=== PATIENT | male | born 1930 | race Caucasian/White ===

== ENCOUNTER 2017-04-12 10:20 | Outpatient (CLI) | payer MEDICARE, OTHER ==
[2017-04-12 13:29] LABS: BASOPHILS # (AUTO) 0.1 10^3/uL (0.0-0.1); BASOPHILS % (AUTO) 0.7 %; EOSINOPHILS # (AUTO) 0.2 10^3/uL (0.0-0.7); EOSINOPHILS % (AUTO) 1.9 %; HCT - HEMATOCRIT 37.6 % (42.0-52.0); HGB - HEMOGLOBIN 12.4 g/dL (14.0-18.0); LYMPHOCYTES # (AUTO) 1.7 10^3/uL (1.5-3.5); MEAN CORPUSCULAR HEMOGLOBIN 32.3 pg (27.0-31.0); MEAN CORPUSCULAR VOLUME 98.1 fL (80.0-94.0); MEAN PLATELET VOLUME 10.4 fL (7.4-11.4); MONOCYTES # (AUTO) 1.5 10^3/uL (0.0-1.0); MONOCYTES % (AUTO) 13.6 %; NEUTROPHILS # (AUTO) 7.8 10^3/uL (1.5-6.6); NEUTROPHILS % (AUTO) 68.8 %; NUCLEATED RED BLOOD CELLS AUTO 0.1 /100WBC; RED BLOOD COUNT 3.83 10^6/uL (4.70-6.10); RED CELL DISTRIBUTION WIDTH 14.4 % (12.0-15.0); UNCORRECTED WHITE BLOOD COUNT 11.3 x10^3/uL; WHITE BLOOD COUNT 11.3 x10^3/uL (4.8-10.8)
[2017-04-12 13:54] LABS: ALBUMIN/GLOBULIN RATIO 1.7 (1.0-2.2); BILIRUBIN,TOTAL 2.7 mg/dL (0.2-1.0); CALCIUM 9.5 mg/dL (8.5-10.3); CREATININE 1.4 mg/dL (0.6-1.2); POTASSIUM 4.2 mmol/L (3.5-5.0)
== END 2017-04-12 10:21 | disposition home or self-care (01) ==
LOC: LAB.WCP 10:20
PROVIDERS: ATTEND Family Medicine
DX: N18.9 Chronic kidney disease, unspecified (principal); E03.9 Hypothyroidism, unspecified; R53.83 Other fatigue
CPT/HCPCS: 36415; 80053; 84443; 85025

== ENCOUNTER 2017-05-30 10:32 | Outpatient (CLI) | payer MEDICARE, OTHER | END 2017-05-30 10:33 | disposition critical access hospital (66) | LOC: EMS 10:32 | PROVIDERS: ATTEND Surgery | DX: R47.9 Unspecified speech disturbances (principal) | CPT/HCPCS: A0425; A0429 ==

== ENCOUNTER 2017-05-30 10:49 | Observation (INO) | payer MEDICARE, OTHER ==
--- NOTE | 2017-05-30 11:14 | ED Physician Documentation ---
History of Present Illness - Stated complaint Stated Complaint: SLURRED SPEECH - Chief complaint Chief Complaint: Neuro - Additonal information Additional information: pt went to PMD for INR - on coumadin for a fib noted to have expressive aphasia time onset approx 930 PMD did neuro eval, called [facility] for advice, and was directed to send pt to ER INR was 3 upon arrival pt speech has resolved pt denies (and PMD eval agrees) numbness wekanes new hearing or vision loss no recent illness such as fever cough NVD Review of Systems Constitutional: denies: Fever Eyes: denies: Loss of vision Ears: denies: Loss of hearing GI: denies: Abdominal Pain, Nausea, Vomiting : denies: Dysuria Neurologic: reports: Difficulty speaking. denies: Generalized weakness, Focal weakness, Numbness, Headache, Head injury Endocrine: reports: Easy bruising / bleeding Immunocompromised: denies: Immunocompromised PD PAST MEDICAL HISTORY - Past Medical History Past Medical History: Yes Cardiovascular: Hypertension, High cholesterol, Atrial fibrillation Endocrine/Autoimmune: HyPOthyroidism - Past Surgical History Past Surgical History: Yes Cardiovascular: Valve replacement - Present Medications Home Medications: Ambulatory Orders Medication Instructions Recorded Confirmed Carvedilol [Coreg] 25 mg BID 05/30/17 05/30/17 Celecoxib [CeleBREX] 200 mg DAILY 05/30/17 05/30/17 Digoxin 1 tab DAILY 05/30/17 05/30/17 Levothyroxine Sodium [Synthroid] 1 tab DAILY 05/30/17 05/30/17 Losartan Potassium [Cozaar] 100 mg DAILY 05/30/17 05/30/17 Simvastatin 20 mg DAILY 05/30/17 05/30/17 Warfarin [Coumadin] 1 tab DAILY 05/30/17 05/30/17 - Allergies Allergies/Adverse Reactions: Allergies Allergy/AdvReac Type Severity Reaction Status Date / Time amoxicillin trihydrate * Allergy Unknown Verified 05/30/17 10:59 [From Augmentin] potassium clavulanate * Allergy Unknown Verified 05/30/17 10:59 [From Augmentin] - Social History Does the pt smoke?: Yes Smoking Status: Light tobacco smoker Does the pt drink ETOH?: No PD ED PE NORMAL - Vitals Vital signs reviewed: Yes - HEENT HEENT: Atraumatic - Neck Neck: Supple, no meningeal sign - Cardiac Cardiac: RRR - Respiratory Respiratory: No respiratory distress, Clear bilaterally - Abdomen Abdomen: Soft, Non tender - Derm Derm: Normal color - Extremities Extremities: No deformity - Neuro Neuro: Alert and oriented X 3, fuel manager 2-12 intact, No motor deficit, No sensory deficit, Normal speech, Other (at 11 AM NIHSS zero) Results - Vitals Vitals: Vital Signs - 24 hr 05/30/17 05/30/17 10:50 13:02 Temperature 36.8 C Heart Rate 60 48 L Respiratory 18 20 Rate Blood Pressure 134/70 H 122/69 O2 Saturation 96 97 Oxygen O2 Source Room air - EKG (time done) 1058 Rate: Rate (enter#) (60) Rhythm: Atrial flutter Intervals: RBBB (partial) Ischemia: Non specific changes - Labs Labs: Laboratory Tests 05/30/17 05/30/17 05/30/17 11:21 11:21 11:21 WBC 10.6 RBC 3.88 L Hgb 12.7 L Hct 37.4 L MCV 96.5 H MCH 32.7 H MCHC 33.9 RDW 13.2 Plt Count 216 MPV 9.9 Neut # 7.2 H Lymph # 1.8 [place] # 1.4 H Eos # 0.2 Baso # 0.1 Absolute Nucleated RBC 0.00 Nucleated RBCs 0.0 PT 35.9 H INR 3.2 H Sodium 139 Potassium 4.3 Chloride 110 Carbon Dioxide 20 L Anion Gap 9.0 BUN 18 Creatinine 1.5 H Estimated GFR (MDRD) 45 L Glucose 108 H Calcium 9.2 Last Dose Date Last Dose Time Digoxin 05/30/17 11:21 WBC RBC Hgb Hct MCV MCH MCHC RDW Plt Count MPV Neut # Lymph # [place] # Eos # Baso # Absolute Nucleated RBC Nucleated RBCs PT INR Sodium Potassium Chloride Carbon Dioxide Anion Gap BUN Creatinine Estimated GFR (MDRD) Glucose Calcium Last Dose Date UNK Last Dose Time UNK Digoxin 1.3 - Rads (name of study) CTH Radiology: See rad report (no acute infarct bleed mass hydo, consider MRI) PD MEDICAL DECISION MAKING - ED course ED course: TIA in pt with flutter ABCD2 score 4 = moderate risk will req hospitalist place in obs for further work up such as echo and carotid imaging Departure - Departure Disposition: ED Place in Observation Clinical Impression: TIA (transient ischemic attack) Qualifiers: Transient cerebral ischemia type: unspecified Qualified Code(s): G45.9 - Transient cerebral ischemic attack, unspecified
[2017-05-30 11:28] LABS: BASOPHILS # (AUTO) 0.1 10^3/uL (0.0-0.1); EOSINOPHILS # (AUTO) 0.2 10^3/uL (0.0-0.7); EOSINOPHILS % (AUTO) 1.8 %; HCT - HEMATOCRIT 37.4 % (42.0-52.0); HGB - HEMOGLOBIN 12.7 g/dL (14.0-18.0); LYMPHOCYTES # (AUTO) 1.8 10^3/uL (1.5-3.5); LYMPHOCYTES % (AUTO) 16.5 %; MEAN CORPUSCULAR HEMOGLOBIN 32.7 pg (27.0-31.0); MEAN CORPUSCULAR HGB CONC 33.9 g/dL (32.0-36.0); MEAN CORPUSCULAR VOLUME 96.5 fL (80.0-94.0); MEAN PLATELET VOLUME 9.9 fL (7.4-11.4); MONOCYTES # (AUTO) 1.4 10^3/uL (0.0-1.0); NEUTROPHILS # (AUTO) 7.2 10^3/uL (1.5-6.6); NEUTROPHILS % (AUTO) 67.7 %; RED BLOOD COUNT 3.88 10^6/uL (4.70-6.10); RED CELL DISTRIBUTION WIDTH 13.2 % (12.0-15.0); UNCORRECTED WHITE BLOOD COUNT 10.6 x10^3/uL; WHITE BLOOD COUNT 10.6 x10^3/uL (4.8-10.8)
[2017-05-30 11:36] LABS: CALCIUM 9.2 mg/dL (8.5-10.3); CREATININE 1.5 mg/dL (0.6-1.2); INR 3.2 (0.8-1.2); POTASSIUM 4.3 mmol/L (3.5-5.0); PT - PROTHROMBIN TIME 35.9 secs (9.9-12.6)
--- NOTE | 2017-05-30 12:27 | CT Preliminary Report ---
Exam: CT Head W/O IMPRESSION: 1. No definite acute infarct, intracranial hemorrhage, mass, or hydrocephalus. 2. Mild white matter changes that are age indeterminate, but appear chronic suggesting sequela of chr onic small vessel ischemic disease. If there is clinical concern for acute stroke or if clinical symp toms persist an MR brain without contrast can be considered to evaluate for small or subtle infarct. [facility] SITE ID: [id number]
--- NOTE | 2017-05-30 12:30 | CT Report ---
EXAM: CT HEAD EXAM DATE: 05/30/2017 11:57 AM. CLINICAL HISTORY: 86-year-old with supratherapeutic INR with a seizure COMPARISON: None. TECHNIQUE: Multiaxial CT images were obtained from the foramen magnum to the vertex. IV contrast: Non e. Reformats: Coronal. In accordance with CT protocol optimization, one or more of the following dose reduction techniques w ere utilized for this exam: automated exposure control, adjustment of mA and/or KV based on patient s ize, or use of iterative reconstructive technique. FINDINGS: Parenchyma: No acute parenchymal hemorrhage, mass, or midline shift. There is mild bilateral areas of white matter hypoattenuation seen in the absence of prior studies is age indeterminate, but appears chronic. No convincing CT evidence of acute infarct. Extraaxial Spaces: No abnormal extra-axial fluid collection/mass seen. Ventricles: Ventricles and sulci appear prominent but appropriate fixative volume loss. Cisterns are patent. Sinuses: Atretic left maxillary sinus with mild mucosal thickening. Remaining visualized paranasal si nuses, mastoid air cells, and middle ear cavities appear clear. Orbits: Changes of bilateral lens replacement. Bones: No evidence of fracture or calvarial defect. Other: Vascular calcifications of the cavernous ICA segments. IMPRESSION: 1. No definite acute infarct, intracranial hemorrhage, mass, or hydrocephalus. 2. Mild white matter changes that are age indeterminate, but appear chronic suggesting sequela of chr onic small vessel ischemic disease. If there is clinical concern for acute stroke or if clinical symp toms persist an MR brain without contrast can be considered to evaluate for small or subtle infarct. [facility] Referring Provider Line: [phone] SITE ID: [id number]
[2017-05-30] MEDS ORDERED: ONDANSETRON ODT 4 MG TABLET TL PRN (13:07)
[2017-05-30] MEDS ORDERED: SODIUM CHLORIDE FLUSH 0.9% 10 ML SYRINGE IVP PRN (13:07)
[2017-05-30] MEDS ORDERED: ACETAMINOPHEN 325 MG TABLET PO PRN (13:07)
[2017-05-30] MEDS ORDERED: ONDANSETRON 4 MG/2 ML VIAL IVP PRN (13:07)
[2017-05-30] MEDS ORDERED: SODIUM CHLORIDE 0.9% 1,000 ML IV ONE (14:38)
--- NOTE | 2017-05-30 15:13 | HISTORY & PHYSICAL EXAMINATION ---
Chief Complaint - Chief Complaint Chief Complaint: TIA; difficulty speaking History of Present Illness - Admitted From Admitted From:: Emergency Department - History Obtained From Records Reviewed: ED, Electrical Project Engineer, Primary care provider History obtained from: Patient, Spouse, and records reviewed. - History of Present Illness HPI Comment/Other: 86-year-old pleasant, white male with past medical history of hypertension, cardiomegaly, heart failure, rate-controlled atrial fibrillation, stent placement RCA (2007) and aortic stenosis with a [employer] aortic valve replacement (1986) on chronic anticoagulation on coumadin. He saw his lance crewmember, Dr. Askew on 03/2017 and had his annual echocardiogram completed on 05/05/2017 at [facility]. Today, the patient headed to his PCP, Dr. Napoles for his routine PT/INR lab draw when he noticed difficulty speaking and finding words. He was immediately evaluated by a nurse at the clinic and Dr. Napoles completed a neurological assessment. MD consulted with [place] neurology who advised transfer to the hospital via EMS with concern of a stroke with INR 3.0 (clinic value). This was a witnessed event. His and ED staff deny any other symptoms: facial droop, extremity weakness , gait instability, headache, numbness or tingling. In the emergency department his symptoms completely resolved approximately one hour after initiation. A head CT completed in the ED showed (1) no definite acute infarct, intracranial hemorrhage, mass or hydrocephalus (2) mild white matter changes that appears chronic with no concern for acute stroke. Patient's chart was reviewed on [facility] and he reliably attends his doctor's appointments and has had an annual echocardiogram for the past 3 years. His most recent echocardiagrm from 05/05/2017 was faxed to [facility] for review as it was not available on [facility] yet. His echo from 05/05/2017 showed a left ejection fraction 40% and regional wall motion abnormalities, primarily inferior and a normal prosthetic valve placement. His last stress test was 2014 showed fixed, irreversible distal inferior wall and distal apex. Patient is admitted overnight on observation status. He will receive an carotid ultrasound, we will not obtain an echocardiogram as he had one on 05/05/2017 that we were able to review. We are unable to obtain an MRI due to the patient' s mechanical heart valve and this was reviewed with the family. We will continue him on his home medications for his heart failure and CAD during hospitalization: statin therapy, anticoagulation, digoxin, coreg, and cozaar. At this point he is on appropriate therapy for TIA/stroke prevention and adjustments to his medications should be consulted with his PCP and/or lance crewmember. Lipid levels will be drawn in the morning and it may be appropriate to change his statin therapy from the moderate to the high regimen. He will be observed overnight with neurological assessments every 2-4 hours and he was informed to call staff if he feels symptoms are returning. Review of Systems - Constitutional Constitutional: reports: Fatigue (Increasing over the past 1.5 years, sleeping until late in the morning. PCP is adjusting his thyroid medication which seems to be helping a little.), Poor appetite (decreased over the past year.). denies : Fever, Chills, Weakness, Weight gain, Weight loss - Eyes Eyes: reports: Vision loss (Receiving treatment for cataracts and macular degeneration.), Corrective lenses (Awaiting new lenses) - Ears, Nose & Throat Ears, Nose & Throat: denies: Hearing loss, Hearing aids, Nosebleeds, Dentures - Cardiovascular Cariovascular: reports: Irregular heart rate, Chest pain. denies: Palpitations , Edema, Lightheadedness, Syncope, Orthopnea - Respiratory Respiratory: denies: Cough, Sputum production, Wheezing, Orthopnea - Gastrointestinal Gastrointestinal: denies: Abdominal pain, Abdominal distention, Constipation, Diarrhea, Black stools, Bloody stools, Nausea, Vomiting - Musculoskeletal Musculoskeletal: reports: Joint pain (pain to right hip for the past 2-3 years, worsening over the last year that is now limiting his activity.). denies: Back pain - Integumentary Integumentary: denies: Rash, Lesions - Neurological Neurological: reports: Memory problems (Patient and have noticed problems with his short-term memory over the past year.), Slurred speech (60 minute episode of speech difficulty this morning.). denies: General weakness, Focal weakness, Headache, Dizziness, Numbness, Pre-existing deficit, Abnormal gait - Psychiatric Psychiatric: denies: Depression, Anxiety - Hematologic/Lymphatic Hematologic/Lymphatic: reports: Bruising (on coumadin since 1986). denies: Anemia, Blood clots History - Past Medical History Cardiovascular: reports: Congestive heart failure, Hypertension, High cholesterol, Coronary artery disease, Atrial fibrillation (rate controlled), Valve disorder (aortic stenosis post valve replacement) Respiratory: reports: None Neuro: reports: None Endocrine/Autoimmune: reports: HyPOthyroidism GI: reports: None : reports: Kidney stones (microscopic hematuria worked up in 2006, still stones in right and left kidneys.) HEENT: reports: Macular degeneration, Other (Cataracts) Psych: reports: None Musculoskeletal: reports: Osteoarthritis (right hip) Derm: reports: None MRSA Hx?: No - Past Surgical History Cardiovascular: reports: Coronary stent (RCA 2007), Valve replacement ([employer] aortic valve replacement 1986. ) HEENT: reports: Cataracts (within the past few months) Derm: reports: Skin cancer surgery (removed from left chest in clinic 04/2017) - Family & Social History Family History Comment/Other: Father (76) Gastric cancer and from complication of surgery, pneumonia. Mom (92) natural causes 2 daughter and 1 son all healthy. No family history of diabetes, CVA, or MS. Living arrangement: At home Living Situation: With spouse/s.o. Social History Notes: Patient grew up in [place] and moved to [place] in the [place]. He raised his 2 daughters and son on [facility]. He retired in 1973 from the [employer] service. His son lives nearby and his daughters live in [facility] [facility]. He ambulates without assistive devices but the pain to his right hip has restricted his mobility over the past 1.5 years. He is unable to complete yardwork anymore. He spends the majority of his time working on his computer, writing memoirs of his life including the [place] war. He always desired to be a underwriter mortgage loan. His prepares all meals. - Substance History Use: Uses substance without health or social issues: Tobacco (smokes a pipe 3-4 times per week "I mostly like the smell, sometimes I just smell it.") - POLST Patient has POLST: No Meds/Allgy - Home Medications Home Medications: Ambulatory Orders Medication Instructions Recorded Confirmed Carvedilol [Coreg] 25 mg BID 05/30/17 05/30/17 Celecoxib [CeleBREX] 200 mg DAILY 05/30/17 05/30/17 Digoxin 125 mcg DAILY 05/30/17 05/30/17 Levothyroxine Sodium [Synthroid] 1 tab DAILY 05/30/17 05/30/17 Losartan Potassium [Cozaar] 100 mg DAILY 05/30/17 05/30/17 Simvastatin 20 mg DAILY 05/30/17 05/30/17 Warfarin [Coumadin] 2.5 mg PO SUMOWEFR 05/30/17 05/30/17 Warfarin [Coumadin] 5 mg TUTHSA 05/30/17 05/30/17 - Allergies Allergies/Adverse Reactions: Allergies Allergy/AdvReac Type Severity Reaction Status Date / Time amoxicillin trihydrate * Allergy Unknown Verified 05/30/17 10:59 [From Augmentin] potassium clavulanate * Allergy Unknown Verified 05/30/17 10:59 [From Augmentin] Exam - Vital Signs Reviewed Vital Signs: Yes Vital Signs: Vital Signs x48h Temp Pulse Resp BP Pulse Ox 05/30/17 14:35 36.2 C L 58 L 17 146/76 H 97 Vital Signs - 24 hr 05/30/17 05/30/17 05/30/17 10:50 13:02 14:35 Temperature 36.8 C 36.2 C L Heart Rate 60 48 L Heart Rate [ 58 L Brachial] Respiratory 18 20 17 Rate Blood Pressure 134/70 H 122/69 Blood Pressure 146/76 H [Right Brachial artery] O2 Saturation 96 97 97 05/30/17 16:05 Temperature 36.5 C Heart Rate Heart Rate [ 60 Brachial] Respiratory 18 Rate Blood Pressure Blood Pressure 149/67 H [Right Brachial artery] O2 Saturation 98 Oxygen O2 Source Room air - Physical Exam General Appearance: positive: No acute distress, Alert, Other (well-dressed, pleasant gentleman. Struggling with his short-term memory and recall specifics of the day; he refers to his frequently to clarify details.) Eyes Bilateral: positive: Normal inspection, PERRL, EOMI, No lid inflammation, Conjunctivae nml, No scleral icterus ENT: positive: ENT inspection nml, Pharynx nml, No signs of dehydration Neck: positive: Nml inspection, Thyroid nml, Trachea midline. negative: Lymphadenopathy (R), Lymphadenopathy (L), Carotid bruit Respiratory: positive: Chest non-tender, No respiratory distress, Breath sounds nml, Other (Speaking in full sentences. No accessory muscle use. AP<Lat diameter. No clubbing of fingernails.). negative: Wheezes, Rales, Rhonchi Cardiovascular: positive: Irregularly irregular, Other (Mechanical click). negative: JVD present, Decreased pulse(s) Peripheral Pulses: positive: 2+ (Radial and pedal.) Abdomen: positive: Non-tender, No organomegaly, Nml bowel sounds, No distention Back: positive: Nml inspection Skin: positive: Color nml, No rash, Warm, Dry Extremities: positive: Non-tender, Full ROM, Nml appearance, No pedal edema Neurologic/Psychiatric: positive: Oriented x3 (difficulty with recalling recent events, short-term memory impairment.), CN's nml (2-12), Motor nml, Sensation nml, Mood/affect nml. negative: Weakness (Symmetrical muscle mass in upper and lower extremities 5/5. Equal cycling instructor bilaterally. Negative Romberg and pronator drift tests. Gait balanced. Light touch intact in upper and lower extremities.) , Facial droop, Slurred/abnml speech Conclusion/Plan - Problem List (1) TIA (transient ischemic attack) Conclusion/Plan: Acute episode of witnessed dysphasia with no other associated symptoms, evaluated by his PCP who consulted with [place] Neuro before sending him via EMS to the Emergency Department. He has been anticoagulated on coumadin for a mechanical valve since 1986. He has also has rate controlled atrial fibrillation /atrial flutter. Head CT obtained immediately showing no acute hemorrhage. His symptoms lasted > 60 minutes which contributes to a CHADS2 score for A-fib stroke risk of 3; which is an annual stroke risk of 5.9% if the patient was not on coumadin, although he is therapeutic on his coumadin at 3.2. His recommended INR per his documentation is 2.5-3.5 due to his mechanical valve. He was misidentified as supratherapeutic in the emergency department. Patient will be monitored overnight for recurrence of symptoms. * Head CT: (1) no definite acute infarct, intracranial hemorrhage, mass or hydrocephalus (2) mild white matter changes that appears chronic with no concern for acute stroke. * Echocardiogram completed outpatient by [facility] 05/05/17 thus not indicated during this admission. * Left ventricular ejection fraction 40% and regional wall motion abnormalities , primarily inferior and a normal prosthetic valve placement. * Stress test 12/2014: Fixed irreversible distal inferior wall and distal apex. * Carotid Ultrasound to be completed 05/30/17. * Lipid panel 05/31/2017 - adjust statin if indicated: consider changing patient from moderate to high statin therapy. * Unable to obtain MRI d/t mechanical aortic valve: discussed this with the family and they understand. * Continue on routine home coumadin dosing. * Continue home medications which happen to be recommendations for stroke prevention: statin, bp management, anticoagulation. * Assess neurological status every 2-4 hours. * Patient educated to notify staff is symptoms recur. Qualifiers: Transient cerebral ischemia type: unspecified Qualified Code(s): G45.9 - Transient cerebral ischemic attack, unspecified (2) Chronic atrial fibrillation Conclusion/Plan: Chronic atrial fibrillation/flutter - rate controlled on digoxin. His heart rate is controlled between 48-60 bpm. He is currently on anticoagulation for his mechanical valve with a goal 2.5-3.5. He was mistakenly identified as supra- therapeutic in the emergency department for his INR of 3.2. * Daily PT/INR * continue digoxin; therapeutic digoxin level on admit 1.3. * Continue coumadin at home dose. (3) H/O aortic valve replacement Conclusion/Plan: Chronic: Anticoagulation adequate with current coumadin dosing. Patient with a [facility] [facility] aortic valve (mechanical) placed at [place] in [place] in 1986. Recommendations per his paperwork states to maintain INR between 2.5 and 3.5. Today he was 3.2, no changes necessary to his scheduled doses. (4) Chronic systolic congestive heart failure, NYHA class 2 Conclusion/Plan: Chronic heart failure managed by Dr. Askew at [facility]. Patient's recent Echo was reviewed (see above). Patient denies any shortness of breath, extremity edema, recent changes in weight and denies orthopnea. * Continue home medications: coreg, cozaar, digoxin, and simvastatin. * Vital signs every 8 hours. (5) Chronic kidney disease (CKD) Conclusion/Plan: Chronic kidney disease patient's eGFR today was 45 with a creatinine level 1.5; on 04/12/2017 his eGFR was 48 with a creatinine level 1.4. Mild decline in function since March. * Encourage PO fluids. * Continue losartan and angiotensin II receptor antagonist for renal protection. Qualifiers: Chronic kidney disease stage: stage 3 (moderate) Qualified Code(s): N18.3 - Chronic kidney disease, stage 3 (moderate) (6) Hypertension Conclusion/Plan: Chronic hypertension managed by lance crewmember. * Continue on home medications. Qualifiers: Hypertension type: unspecified secondary hypertension Qualified Code(s): I15.9 - Secondary hypertension, unspecified; I15 - Secondary hypertension (7) Memory impairment of gradual onset Conclusion/Plan: Impaired short-term memory over the past year consistent with age-related memory loss versus early dementia. Further assessment recommended by PCP who is familiar with the patient and his status. * Redirect patient as indicated. * Keep day/night schedule to prevent delirium. * Up to chair for meals. (8) DVT prophylaxis Conclusion/Plan: Patient on coumadin, INR 3.2 upon admission. - Lab Results Fish Bones: 05/30/17 11:21 05/30/17 11:21 Other Lab Results: Laboratory Results - last 24 hr 05/30/17 05/30/17 05/30/17 11:21 11:21 11:21 WBC 10.6 RBC 3.88 L Hgb 12.7 L Hct 37.4 L MCV 96.5 H MCH 32.7 H MCHC 33.9 RDW 13.2 Plt Count 216 MPV 9.9 Neut # 7.2 H Lymph # 1.8 Dent # 1.4 H Eos # 0.2 Baso # 0.1 Absolute Nucleated RBC 0.00 Nucleated RBCs 0.0 PT 35.9 H INR 3.2 H Sodium 139 Potassium 4.3 Chloride 110 Carbon Dioxide 20 L Anion Gap 9.0 BUN 18 Creatinine 1.5 H Estimated GFR (MDRD) 45 L Glucose 108 H Calcium 9.2 Last Dose Date Last Dose Time Digoxin 05/30/17 11:21 WBC RBC Hgb Hct MCV MCH MCHC RDW Plt Count MPV Neut # Lymph # Dent # Eos # Baso # Absolute Nucleated RBC Nucleated RBCs PT INR Sodium Potassium Chloride Carbon Dioxide Anion Gap BUN Creatinine Estimated GFR (MDRD) Glucose Calcium Last Dose Date UNK Last Dose Time UNK Digoxin 1.3 - Diagnostic Imaging Results Diagnostic Imaging Results: positive: Final report reviewed Diagnostic Imaging Results Comments: Head CT read by radiologist: 1. No definite acute infarct, intracranial hemorrhage, mass or hydrocephalus. 2. Mild white matter changes that are age indeterminate, but appear chronic suggesting sequela of chronic small vessel ischemic disease. No concern for acute stroke. - EKG Results EKG Interpreted Independently: Yes EKG Comparison: No prior EKG EKG Findings: 3:1 atrial flutter. Rate 60. Right bundle branch block with no ST segment changes. Issues/Core Measures - Anticipated LOS Anticipated Stay Length: Less than 2 midnights - DVT/VTE - Prophylaxis VTE/DVT Device ordered at admit?: No VTE/DVT Prophylaxis med ordered at admit?: Yes
[2017-05-30] MEDS: SODIUM CHLORIDE FLUSH 0.9% 10 ML SYRINGE IVP SCH ×2 (15:15→21:30)
[2017-05-30] MEDS ORDERED: WARFARIN 2.5 MG TABLET PO SCH (19:00)
[2017-05-30] MEDS ORDERED: ATORVASTATIN 10 MG TABLET PO SCH (21:00)
--- NOTE | 2017-05-30 21:16 | Ultrasound Preliminary Report ---
Exam: US Carotid Doppler Complete IMPRESSION: No hemodynamically significant stenoses. Validated velocity measurements with angiographic measurements and velocity criteria are extrapolated from diameter data as defined by the Society of Radiologists in Ultrasound Consensus Conference Radi ology 2003; 229;340-346. [facility] SITE ID: [id number]
[2017-05-30] MEDS: CARVEDILOL 12.5 MG TABLET PO SCH (21:29)
--- NOTE | 2017-05-30 21:30 | Ultrasound Report ---
EXAM: CAROTID DOPPLER ULTRASOUND EXAM DATE: 05/30/2017 05:29 PM. CLINICAL HISTORY: TIA symptoms, slurred speech. COMPARISON: None. TECHNIQUE: Real-time sonographic vascular imaging was performed by the synthetic chemist through the caroti d arterial system with a linear transducer utilizing color-flow, Doppler flow and spectral analysis. Multiple retail wireless sales representative static images were saved for review. FINDINGS: Mild bilateral irregular plaque formation. Right: RCCA Prox: PSV 94.6 cm/sec. RCCA Dist: PSV 71 cm/sec, EDV 24 cm/sec. RECA: PSV 106 cm/sec. R Bulb: PSV 76 cm/sec, EDV 23 cm/sec, ICA/CCA ratio 1.04 . DENIZ Prox: PSV 48 cm/sec, EDV 15 cm/sec, ICA/CCA ratio 0.67 . DENIZ Mid: PSV 70 cm/sec, EDV 18 cm/sec, ICA/CCA ratio 0.98 . DENIZ Dist: PSV 83 cm/sec, EDV 17 cm/sec, ICA/CCA ratio 1.16 . RVA: PSV 36 cm/sec. RVA flow direction: Antegrade. Left: LCCA Prox: PSV 65 cm/sec. LCCA Dist: PSV 72 cm/sec, EDV 21 cm/sec. LECA: PSV 80 cm/sec. L Bulb: PSV 94 cm/sec, EDV 10 cm/sec, ICA/CCA ratio 1.3 . LICA Prox: PSV 49 cm/sec, EDV 8 cm/sec, ICA/CCA ratio 0.68 . LICA Mid: PSV 40 cm/sec, EDV 7 cm/sec, ICA/CCA ratio 0.55 . LICA Dist: PSV 40 cm/sec, EDV 20 cm/sec, ICA/CCA ratio 0.55 . LVA: PSV 53 cm/sec. LVA flow direction: Antegrade. Other: None. IMPRESSION: No hemodynamically significant stenoses. Validated velocity measurements with angiographic measurements and velocity criteria are extrapolated from diameter data as defined by the Society of Radiologists in Ultrasound Consensus Conference Radi ology 2003; 229;340-346. [facility] Referring Provider Line: [phone] SITE ID: [id number]
[2017-05-31 06:08] LABS: INR 2.9 (0.8-1.2); PT - PROTHROMBIN TIME 32.3 secs (9.9-12.6)
[2017-05-31 06:22] LABS: CHOL/HDL RATIO 3.1 (<5.0); CHOLESTEROL 106 mg/dL; HDL CHOLESTEROL 34 mg/dL; TRIGLYCERIDES 193 mg/dL; VLDL CHOLESTEROL 39 mg/dL
[2017-05-31] MEDS: SODIUM CHLORIDE FLUSH 0.9% 10 ML SYRINGE IVP SCH (06:40)
[2017-05-31 08:05] VITALS: BP 131/59
[2017-05-31] MEDS: CARVEDILOL 12.5 MG TABLET PO SCH (08:21)
[2017-05-31] MEDS: CELECOXIB 100 MG CAPSULE PO SCH ×2 (08:22→08:33)
[2017-05-31] MEDS ORDERED: LEVOTHYROXINE 112 MCG TABLET PO SCH (09:00)
[2017-05-31] MEDS ORDERED: DIGOXIN 125 MCG TABLET PO SCH (09:00)
[2017-05-31] MEDS ORDERED: LOSARTAN 50 MG TABLET PO SCH (09:00)
[2017-05-31] MEDS ORDERED: DIGOXIN PO SCH (09:00)
[2017-05-31] MEDS ORDERED: POLYETHYLENE GLYCOL 3350 17 GM PACKET PO SCH (09:00)
--- NOTE | 2017-05-31 11:14 | Discharge Plan ---
Discharge Plan Disposition: 01 Home, Self Care Condition: Fair Diet: Cardiac Activity Restrictions: Activity as Tolerated Shower Restrictions: No Driving Restrictions: No (As previously allowed) Weight Bearing: Full Weight Additional Instructions or Follow Up instructions: F/U with your PCP and Engineer First Assistant No Smoking: If you smoke, Please STOP! Call for help.
--- NOTE | 2017-05-31 13:39 | DISCHARGE SUMMARY ---
DATE OF ADMISSION: 05/30/2017 DATE OF DISCHARGE: 05/31/2017 CHIEF COMPLAINT: TIA with difficulty speaking. HISTORY: This is an 86-year-old white male with a history of chronic atrial fibrillation, coronary ar javier disease with stenting, ischemic cardiomyopathy with chronic systolic heart failure, status post [facility] mechanical aortic valve replacement in 1986 and on chronic Coumadin therapy. He had seen his service planner approximately 2 months prior and had an annual echocardiogram done approximately 1 rc h prior to this admission, which showed a LVEF of 40%, with inferoapical wall motion abnormality and acceptable aortic valve prosthetic function with acceptable gradient but a very small periprosthetic leak. The patient presented to his primary care doctor for his routine blood draw and complained of difficu lty speaking and finding words, and was evaluated and sent to higher level of care. The and ED s taff denied facial droop, extremity weakness, gait instability, and the INR on presentation was 3.0. The symptoms subsided after 1 month and he was not felt to be a candidate for acute intervention with anticoagulant or other therapy. PHYSICAL EXAMINATION ON PRESENTATION: Showed resolving complaints of trouble with speech and respirat ory status stable, valve had normal click sounds with a very faint systolic murmur rated 1/6 at the b ase of the heart. His EKG showed atrial fibrillation with a controlled rate and nonspecific changes. MEDICATIONS PRIOR TO ADMISSION 1. Coreg 25 p.o. b.i.d. 2. Celebrex 200 mg daily. 3. Digoxin 0.125 mg daily. 4. Synthroid. 5. Cozaar. 6. Simvastatin. 7. Coumadin. ALLERGIES 1. AMOXICILLIN. 2. POTASSIUM. HOSPITAL COURSE: CT of the head obtained immediately showed no acute hemorrhage. His symptoms lasted approximately 1 hour, then resolved completely. His INR was therapeutic at 3.2 on his Coumadin treatm ent. A carotid ultrasound was done that showed mild bilateral plaque. A lipid panel was done that della wed a LDL of 33 on his current treatment. An MRI could not be done due to his mechanical valve. An ec hocardiogram was not repeated, not indicated during this admission according to the admission HandP b ecause of the recent one done less than one month prior. He had neurological assessment and there was no recurrence of his urologic symptoms. Atrial fibrillation was well controlled during this admission on his current medical therapy. Aortic valve replacement. He had proper INR results with a target INR between 2.5 and 3.5, and no lana nges were made in his Coumadin schedule. On the second day, his INR was 2.9. Chronic systolic heart failure with [place] Heart Association class 2. There were no complaints. Dur ing this admission. His home medications were continued with no changes in dose. Chronic kidney disease with a creatinine level of 1.5. No change in his losartan was done and continu ed observation of creatinine is advised. Hypertension. He was stable during this admission on his home medications. Mild impairment of memory was noted, which apparently is his baseline. Patient was able to communicat e appropriately and undertake ADLs independently. PLAN: Follow up with PCP and his service planner for further management of his medical therapy. JOB #: [id number] EXT JOB #:[id number]
[2017-05-31] MEDS ORDERED: WARFARIN 5 MG TABLET PO SCH (19:00)
== END 2017-05-31 11:35 | disposition home or self-care (01) ==
LOC: EDUNIT# → ED 10:49 → OBS 13:07
PROVIDERS: ADMIT Specialist; ATTEND Internal Medicine
DX: G45.9 Transient cerebral ischemic attack, unspecified (principal); I48.2 Chronic atrial fibrillation; I48.92 Unspecified atrial flutter; I50.22 Chronic systolic (congestive) heart failure; N18.3 Chronic kidney disease, stage 3 (moderate); I15.9 Secondary hypertension, unspecified; R41.3 Other amnesia; I25.10 Atherosclerotic heart disease of native coronary artery without angina pectoris; I25.5 Ischemic cardiomyopathy; E78.00 Pure hypercholesterolemia, unspecified; E03.9 Hypothyroidism, unspecified; F17.290 Nicotine dependence, other tobacco product, uncomplicated; Z95.5 Presence of coronary angioplasty implant and graft; Z79.01 Long term (current) use of anticoagulants; Z95.2 Presence of prosthetic heart valve
CPT/HCPCS: 36415; 70450; 80048; 80061; 80162; 83721; 85025; 85610; 93005; 93880; 99284; A9270; G0378

== ENCOUNTER 2018-04-17 | Outpatient (CLI) | END 2018-04-17 01:20 | disposition critical access hospital (66) | CPT/HCPCS: A0425; A0427 ==

== ENCOUNTER 2018-04-17 01:38 | Inpatient (IN) | payer MEDICARE, OTHER ==
[2018-04-17 02:13] LABS: INR 3.1 (0.8-1.2); PT - PROTHROMBIN TIME 33.6 secs (9.9-12.6)
[2018-04-17 02:29] LABS: ALBUMIN 3.8 g/dL (3.2-5.5); ALBUMIN/GLOBULIN RATIO 1.4 (1.0-2.2); BILIRUBIN,TOTAL 3.5 mg/dL (0.2-1.0); CALCIUM 8.9 mg/dL (8.5-10.3); CREATININE 1.3 mg/dL (0.6-1.2); MAGNESIUM 1.6 mg/dL (1.7-2.8); PHOSPHORUS 2.5 mg/dL (2.5-4.6); TOTAL PROTEIN 6.6 g/dL (6.7-8.2)
[2018-04-17 02:31] LABS: BASOPHILS % (AUTO) 0.2 %; EOSINOPHILS % (AUTO) 0.2 %; HGB - HEMOGLOBIN 11.7 g/dL (14.0-18.0); LYMPHOCYTES # (AUTO) 0.3 10^3/uL (1.5-3.5); LYMPHOCYTES % (AUTO) 2.3 %; MEAN CORPUSCULAR HEMOGLOBIN 31.6 pg (27.0-31.0); MEAN CORPUSCULAR HGB CONC 32.6 g/dL (32.0-36.0); MEAN CORPUSCULAR VOLUME 96.9 fL (80.0-94.0); MEAN PLATELET VOLUME 9.6 fL (7.4-11.4); MONOCYTES # (AUTO) 0.1 10^3/uL (0.0-1.0); MONOCYTES % (AUTO) 0.7 %; NEUTROPHILS # (AUTO) 14.6 10^3/uL (1.5-6.6); NEUTROPHILS % (AUTO) 96.6 %; PLT - PLATELET COUNT 230 10^3/uL (130-450); RED BLOOD COUNT 3.72 10^6/uL (4.70-6.10); RED CELL DISTRIBUTION WIDTH 15.7 % (12.0-15.0); WHITE BLOOD COUNT 15.1 x10^3/uL (4.8-10.8)
--- NOTE | 2018-04-17 02:37 | XRAY Report ---
Procedure Date: 04/17/2018 Accession Number: [id number] / [id number] Procedure: XR - Chest 1 View X-Ray CPT Code: 70061 FULL RESULT: EXAM: CHEST RADIOGRAPHY EXAM DATE: 04/17/2018 02:21 AM. CLINICAL HISTORY: Fever, history of lung failure. COMPARISON: None. TECHNIQUE: 1 view. FINDINGS: Lungs/Pleura: Diffuse mild interstitial opacities. No large effusion. No gross pneumothorax. Mediastinum: Mild cardiomegaly. No mediastinal shift. Other: Post-median sternotomy. IMPRESSION: 1. No definite pneumonia. 2. Mild CHF. [facility]
[2018-04-17] MEDS ORDERED: cefTRIAXone 1 GM in SODIUM CHLORIDE 0.9% MINIBAG 100 ML IV STA (02:41)
--- NOTE | 2018-04-17 02:42 | ED Physician Documentation ---
PD HPI DYSPNEA - Stated complaint Stated Complaint: FALL OFF OF BED, SOA,WEAKNESS - Chief complaint Chief Complaint: General - History obtained from History obtained from: Patient, EMS - History of Present Illness Timing - onset: Yesterday Timing - onset during: Rest Timing - details: Gradual onset, Still present Improved by: O2 Associated symptoms: Fever, Cough, Wheezing, Bilateral edema Similar symptoms before: No diagnosis Recently seen: Not recently seen - Additional information Additional information: patient is an 87 year old male with distant cardiac surgery and other unknown past medical history who was brought in by ems for shortness of breath. According to ems patient had fallen out of bed this morning. Patient sustained no injuries but when they were helping him up he was short of breath and hypoxic in the 90s. patient was treated with a duoneb that gave partial relief. Review of Systems Unable to obtain: Confused PD PAST MEDICAL HISTORY - Past Medical History Past Medical History: Yes Cardiovascular: Congestive heart failure, Hypertension, High cholesterol, Coronary artery disease, Atrial fibrillation, Valve disorder Respiratory: None Endocrine/Autoimmune: HyPOthyroidism GI: None : Kidney stones HEENT: Macular degeneration, Other Psych: None Musculoskeletal: Osteoarthritis Derm: None - Past Surgical History Past Surgical History: Yes General: Colonoscopy Cardiovascular: Coronary stent, Valve replacement HEENT: Cataracts Derm: Skin cancer surgery - Present Medications Home Medications: Ambulatory Orders Medication Instructions Recorded Confirmed Carvedilol [Coreg] 25 mg BID 05/30/17 05/30/17 Celecoxib [CeleBREX] 200 mg DAILY 05/30/17 05/30/17 Digoxin 125 mcg DAILY 05/30/17 05/30/17 Levothyroxine Sodium [Synthroid] 1 tab DAILY 05/30/17 05/30/17 Losartan Potassium [Cozaar] 100 mg DAILY 05/30/17 05/30/17 Simvastatin 20 mg DAILY 05/30/17 05/30/17 Warfarin [Coumadin] 2.5 mg PO SUMOWEFR 05/30/17 05/30/17 Warfarin [Coumadin] 5 mg TUTHSA 05/30/17 05/30/17 Carvedilol [Coreg] 25 mg PO BID tablet 05/31/17 Celecoxib [CeleBREX] 200 mg PO DAILY capsule 05/31/17 Digoxin [Lanoxin] 125 mcg PO DAILY tablet 05/31/17 Levothyroxine [Synthroid] 112 mcg PO DAILY tablet 05/31/17 Losartan [Cozaar] 100 mg PO DAILY tablet 05/31/17 Warfarin [Coumadin] 2.5 mg PO SUMOWEFR tablet 05/31/17 Warfarin [Coumadin] 5 mg PO TuThSa tablet 05/31/17 - Allergies Allergies/Adverse Reactions: Allergies Allergy/AdvReac Type Severity Reaction Status Date / Time amoxicillin trihydrate * Allergy Unknown Verified 04/17/18 01:48 [From Augmentin] potassium clavulanate * Allergy Unknown Verified 04/17/18 01:48 [From Augmentin] - Social History Does the pt smoke?: Yes Smoking Status: Current some day smoker Does the pt drink ETOH?: No Does the pt have substance abuse?: No - Immunizations Immunizations are current?: Yes - POLST Patient has POLST: No PD ED PE NORMAL - Vitals Vital signs reviewed: Yes - HEENT HEENT: Atraumatic - Abdomen Abdomen: Soft, Non distended - Derm Derm: No rash - Neuro Eye Opening: Spontaneous PD ED PE EXPANDED - HEENT HEENT: Dry mucous membranes - Cardiac Cardiac: Tachy - Respiratory Respiratory: Distress, Rhonchi, Rales, Right upper lobe, Right middle lobe, Right lower lobe, Left upper lobe, Left lower lobe - Extremities Extremities: Pedal edema bilateral Results - Vitals Vitals: Vital Signs - 24 hr 04/17/18 04/17/18 04/17/18 01:40 02:00 02:32 Temperature 37.3 C 39.0 C H Heart Rate 90 114 H Respiratory 30 H 30 H Rate Blood Pressure 148/91 H 125/66 O2 Saturation 90 L 91 L 95 Oxygen O2 Source Nasal cannula - EKG (time done) 0144 Rate: Rate (enter#) (127) Rhythm: Atrial fibrillation [place]: LAD Intervals: RBBB Compare to prior EKG: Changed from prior EKG - Labs Labs: Laboratory Tests 04/17/18 04/17/18 04/17/18 02:03 02:03 02:03 WBC RBC Hgb Hct MCV MCH MCHC RDW Plt Count MPV Neut # (Auto) Lymph # (Auto) [place] # (Auto) Eos # (Auto) Baso # (Auto) Absolute Nucleated RBC Nucleated RBC % PT 33.6 H INR 3.1 H APTT 27.2 Sodium 138 Potassium 4.0 Chloride 110 Carbon Dioxide 18 L Anion Gap 10.0 BUN 19 Creatinine 1.3 H Estimated GFR (MDRD) 52 L Glucose 146 H Lactic Acid Calcium 8.9 Phosphorus 2.5 Magnesium 1.6 L Total Bilirubin 3.5 H AST 24 ALT 12 Alkaline Phosphatase 64 Troponin I < 0.04 B-Natriuretic Peptide Total Protein 6.6 L Albumin 3.8 Globulin 2.8 Albumin/Globulin Ratio 1.4 Lipase 103 H 04/17/18 04/17/18 04/17/18 02:23 02:23 02:23 WBC 15.1 H RBC 3.72 L Hgb 11.7 L Hct 36.0 L MCV 96.9 H MCH 31.6 H MCHC 32.6 RDW 15.7 H Plt Count 230 MPV 9.6 Neut # (Auto) 14.6 H Lymph # (Auto) 0.3 L [place] # (Auto) 0.1 Eos # (Auto) 0.0 Baso # (Auto) 0.0 Absolute Nucleated RBC 0.02 Nucleated RBC % 0.2 PT INR APTT Sodium Potassium Chloride Carbon Dioxide Anion Gap BUN Creatinine Estimated GFR (MDRD) Glucose Lactic Acid 2.1 Calcium Phosphorus Magnesium Total Bilirubin AST ALT Alkaline Phosphatase Troponin I B-Natriuretic Peptide 273 H Total Protein Albumin Globulin Albumin/Globulin Ratio Lipase - Rads (name of study) chest x-ray Radiology: Final report received (mild chf, no definitive pneumonia) PD MEDICAL DECISION MAKING - ED course Complexity details: reviewed old records, reviewed results, re-evaluated patient , considered differential, d/w patient, d/w excellence consultant ED course: Patient was seen and examined at bedside. patient was placed on a monitor and was hypoxic. patient was placed on supplemental oxygen. ekg was performed and was A fib with a right bundle branch block. it was similar to previous ekgs. IV access was gained and labs were drawn. Chest x-ray was performed. Patient was found to have a leukocytosis. chest x-ray showed edema and possilbe infiltrates. patient did develop a fever. Cultures were drawn and patient was started on ceftriaxone. Hospitalist was contacted and the case was discussed with her. Patient was admitted for further evaluation and care. - Sepsis Event Vital Signs: Vital Signs - 24 hr 04/17/18 04/17/18 04/17/18 01:40 02:00 02:32 Temperature 37.3 C 39.0 C H Heart Rate 90 114 H Respiratory 30 H 30 H Rate Blood Pressure 148/91 H 125/66 O2 Saturation 90 L 91 L 95 Oxygen O2 Source Nasal cannula Departure - Departure Disposition: [facility] DC/Xfer Clinical Impression: Chronic systolic congestive heart failure, NYHA class 2, Pneumonia Condition: Stable Discharge Date/Time: 04/17/18 04:19
[2018-04-17] MEDS ORDERED: SODIUM CHLORIDE FLUSH 0.9% 10 ML SYRINGE IVP PRN (03:10)
--- NOTE | 2018-04-17 03:28 | HISTORY & PHYSICAL EXAMINATION ---
Chief Complaint - Chief Complaint Chief Complaint: Weakness, urinary frequency, urgency, and incontinence History of Present Illness - Admitted From Admitted From:: Home - History Obtained From History obtained from: The patient's , son, and emergency department physician Exam Limitations: The patient is minimally responsive at this time - History of Present Illness HPI Comment/Other: Mr. Malvin Nava is a very pleasant 87-year-old gentleman who has a recent history of frequency, urgency and incontinence which began yesterday. At about 1 AM this morning the patient's got up to go to the bathroom and found him on the floor; she called EMS who brought him into the emergency department where he was found to be feverish with a white blood cell count of 15,000, a BNP of 273, and elevated bilirubin and lipase levels. He will be admitted to medical surgical bed, placed on IV antibiotics, and his electrolytes will be corrected. History - Past Medical History Cardiovascular: reports: Congestive heart failure, Hypertension, High cholesterol, Coronary artery disease, Atrial fibrillation, Valve disorder Respiratory: reports: None Neuro: reports: Dementia Endocrine/Autoimmune: reports: HyPOthyroidism GI: reports: None : reports: Kidney stones HEENT: reports: Macular degeneration, Other Psych: reports: None Musculoskeletal: reports: Osteoarthritis Derm: reports: None MRSA Hx?: No - Past Surgical History General: reports: Colonoscopy Cardiovascular: reports: Coronary stent, Valve replacement HEENT: reports: Cataracts Derm: reports: Skin cancer surgery - Family & Social History Family History: Mother: , Father: Living arrangement: At home Living Situation: With spouse/s.o. Social History Notes: Patient grew up in [place] and moved to [place] in the [place]. He raised his 2 daughters and son on [facility]. He retired in 1973 from the [employer] service. His son lives nearby and his daughters live in [place]. He ambulates without assistive devices but the pain to his right hip has restricted his mobility over the past 1.5 years. He is unable to complete yardwork anymore. He spends the majority of his time working on his computer, writing memoirs of his life including the [place] war. He always desired to be a account underwriter. His prepares all meals. - Substance History Use: Uses substance without health or social issues: Tobacco (smokes a pipe 3-4 times per week "I mostly like the smell, sometimes I just smell it.") Abuse: Recurrent use of substance despite neg consequences: NONE Dependence: Experiences withdrawal or developed tolerances: NONE - POLST Patient has POLST: No POLST Status: DNR Meds/Allgy - Home Medications Home Medications: Ambulatory Orders Medication Instructions Recorded Confirmed Carvedilol [Coreg] 25 mg BID 05/30/17 05/30/17 Celecoxib [CeleBREX] 200 mg DAILY 05/30/17 05/30/17 Digoxin 125 mcg DAILY 05/30/17 05/30/17 Levothyroxine Sodium [Synthroid] 1 tab DAILY 05/30/17 05/30/17 Losartan Potassium [Cozaar] 100 mg DAILY 05/30/17 05/30/17 Simvastatin 20 mg DAILY 05/30/17 05/30/17 Warfarin [Coumadin] 2.5 mg PO SUMOWEFR 05/30/17 05/30/17 Warfarin [Coumadin] 5 mg TUTHSA 05/30/17 05/30/17 Carvedilol [Coreg] 25 mg PO BID tablet 05/31/17 Celecoxib [CeleBREX] 200 mg PO DAILY capsule 05/31/17 Digoxin [Lanoxin] 125 mcg PO DAILY tablet 05/31/17 Levothyroxine [Synthroid] 112 mcg PO DAILY tablet 05/31/17 Losartan [Cozaar] 100 mg PO DAILY tablet 05/31/17 Warfarin [Coumadin] 2.5 mg PO SUMOWEFR tablet 05/31/17 Warfarin [Coumadin] 5 mg PO TuThSa tablet 05/31/17 - Allergies Allergies/Adverse Reactions: Allergies Allergy/AdvReac Type Severity Reaction Status Date / Time amoxicillin trihydrate * Allergy Unknown Verified 04/17/18 01:48 [From Augmentin] potassium clavulanate * Allergy Unknown Verified 04/17/18 01:48 [From Augmentin] Review of Systems - Constitutional Constitutional: reports: Fatigue, Malaise, Weakness. denies: Fever, Chills, Night sweats - Eyes Eyes: denies: Pain, Irritation, Blurred vision, Dipolpia - Ears, Nose & Throat Ears, Nose & Throat: reports: Hearing loss. denies: Ear pain, Tinnitus, Vertigo , Nasal pain, Nosebleeds - Cardiovascular Cariovascular: denies: Irregular heart rate, Palpitations, Chest pain, Edema - Respiratory Respiratory: denies: Cough, Sputum production, Wheezing, Snoring, Hemoptysis, SOB at rest, SOB with exertion - Gastrointestinal Gastrointestinal: denies: Abdominal pain, Abdominal distention, Constipation, Diarrhea, Change in bowel habits, Rectal bleeding - Genitourinary Genitourinary: reports: Dysuria, Frequency, Urgency, Hematuria, Incontinence - Musculoskeletal Musculoskeletal: denies: Muscle pain, Back pain, Muscle aches, Stiffness - Integumentary Integumentary: denies: Rash, Pruritis, Lesions, Dryness - Neurological Neurological: reports: General weakness. denies: Focal weakness, Headache, Dizziness - Psychiatric Psychiatric: denies: Depression, Anxiety, Suicidal - Endocrine Endocrine: reports: Polyuria. denies: Polydypsia, Polyphagia - Hematologic/Lymphatic Hematologic/Lymphatic: denies: Anemia, Bruising, Petechiae, Lymphadenopathy - All Other Systems All Other Systems: reports: Reviewed and negative Exam - Vital Signs Reviewed Vital Signs: Yes Vital Signs: Vital Signs x48h Temp Pulse Resp BP Pulse Ox 04/17/18 02:32 39.0 C H 114 H 30 H 125/66 95 04/17/18 02:00 91 L 04/17/18 01:40 37.3 C 90 30 H 148/91 H 90 L - Physical Exam General Appearance: positive: No acute distress, Alert, Mild distress Eyes Bilateral: positive: Normal inspection, PERRL, EOMI, No lid inflammation, Conjunctivae nml, No scleral icterus ENT: positive: ENT inspection nml, Pharynx nml, No signs of dehydration Neck: positive: Nml inspection, Thyroid nml, No JVD, Trachea midline. negative : Thyromegaly Respiratory: positive: Chest non-tender, No respiratory distress, Breath sounds nml. negative: Wheezes, Rales, Rhonchi Cardiovascular: positive: Regular rate & rhythm, No murmur, No gallop Peripheral Pulses: positive: 1+ Abdomen: positive: Non-tender, No organomegaly, Nml bowel sounds, No distention. negative: Guarding, Rebound Back: positive: Nml inspection. negative: CVA tenderness (R), CVA tenderness (L ) Skin: positive: Color nml, No rash, Warm, Dry. negative: Cyanosis Extremities: positive: Non-tender, Full ROM, Nml appearance, No pedal edema Neurologic/Psychiatric: positive: CN's nml (2-12), Motor nml, Sensation nml, Disoriented to place, Disoriented to time Conclusion/Plan - Problem List (1) UTI (urinary tract infection) Conclusion/Plan: We are still waiting for the results of the Urinalysis, however given the patient's complaints of urinary frequency, urgency, incontinence, and hematuria it seems certain that the patient has a urinary tract infection. The chest x- ray did not show any pneumonia and we are awaiting the results of the patient's blood cultures as well. We will start the patient on Levaquin for the presumed urinary tract infection and will adjust antibiotics as culture results become available. (2) Hypertension Conclusion/Plan: We will continue the patient on his home dosing of losartan and carvedilol. Qualifiers: Hypertension type: unspecified secondary hypertension Qualified Code(s): I15.9 - Secondary hypertension, unspecified; I15 - Secondary hypertension (3) Chronic kidney disease (CKD) Conclusion/Plan: The patient's creatinine is 1.3 which is actually better than his last 2 visits. We will gently hydrate and monitor his kidney status. Qualifiers: Chronic kidney disease stage: stage 3 (moderate) Qualified Code(s): N18.3 - Chronic kidney disease, stage 3 (moderate) (4) H/O aortic valve replacement Conclusion/Plan: We will continue the patient on his Coumadin. His INR on admission was 3.1 so we will hold the Coumadin for 2 days. (5) Chronic systolic congestive heart failure, NYHA class 2 Conclusion/Plan: We will continue the patient on his home dosing of Coreg, losartan, and digoxin. We will check digoxin level. - Lab Results Lab results reviewed: Yes Fish Bones: 04/17/18 02:23 04/17/18 02:03 - Diagnostic Imaging Results Diagnostic Imaging Results: positive: Final report reviewed Diagnostic Imaging Results Comments: EXAM: CHEST RADIOGRAPHY EXAM DATE: 04/17/2018 02:21 AM. CLINICAL HISTORY: Fever, history of lung failure. COMPARISON: None. TECHNIQUE: 1 view. FINDINGS: Lungs/Pleura: Diffuse mild interstitial opacities. No large effusion. No gross pneumothorax. Mediastinum: Mild cardiomegaly. No mediastinal shift. Other: Post-median sternotomy. IMPRESSION: 1. No definite pneumonia. 2. Mild CHF. Core Measures - Anticipated LOS I expect patient to be DC'd or transferred within 96 hours.: Yes - DVT/VTE - Prophylaxis VTE/DVT Device ordered at admit?: Yes
[2018-04-17] MEDS ORDERED: D5.45NS W/20 MEQ KCL 1,000 ML IV SCH (04:00)
[2018-04-17] MEDS: ACETAMINOPHEN 325 MG TABLET PO PRN (04:42)
[2018-04-17] MEDS: MAGNESIUM OXIDE 400 MG TABLET PO SCH ×2 (04:42→05:03)
[2018-04-17] MEDS: levoFLOXacin 500 MG/100 ML 500 MG/100 ML BAG IV SCH (04:45)
[2018-04-17 05:34] LABS: HGB - HEMOGLOBIN 11.2 g/dL (14.0-18.0); MEAN CORPUSCULAR HEMOGLOBIN 31.7 pg (27.0-31.0); MEAN CORPUSCULAR HGB CONC 32.1 g/dL (32.0-36.0); MEAN CORPUSCULAR VOLUME 98.8 fL (80.0-94.0); MEAN PLATELET VOLUME 9.8 fL (7.4-11.4); RED BLOOD COUNT 3.53 10^6/uL (4.70-6.10); RED CELL DISTRIBUTION WIDTH 15.6 % (12.0-15.0); WHITE BLOOD COUNT 22.4 x10^3/uL (4.8-10.8)
[2018-04-17] MEDS: MAGNESIUM SULFATE 1 GM in SODIUM CHLORIDE 0.9% 50 ML IV SCH ×3 (06:00→08:12)
[2018-04-17 06:03] LABS: BUN - BLOOD UREA NITROGEN 20 mg/dL (6-20); CALCIUM 8.4 mg/dL (8.5-10.3); CARBON DIOXIDE - CO2 18 mmol/L (21-32); CHLORIDE 109 mmol/L (101-111); CREATININE 1.4 mg/dL (0.6-1.2); DIGOXIN 0.7 ng/mL; GFR - MDRD 48 (>89); GLUCOSE 134 mg/dL (70-100); SODIUM 137 mmol/L (135-145)
[2018-04-17] MEDS ORDERED: SODIUM CHLORIDE 0.9% 500 ML IV ONE (08:48)
[2018-04-17] MEDS ORDERED: NON FORMULARY MED (Simvastatin [Simvastatin] 20 MG) PO SCH (09:00)
[2018-04-17] MEDS ORDERED: CARVEDILOL 12.5 MG TABLET PO SCH (09:00)
[2018-04-17] MEDS ORDERED: LOSARTAN 50 MG TABLET PO SCH (09:00)
[2018-04-17] MEDS: LEVOTHYROXINE 112 MCG TABLET PO SCH (09:06)
[2018-04-17] MEDS: DIGOXIN 125 MCG TABLET PO SCH (09:06)
[2018-04-17] MEDS: POLYETHYLENE GLYCOL 3350 17 GM PACKET PO SCH (09:06)
[2018-04-17] MEDS: CELECOXIB 100 MG CAPSULE PO SCH (09:06)
[2018-04-17] MEDS: SODIUM CHLORIDE FLUSH 0.9% 10 ML SYRINGE IVP SCH ×2 (09:07→17:23)
[2018-04-17 10:01] LABS: BILIRUBIN,URINE NEGATIVE (NEGATIVE); GLUCOSE, URINE (UA) NEGATIVE (NEGATIVE); KETONES,URINE (UA) NEGATIVE (NEGATIVE); LEUKOCYTE ESTERASE, URINE TRACE (NEGATIVE); NITRITE,URINE POSITIVE (NEGATIVE); OCCULT BLOOD,URINE LARGE (NEGATIVE); PROTEIN,URINE 30 mg/dL (NEGATIVE); UROBILINOGEN,URINE 0.2 (NORMAL) E.U./dL (NORMAL)
[2018-04-17 10:02] LABS: CLARITY,URINE CLEAR (CLEAR)
[2018-04-17 10:17] LABS: BACTERIA,URINE Moderate /HPF (None Seen); SQUAMOUS EPITHELIAL CELL,UR RARE Squamous (<= Few)
[2018-04-17] MEDS: SODIUM CHLORIDE 0.9% 1,000 ML IV SCH (12:14)
--- NOTE | 2018-04-17 12:21 | PROVIDER PROGRESS NOTE ---
Hospitalist Cross-cover Note - Cross-Cover Note Cross-Cover Note: The patient was only responding to painful stimuli this am (sternal rub). BP 80-90 systolic even after a 500 cc saline fluid bolus. Skin warm and mildly diaphoretc. Lungs clear anteriorly. Cardiac sounds do not have crisp valve click sounds. Imp/Plan: Shock. Transfer patient to the ICU. Status: critical. Gentle hydration since he could be dehydrated due to fever. Follow I's and Os and daily weight. VS q1h and follow MAP, as he may need pressors. Check EKG and troponins to R/O MD. Check Echo to R/O cardiogenic shock and evaluate abnormal prosthetic valve sounds. Check lactic acid level for possible septic shock. Blood culture, if not yet done. Straight cath for urinalysis and culture and prn str. cath. Hold Carvedilol and Lisinopril.
[2018-04-17] MEDS: POTASSIUM CHLOR 10 MEQ/100 ML 10 MEQ/100 ML BAG IV SCH ×3 (15:53→18:17)
[2018-04-17] MEDS: ATORVASTATIN 10 MG TABLET PO SCH (21:01)
[2018-04-18] MEDS: SODIUM CHLORIDE 0.9% 1,000 ML IV SCH (00:16)
[2018-04-18] MEDS: SODIUM CHLORIDE FLUSH 0.9% 10 ML SYRINGE IVP SCH ×3 (01:19→18:00)
[2018-04-18] MEDS: levoFLOXacin 500 MG/100 ML 500 MG/100 ML BAG IV SCH (05:03)
[2018-04-18 05:15] LABS: HGB - HEMOGLOBIN 10.5 g/dL (14.0-18.0); MEAN CORPUSCULAR HEMOGLOBIN 32.2 pg (27.0-31.0); MEAN CORPUSCULAR HGB CONC 32.9 g/dL (32.0-36.0); MEAN CORPUSCULAR VOLUME 97.8 fL (80.0-94.0); MEAN PLATELET VOLUME 9.6 fL (7.4-11.4); RED BLOOD COUNT 3.26 10^6/uL (4.70-6.10); RED CELL DISTRIBUTION WIDTH 15.6 % (12.0-15.0); WHITE BLOOD COUNT 12.5 x10^3/uL (4.8-10.8)
[2018-04-18] MEDS: ACETAMINOPHEN 325 MG TABLET PO PRN ×2 (05:16→21:10)
[2018-04-18 05:24] LABS: CALCIUM 7.9 mg/dL (8.5-10.3); CREATININE 1.4 mg/dL (0.6-1.2); MAGNESIUM 2.1 mg/dL (1.7-2.8)
[2018-04-18] MEDS ORDERED: SODIUM CHLORIDE 0.9% 1,000 ML IV SCH (08:15)
[2018-04-18] MEDS: DIGOXIN 125 MCG TABLET PO SCH (08:33)
[2018-04-18] MEDS: CELECOXIB 100 MG CAPSULE PO SCH (08:34)
[2018-04-18] MEDS: POLYETHYLENE GLYCOL 3350 17 GM PACKET PO SCH (08:35)
[2018-04-18] MEDS: LEVOTHYROXINE 112 MCG TABLET PO SCH (08:35)
[2018-04-18 09:17] LABS: INR 2.6 (0.8-1.2); PT - PROTHROMBIN TIME 27.9 secs (9.9-12.6)
[2018-04-18] MEDS: CARVEDILOL 3.125 MG TABLET PO SCH ×2 (10:20→21:10)
[2018-04-18] MEDS ORDERED: OXYMETAZOLINE NASAL SPRAY NAS PRN (10:42)
--- NOTE | 2018-04-18 13:14 | PROVIDER PROGRESS NOTE ---
Assessment/Plan - Problem List (1) Sepsis Assessment/Plan: Improved BP. Will stop fluids to prevent CHF. No bacteremia, but source is probably urine. Continue empiric iv antibiotics. Await culture results. (2) UTI (urinary tract infection) Assessment/Plan: Await cultures. Continue empiric antibiotics. No imaging was done of abdomen and pelvis yesterday, since he was too critical with shock, to leave the ICU. Will plan imaging by CT, not MRI since he has a mechanical valve. (3) S/P AVR Assessment/Plan: Echo showed stable AVR function. Target INR is 2.5-3.5 with a mechanical valve. Will monitor daily INRs especially while on antibiotics which may affect the INR (4) Chronic atrial fibrillation Assessment/Plan: HR no longer akanksha (was on maximum Coreg dose). Will restart Coreg at 6.25 mg po bid. Continue Coumadin and target INR with a mechanical valve is 2.5-3.5. Monitor daily INRs. (5) Acute non-ST elevation myocardial infarction (NSTEMI) Assessment/Plan: Pt ruled in for an CT, by EKG changes and rise an fall of troponin criteria. His Echo shows a slightly depressed LVEF of 40-45%, which is similar to his last LVEF. It is likely that he had hypoperfusion of coronaries from shock. Continue with medical management (Carvedilol, resume STACY when BP better). Will watch another day in ICU. (6) Hypovolemic shock Assessment/Plan: Resolved with gentle rehydration. - Current Meds Current Meds: Current Medications Generic Name Dose Route Start Last Admin Trade Name Freq PRN Reason Stop Dose Admin Acetaminophen 650 mg 04/17/18 03:20 04/18/18 05:16 Tylenol PO 650 mg Q4HR PRN Administration Pain 1 to 4 Atorvastatin Calcium 10 mg 04/17/18 21:00 04/17/18 21:01 Lipitor PO 10 mg QPM ANA Administration Carvedilol 6.25 mg 04/18/18 09:00 04/18/18 10:20 Coreg PO 6.25 mg BID ANA Administration Celecoxib 200 mg 04/17/18 09:00 04/18/18 08:34 Celebrex PO 200 mg DAILY ANA Administration Digoxin 125 mcg 04/17/18 09:00 04/18/18 08:33 Lanoxin PO 125 mcg DAILY ANA Administration Levofloxacin 500 mg in 100 mls @ 100 mls/hr 04/17/18 05:00 04/18/18 06:03 Levaquin 500 Mg/100 Ml IV Infused Q24H ANA Infusion Polyethylene Glycol 17 gm 04/17/18 09:00 04/18/18 08:35 Miralax PO 17 gm DAILY NAA Administration Sodium Chloride 10 ml 04/17/18 03:10 04/17/18 04:44 Normal Saline Flush 0.9% IVP 10 ml PRN PRN Administration NEEDED PER PROVIDER ORDERS Sodium Chloride 10 ml 04/17/18 09:00 04/18/18 08:35 Normal Saline Flush 0.9% IVP 10 ml 0100,0900,1700 ANA Administration - Lab Result Fish Bone Diagrams: 04/19/18 04:30 04/19/18 04:30 - EKG Results EKG Interpreted Independently: Yes EKG Comparison: Changed from prior EKG EKG Findings: afib, rate 78, RBBB, Lateral T wave inversions have resolved since yesterday. - Additional Planning My Orders: My Active Orders 04/17/18 12:40 Echo Transthoracic Complete [ECHO] Routine 04/17/18 12:50 Daily Weight [RC] 59904/18/18 Evaluate and Treat OT [OT] Routine 04/18/18 08:15 Chest 1 View X-Ray [XR] Routine 04/18/18 09:00 Carvedilol [Coreg] 6.25 mg PO BID 04/18/18 10:42 Oxymetazoline [Afrin] 2 sprays DOUG BID PRN 04/18/18 11:00 guaiFENesin [Mucinex] 600 mg PO BID 04/18/18 21:00 Warfarin [Coumadin] 5 mg PO TUTHSA@209904/18/18 Lunch DIET [Cardiac Diet] [DIET] 04/19/18 05:00 MAGNESIUM [CHEM] DAILYLAB PT WITH INR [COAG] DAILYLAB 04/19/18 21:00 Warfarin [Coumadin] 2.5 mg PO SUMOWEFR@209904/20/18 05:00 MAGNESIUM [CHEM] DAILYLAB PT WITH INR [COAG] DAILYLAB 04/21/18 05:00 PT WITH INR [COAG] DAILYLAB 04/22/18 05:00 PT WITH INR [COAG] DAILYLAB 04/23/18 05:00 PT WITH INR [COAG] DAILYLAB Subjective - Subjective Patient Reports: Feeling Better, Other (Sitting up to eat lunch) Nursing Reports: No Complaints Objective Vital Signs: Vital Signs - 24 hr 04/17/18 04/17/18 04/17/18 14:00 15:00 16:00 Temperature 37.1 C Heart Rate [ Activity] Heart Rate [ 58 L 65 66 Brachial] Heart Rate [ Standing] Respiratory 16 16 14 Rate Blood Pressure [Activity] Blood Pressure 99/61 89/53 L 102/62 [Left Brachial artery] Blood Pressure [Sitting] Blood Pressure [Standing] Blood Pressure [Supine] O2 Saturation 98 98 98 04/17/18 04/17/18 04/17/18 17:00 18:00 19:00 Temperature Heart Rate [ Activity] Heart Rate [ 66 76 72 Brachial] Heart Rate [ Standing] Respiratory 20 22 18 Rate Blood Pressure [Activity] Blood Pressure 99/59 L 100/57 L 112/70 [Left Brachial artery] Blood Pressure [Sitting] Blood Pressure [Standing] Blood Pressure [Supine] O2 Saturation 99 97 98 04/17/18 04/17/18 04/17/18 20:00 21:00 22:00 Temperature 37.3 C 38.4 C H Heart Rate [ Activity] Heart Rate [ 75 74 74 Brachial] Heart Rate [ Standing] Respiratory 23 24 23 Rate Blood Pressure [Activity] Blood Pressure 102/79 112/65 126/71 [Left Brachial artery] Blood Pressure [Sitting] Blood Pressure [Standing] Blood Pressure [Supine] O2 Saturation 99 98 96 04/17/18 04/18/18 04/18/18 23:00 00:00 01:00 Temperature 38 C H 38.1 C H 37.4 C Heart Rate [ Activity] Heart Rate [ 81 87 90 Brachial] Heart Rate [ Standing] Respiratory 26 H 26 H 23 Rate Blood Pressure [Activity] Blood Pressure 112/65 133/90 H 121/60 [Left Brachial artery] Blood Pressure [Sitting] Blood Pressure [Standing] Blood Pressure [Supine] O2 Saturation 97 95 95 04/18/18 04/18/18 04/18/18 02:00 03:00 04:00 Temperature 38 C H Heart Rate [ Activity] Heart Rate [ 86 97 97 Brachial] Heart Rate [ Standing] Respiratory 23 28 H 26 H Rate Blood Pressure [Activity] Blood Pressure 135/80 H 118/77 132/88 H [Left Brachial artery] Blood Pressure [Sitting] Blood Pressure [Standing] Blood Pressure [Supine] O2 Saturation 95 94 95 04/18/18 04/18/18 04/18/18 05:00 06:00 07:00 Temperature 38.9 C H 37.9 C H 37.5 C Heart Rate [ Activity] Heart Rate [ 91 95 85 Brachial] Heart Rate [ Standing] Respiratory 26 H 24 20 Rate Blood Pressure [Activity] Blood Pressure 139/77 H 115/81 H 111/65 [Left Brachial artery] Blood Pressure [Sitting] Blood Pressure [Standing] Blood Pressure [Supine] O2 Saturation 95 94 96 04/18/18 04/18/18 04/18/18 08:00 09:00 10:00 Temperature 37.6 C H Heart Rate [ Activity] Heart Rate [ 89 87 88 Brachial] Heart Rate [ Standing] Respiratory 24 23 24 Rate Blood Pressure [Activity] Blood Pressure 110/76 119/71 118/86 H [Left Brachial artery] Blood Pressure [Sitting] Blood Pressure [Standing] Blood Pressure [Supine] O2 Saturation 97 96 97 04/18/18 04/18/18 04/18/18 10:40 10:50 10:55 Temperature Heart Rate [ 80 Activity] Heart Rate [ 82 80 Brachial] Heart Rate [ 85 Standing] Respiratory 22 22 Rate Blood Pressure 103/76 [Activity] Blood Pressure 109/92 H 116/94 H [Left Brachial artery] Blood Pressure 109/92 H [Sitting] Blood Pressure 116/94 H [Standing] Blood Pressure 118/68 [Supine] O2 Saturation 95 95 04/18/18 04/18/18 11:00 12:00 Temperature 37.1 C Heart Rate [ Activity] Heart Rate [ 77 73 Brachial] Heart Rate [ Standing] Respiratory 21 18 Rate Blood Pressure [Activity] Blood Pressure 103/76 114/68 [Left Brachial artery] Blood Pressure [Sitting] Blood Pressure [Standing] Blood Pressure [Supine] O2 Saturation 96 98 Oxygen O2 Source Nasal cannula I&O (Last 24 Hrs): Intake and Output Totals x24h 04/16/18 04/17/18 04/18/18 23:59 23:59 23:59 Intake Total 3232.619 1789.723 Output Total 650 Balance 2582.619 1789.723 General: Alert, Oriented x3 HEENT: Mucous membr. moist/pink Neck: Supple, No JVD Neuro: Non Focal Cardiovascular: No murmurs, Other (Soft valve clicks.) Respiratory: No respiratory distress, Breath sounds nml Abdomen: Soft Extremities: No edema - Results Results: Laboratory Results WBC 12.5 x10^3/uL (4.8-10.8) H 04/18/18 05:06 RBC 3.26 10^6/uL (4.70-6.10) L 04/18/18 05:06 Hgb 10.5 g/dL (14.0-18.0) L 04/18/18 05:06 Hct 31.9 % (42.0-52.0) L 04/18/18 05:06 MCV 97.8 fL (80.0-94.0) H 04/18/18 05:06 MCH 32.2 pg (27.0-31.0) H 04/18/18 05:06 MCHC 32.9 g/dL (32.0-36.0) 04/18/18 05:06 RDW 15.6 % (12.0-15.0) H 04/18/18 05:06 Plt Count 184 10^3/uL (130-450) 04/18/18 05:06 MPV 9.6 fL (7.4-11.4) 04/18/18 05:06 Neut # (Auto) 14.6 10^3/uL (1.5-6.6) H 04/17/18 02:23 Lymph # (Auto) 0.3 10^3/uL (1.5-3.5) L 04/17/18 02:23 [place] # (Auto) 0.1 10^3/uL (0.0-1.0) 04/17/18 02:23 Eos # (Auto) 0.0 10^3/uL (0.0-0.7) 04/17/18 02:23 Baso # (Auto) 0.0 10^3/uL (0.0-0.1) 04/17/18 02:23 Absolute Nucleated RBC 0.02 x10^3/uL 04/17/18 02:23 Nucleated RBC % 0.2 /100WBC 04/17/18 02:23 PT 27.9 secs (9.9-12.6) H 04/18/18 08:55 INR 2.6 (0.8-1.2) H 04/18/18 08:55 APTT 27.2 secs (24.9-33.3) 04/17/18 02:03 Sodium 134 mmol/L (135-145) L 04/18/18 05:06 Potassium 4.0 mmol/L (3.5-5.0) 04/18/18 05:06 Chloride 110 mmol/L (101-111) 04/18/18 05:06 Carbon Dioxide 19 mmol/L (21-32) L 04/18/18 05:06 Anion Gap 5.0 (6-13) L 04/18/18 05:06 BUN 22 mg/dL (6-20) H 04/18/18 05:06 Creatinine 1.4 mg/dL (0.6-1.2) H 04/18/18 05:06 Estimated GFR (MDRD) 48 (>89) L 04/18/18 05:06 Glucose 105 mg/dL (70-100) H 04/18/18 05:06 Lactic Acid 1.3 mmol/L (0.5-2.2) 04/17/18 09:00 Calcium 7.9 mg/dL (8.5-10.3) L 04/18/18 05:06 Phosphorus 2.5 mg/dL (2.5-4.6) 04/17/18 02:03 Magnesium 2.1 mg/dL (1.7-2.8) 04/18/18 05:06 Total Bilirubin 3.5 mg/dL (0.2-1.0) H 04/17/18 02:03 AST 24 IU/L (10-42) 04/17/18 02:03 ALT 12 IU/L (10-60) 04/17/18 02:03 Alkaline Phosphatase 64 IU/L (42-121) 04/17/18 02:03 Troponin I 0.12 ng/mL (<0.49) 04/17/18 18:04 B-Natriuretic Peptide 273 pg/mL (5-100) H 04/17/18 02:23 Total Protein 6.6 g/dL (6.7-8.2) L 04/17/18 02:03 Albumin 3.8 g/dL (3.2-5.5) 04/17/18 02:03 Globulin 2.8 g/dL (2.1-4.2) 04/17/18 02:03 Albumin/Globulin Ratio 1.4 (1.0-2.2) 04/17/18 02:03 Lipase 103 U/L (22-51) H 04/17/18 02:03 TSH 0.50 uIU/mL (0.34-5.60) 04/17/18 05:08 Free T4 0.76 ng/dL (0.58-1.64) 04/17/18 05:08 Urine Color YELLOW 04/17/18 09:57 Urine Clarity CLEAR (CLEAR) 04/17/18 09:57 Urine pH 5.0 PH (5.0-7.5) 04/17/18 09:57 Ur Specific [place] 1.020 (1.002-1.030) 04/17/18 09:57 Urine Protein 30 mg/dL (NEGATIVE) H 04/17/18 09:57 Urine Glucose (UA) NEGATIVE mg/dL (NEGATIVE) 04/17/18 09:57 Urine Ketones NEGATIVE mg/dL (NEGATIVE) 04/17/18 09:57 Urine Occult Blood LARGE (NEGATIVE) H 04/17/18 09:57 Urine Nitrite POSITIVE (NEGATIVE) H 04/17/18 09:57 Urine Bilirubin NEGATIVE (NEGATIVE) 04/17/18 09:57 Urine Urobilinogen 0.2 (NORMAL) E.U./dL (NORMAL) 04/17/18 09:57 Ur Leukocyte Esterase TRACE (NEGATIVE) H 04/17/18 09:57 Urine RBC 11-25 /HPF (0-5) H 04/17/18 09:57 Urine WBC 4-5 /HPF (0-3) 04/17/18 09:57 Ur Squamous Epith Cells RARE Squamous (<= Few) 04/17/18 09:57 Urine Bacteria Moderate /HPF (None Seen) H 04/17/18 09:57 Ur Microscopic Review INDICATED 04/17/18 09:57 Urine Culture Comments INDICATED 04/17/18 09:57 Last Dose Date UNK 04/17/18 05:08 Last Dose Time UNK 04/17/18 05:08 Digoxin 0.7 ng/mL 04/17/18 05:08 ABX Reporting Has patient been on IV antibiotics over the past 48 hours?: Yes
[2018-04-18] MEDS: guaiFENesin 600 MG TABLET PO SCH ×2 (13:17→21:10)
[2018-04-18] MEDS: CARBOXYMETHYLCELLULOSE OPHTH DROPS EACHEYE PRN ×2 (14:18→21:11)
--- NOTE | 2018-04-18 14:24 | XRAY Report ---
Procedure Date: 04/18/2018 Accession Number: [id number] / [id number] Procedure: XR - Chest 1 View X-Ray CPT Code: 44294 FULL RESULT: EXAM: Chest 1 View X-Ray DATE: 04/18/2018 8:46 AM CLINICAL HISTORY: F/U CHF vs pneumonia COMPARISON: 04/17/2018 TECHNIQUE: Single view of the chest. FINDINGS: Lungs/Pleura: No focal opacities evident. No pneumothorax or pleural effusion. Mediastinum: Status post sternotomy with changes of CABG.. Other: No acute findings or significant change compared to the preceding day IMPRESSION: Clear lungs. Mild cardiac enlargement. RADIA
[2018-04-18] MEDS ORDERED: WARFARIN 5 MG TABLET PO SCH (21:00)
[2018-04-18] MEDS: ATORVASTATIN 10 MG TABLET PO SCH (21:11)
[2018-04-19] MEDS: SODIUM CHLORIDE FLUSH 0.9% 10 ML SYRINGE IVP SCH ×3 (01:15→17:21)
[2018-04-19] MEDS: levoFLOXacin 500 MG/100 ML 500 MG/100 ML BAG IV SCH (05:18)
[2018-04-19 05:39] LABS: HGB - HEMOGLOBIN 10.7 g/dL (14.0-18.0); MEAN CORPUSCULAR HEMOGLOBIN 31.7 pg (27.0-31.0); MEAN CORPUSCULAR HGB CONC 32.9 g/dL (32.0-36.0); MEAN CORPUSCULAR VOLUME 96.5 fL (80.0-94.0); MEAN PLATELET VOLUME 10.2 fL (7.4-11.4); RED BLOOD COUNT 3.37 10^6/uL (4.70-6.10); RED CELL DISTRIBUTION WIDTH 15.1 % (12.0-15.0); WHITE BLOOD COUNT 11.8 x10^3/uL (4.8-10.8)
[2018-04-19 05:40] LABS: INR 2.4 (0.8-1.2); PT - PROTHROMBIN TIME 26.1 secs (9.9-12.6)
[2018-04-19 05:44] LABS: CALCIUM 8.5 mg/dL (8.5-10.3); CREATININE 1.1 mg/dL (0.6-1.2); MAGNESIUM 2.1 mg/dL (1.7-2.8)
[2018-04-19] MEDS: LEVOTHYROXINE 112 MCG TABLET PO SCH (06:23)
[2018-04-19] MEDS: CARVEDILOL 3.125 MG TABLET PO SCH ×2 (08:35→20:38)
[2018-04-19] MEDS: CELECOXIB 100 MG CAPSULE PO SCH (08:35)
[2018-04-19] MEDS: guaiFENesin 600 MG TABLET PO SCH ×2 (08:36→20:38)
[2018-04-19] MEDS: levoFLOXacin 250 MG TABLET PO SCH (08:36)
[2018-04-19] MEDS: DIGOXIN 125 MCG TABLET PO SCH (08:36)
[2018-04-19] MEDS: POLYETHYLENE GLYCOL 3350 17 GM PACKET PO SCH (08:36)
--- NOTE | 2018-04-19 15:26 | PROVIDER PROGRESS NOTE ---
Assessment/Plan - Problem List (1) Sepsis Assessment/Plan: Resolved IVFs stopped No bacteremia, but source is likely urine given symptoms. Cultures negative Switch from IV to PO levaquin (2) UTI (urinary tract infection) Assessment/Plan: Cultures negative Change abx to PO levaquin Improving Weak but appears to be doing well with PT and will be able to return home with support (3) S/P AVR Assessment/Plan: Echo showed stable AVR function. Target INR is 2.5-3.5 with a mechanical valve. Will monitor daily INRs especially while on antibiotics which may affect the INR INR is 2.4 (4) Chronic atrial fibrillation Assessment/Plan: HR no longer akanksha (was on maximum Coreg dose). Started on Coreg at 6.25 mg po bid. Continue Coumadin and target INR with a mechanical valve is 2.5-3.5. Monitor daily INRs. (5) Acute non-ST elevation myocardial infarction (NSTEMI) Assessment/Plan: Pt ruled in for an OK, by EKG changes and rise an fall of troponin criteria. His Echo shows a slightly depressed LVEF of 40-45%, which is similar to his last LVEF. It is likely that he had hypoperfusion of coronaries from shock. Continue with medical management (Carvedilol, resume STACY when BP better). Switch to med/surg status today and likely home tomorrow with medical management no need for angio (6) Hypovolemic shock Assessment/Plan: Resolved with gentle rehydration. - Current Meds Current Meds: Current Medications Generic Name Dose Route Start Last Admin Trade Name Freq PRN Reason Stop Dose Admin Acetaminophen 650 mg 04/17/18 03:20 04/18/18 21:10 Tylenol PO 650 mg Q4HR PRN Administration Pain 1 to 4 Atorvastatin Calcium 10 mg 04/17/18 21:00 04/18/18 21:11 Lipitor PO 10 mg QPM ANA Administration Carboxymethylcellulose 1 drops 04/18/18 13:55 04/18/18 21:11 Refresh 1% Ophth Drops EACHEYE 1 each Q4HR PRN Administration Dry Eye Carvedilol 6.25 mg 04/18/18 09:00 04/19/18 08:35 Coreg PO 6.25 mg BID ANA Administration Celecoxib 200 mg 04/17/18 09:00 04/19/18 08:35 Celebrex PO 200 mg DAILY ANA Administration Digoxin 125 mcg 04/17/18 09:00 04/19/18 08:36 Lanoxin PO 125 mcg DAILY ANA Administration Guaifenesin 600 mg 04/18/18 11:00 04/19/18 08:36 Mucinex PO 600 mg BID ANA Administration Levofloxacin 750 mg 04/19/18 09:00 04/19/18 08:36 Levaquin PO 750 mg DAILY ANA Administration Levothyroxine Sodium 112 mcg 04/18/18 12:36 04/19/18 06:23 Synthroid PO 112 mcg 0700 ANA Administration Polyethylene Glycol 17 gm 04/17/18 09:00 04/19/18 08:36 Miralax PO Not Given DAILY ANA Sodium Chloride 10 ml 04/17/18 03:10 04/17/18 04:44 Normal Saline Flush 0.9% IVP 10 ml PRN PRN Administration NEEDED PER PROVIDER ORDERS Sodium Chloride 10 ml 04/17/18 09:00 04/19/18 08:37 Normal Saline Flush 0.9% IVP 10 ml 0100,0900,1700 ANA Administration Warfarin Sodium 5 mg 04/18/18 21:00 04/18/18 21:19 Coumadin PO 5 mg TUTHSA@2100 ANA Administration - Lab Result Lab results reviewed: Yes Fish Bone Diagrams: 04/19/18 04:30 04/19/18 04:30 - EKG Results EKG Interpreted Independently: Yes - Diagnostic Imaging Results Diagnostic Imaging Results: Final report reviewed - Additional Planning Condition/Complexity: Guarded My Orders: My Active Orders 04/19/18 09:00 levoFLOXacin [Levaquin] 750 mg PO DAILY Consult/Specialty: PT Plan Discussed with:: Patient Time Spent: 31-60 minutes Subjective - Subjective Patient Reports: Feeling Better, Resting Comfortably, Other (Poor memory, very pleasant) Nursing Reports: No Complaints Objective Vital Signs: Vital Signs - 24 hr 04/18/18 04/18/18 04/18/18 16:00 17:00 18:00 Temperature 37.6 C H Heart Rate [ Activity] Heart Rate [ 79 74 72 Brachial] Heart Rate [ Standing] Respiratory 22 20 23 Rate Blood Pressure [Activity] Blood Pressure 115/68 133/96 H 122/93 H [Left Brachial artery] Blood Pressure [Sitting] Blood Pressure [Standing] Blood Pressure [Supine] O2 Saturation 98 97 98 04/18/18 04/18/18 04/18/18 19:00 20:00 21:00 Temperature 36.8 C Heart Rate [ Activity] Heart Rate [ 82 74 81 Brachial] Heart Rate [ Standing] Respiratory 26 H 20 23 Rate Blood Pressure [Activity] Blood Pressure 124/83 H 128/94 H 111/64 [Left Brachial artery] Blood Pressure [Sitting] Blood Pressure [Standing] Blood Pressure [Supine] O2 Saturation 97 97 96 04/18/18 04/18/18 04/19/18 22:00 23:00 00:00 Temperature 36.6 C Heart Rate [ Activity] Heart Rate [ 79 72 78 Brachial] Heart Rate [ Standing] Respiratory 22 24 20 Rate Blood Pressure [Activity] Blood Pressure 154/88 H 155/89 H 138/83 H [Left Brachial artery] Blood Pressure [Sitting] Blood Pressure [Standing] Blood Pressure [Supine] O2 Saturation 95 95 95 04/19/18 04/19/18 04/19/18 01:00 02:00 03:00 Temperature 37.1 C Heart Rate [ Activity] Heart Rate [ 83 96 90 Brachial] Heart Rate [ Standing] Respiratory 22 24 26 H Rate Blood Pressure [Activity] Blood Pressure 153/98 H 142/90 H 121/66 [Left Brachial artery] Blood Pressure [Sitting] Blood Pressure [Standing] Blood Pressure [Supine] O2 Saturation 95 95 94 04/19/18 04/19/18 04/19/18 04:00 05:00 06:00 Temperature 37.2 C Heart Rate [ Activity] Heart Rate [ 95 93 103 H Brachial] Heart Rate [ Standing] Respiratory 26 H 25 H 21 Rate Blood Pressure [Activity] Blood Pressure 118/63 122/69 121/89 H [Left Brachial artery] Blood Pressure [Sitting] Blood Pressure [Standing] Blood Pressure [Supine] O2 Saturation 93 95 93 04/19/18 04/19/18 04/19/18 07:00 08:00 12:38 Temperature 36.9 C Heart Rate [ 80 Activity] Heart Rate [ 105 H 103 H Brachial] Heart Rate [ 85 Standing] Respiratory 27 H 22 Rate Blood Pressure 103/76 [Activity] Blood Pressure 90/78 120/80 [Left Brachial artery] Blood Pressure 109/92 H [Sitting] Blood Pressure 116/94 H [Standing] Blood Pressure 118/68 [Supine] O2 Saturation 93 96 04/19/18 13:00 Temperature 36.5 C Heart Rate [ Activity] Heart Rate [ 88 Brachial] Heart Rate [ Standing] Respiratory 16 Rate Blood Pressure [Activity] Blood Pressure 124/80 [Left Brachial artery] Blood Pressure [Sitting] Blood Pressure [Standing] Blood Pressure [Supine] O2 Saturation 95 Oxygen O2 Source Room air I&O (Last 24 Hrs): Intake and Output Totals x24h 04/17/18 04/18/18 04/19/18 23:59 23:59 23:59 Intake Total 3232.619 2704.781 400 Output Total 650 250 Balance 2582.619 2454.781 400 General: Alert, Cooperative, No acute distress, Other (Dementia, A&Ox2) HEENT: Atraumatic, PERRLA, EOMI, Mucous membr. moist/pink Neck: Supple, No JVD, No thyromegaly, +2 carotid pulse wo bruit Lymphatic: no adenopathy Neuro: Alert, Non Focal, CN 2-12 Grossly Intact, Other (A&Ox2) Cardiovascular: Regular rate, Normal S1, Normal S2, No murmurs Respiratory: Chest non-tender, No respiratory distress, Breath sounds nml Abdomen: Normal bowel sounds, Soft, No tenderness, No hepatospenomegaly Extremities: No clubbing, No cyanosis, No edema, Normal pulses Skin: No rashes, No breakdown - Results Results: Laboratory Results WBC 11.8 x10^3/uL (4.8-10.8) H 04/19/18 04:30 RBC 3.37 10^6/uL (4.70-6.10) L 04/19/18 04:30 Hgb 10.7 g/dL (14.0-18.0) L 04/19/18 04:30 Hct 32.5 % (42.0-52.0) L 04/19/18 04:30 MCV 96.5 fL (80.0-94.0) H 04/19/18 04:30 MCH 31.7 pg (27.0-31.0) H 04/19/18 04:30 MCHC 32.9 g/dL (32.0-36.0) 04/19/18 04:30 RDW 15.1 % (12.0-15.0) H 04/19/18 04:30 Plt Count 204 10^3/uL (130-450) 04/19/18 04:30 MPV 10.2 fL (7.4-11.4) 04/19/18 04:30 Neut # (Auto) 14.6 10^3/uL (1.5-6.6) H 04/17/18 02:23 Lymph # (Auto) 0.3 10^3/uL (1.5-3.5) L 04/17/18 02:23 [place] # (Auto) 0.1 10^3/uL (0.0-1.0) 04/17/18 02:23 Eos # (Auto) 0.0 10^3/uL (0.0-0.7) 04/17/18 02:23 Baso # (Auto) 0.0 10^3/uL (0.0-0.1) 04/17/18 02:23 Absolute Nucleated RBC 0.02 x10^3/uL 04/17/18 02:23 Nucleated RBC % 0.2 /100WBC 04/17/18 02:23 PT 26.1 secs (9.9-12.6) H 04/19/18 04:30 INR 2.4 (0.8-1.2) H 04/19/18 04:30 APTT 27.2 secs (24.9-33.3) 04/17/18 02:03 Sodium 138 mmol/L (135-145) 04/19/18 04:30 Potassium 3.9 mmol/L (3.5-5.0) 04/19/18 04:30 Chloride 109 mmol/L (101-111) 04/19/18 04:30 Carbon Dioxide 19 mmol/L (21-32) L 04/19/18 04:30 Anion Gap 10.0 (6-13) 04/19/18 04:30 BUN 21 mg/dL (6-20) H 04/19/18 04:30 Creatinine 1.1 mg/dL (0.6-1.2) 04/19/18 04:30 Estimated GFR (MDRD) 64 (>89) L 04/19/18 04:30 Glucose 98 mg/dL (70-100) 04/19/18 04:30 Lactic Acid 1.3 mmol/L (0.5-2.2) 04/17/18 09:00 Calcium 8.5 mg/dL (8.5-10.3) 04/19/18 04:30 Phosphorus 2.5 mg/dL (2.5-4.6) 04/17/18 02:03 Magnesium 2.1 mg/dL (1.7-2.8) 04/19/18 04:30 Total Bilirubin 3.5 mg/dL (0.2-1.0) H 04/17/18 02:03 AST 24 IU/L (10-42) 04/17/18 02:03 ALT 12 IU/L (10-60) 04/17/18 02:03 Alkaline Phosphatase 64 IU/L (42-121) 04/17/18 02:03 Troponin I 0.12 ng/mL (<0.49) 04/17/18 18:04 B-Natriuretic Peptide 273 pg/mL (5-100) H 04/17/18 02:23 Total Protein 6.6 g/dL (6.7-8.2) L 04/17/18 02:03 Albumin 3.8 g/dL (3.2-5.5) 04/17/18 02:03 Globulin 2.8 g/dL (2.1-4.2) 04/17/18 02:03 Albumin/Globulin Ratio 1.4 (1.0-2.2) 04/17/18 02:03 Lipase 103 U/L (22-51) H 04/17/18 02:03 TSH 0.50 uIU/mL (0.34-5.60) 04/17/18 05:08 Free T4 0.76 ng/dL (0.58-1.64) 04/17/18 05:08 Urine Color YELLOW 04/17/18 09:57 Urine Clarity CLEAR (CLEAR) 04/17/18 09:57 Urine pH 5.0 PH (5.0-7.5) 04/17/18 09:57 Ur Specific [place] 1.020 (1.002-1.030) 04/17/18 09:57 Urine Protein 30 mg/dL (NEGATIVE) H 04/17/18 09:57 Urine Glucose (UA) NEGATIVE mg/dL (NEGATIVE) 04/17/18 09:57 Urine Ketones NEGATIVE mg/dL (NEGATIVE) 04/17/18 09:57 Urine Occult Blood LARGE (NEGATIVE) H 04/17/18 09:57 Urine Nitrite POSITIVE (NEGATIVE) H 04/17/18 09:57 Urine Bilirubin NEGATIVE (NEGATIVE) 04/17/18 09:57 Urine Urobilinogen 0.2 (NORMAL) E.U./dL (NORMAL) 04/17/18 09:57 Ur Leukocyte Esterase TRACE (NEGATIVE) H 04/17/18 09:57 Urine RBC 11-25 /HPF (0-5) H 04/17/18 09:57 Urine WBC 4-5 /HPF (0-3) 04/17/18 09:57 Ur Squamous Epith Cells RARE Squamous (<= Few) 04/17/18 09:57 Urine Bacteria Moderate /HPF (None Seen) H 04/17/18 09:57 Ur Microscopic Review INDICATED 04/17/18 09:57 Urine Culture Comments INDICATED 04/17/18 09:57 Last Dose Date UNK 04/17/18 05:08 Last Dose Time UNK 04/17/18 05:08 Digoxin 0.7 ng/mL 04/17/18 05:08 ABX Reporting Has patient been on IV antibiotics over the past 48 hours?: No Current Medications - Current Medications Current Medications: Laboratory Results WBC 11.8 x10^3/uL (4.8-10.8) H 04/19/18 04:30 RBC 3.37 10^6/uL (4.70-6.10) L 04/19/18 04:30 Hgb 10.7 g/dL (14.0-18.0) L 04/19/18 04:30 Hct 32.5 % (42.0-52.0) L 04/19/18 04:30 MCV 96.5 fL (80.0-94.0) H 04/19/18 04:30 MCH 31.7 pg (27.0-31.0) H 04/19/18 04:30 MCHC 32.9 g/dL (32.0-36.0) 04/19/18 04:30 RDW 15.1 % (12.0-15.0) H 04/19/18 04:30 Plt Count 204 10^3/uL (130-450) 04/19/18 04:30 MPV 10.2 fL (7.4-11.4) 04/19/18 04:30 Neut # (Auto) 14.6 10^3/uL (1.5-6.6) H 04/17/18 02:23 Lymph # (Auto) 0.3 10^3/uL (1.5-3.5) L 04/17/18 02:23 [place] # (Auto) 0.1 10^3/uL (0.0-1.0) 04/17/18 02:23 Eos # (Auto) 0.0 10^3/uL (0.0-0.7) 04/17/18 02:23 Baso # (Auto) 0.0 10^3/uL (0.0-0.1) 04/17/18 02:23 Absolute Nucleated RBC 0.02 x10^3/uL 04/17/18 02:23 Nucleated RBC % 0.2 /100WBC 04/17/18 02:23 PT 26.1 secs (9.9-12.6) H 04/19/18 04:30 INR 2.4 (0.8-1.2) H 04/19/18 04:30 APTT 27.2 secs (24.9-33.3) 04/17/18 02:03 Sodium 138 mmol/L (135-145) 04/19/18 04:30 Potassium 3.9 mmol/L (3.5-5.0) 04/19/18 04:30 Chloride 109 mmol/L (101-111) 04/19/18 04:30 Carbon Dioxide 19 mmol/L (21-32) L 04/19/18 04:30 Anion Gap 10.0 (6-13) 04/19/18 04:30 BUN 21 mg/dL (6-20) H 04/19/18 04:30 Creatinine 1.1 mg/dL (0.6-1.2) 04/19/18 04:30 Estimated GFR (MDRD) 64 (>89) L 04/19/18 04:30 Glucose 98 mg/dL (70-100) 04/19/18 04:30 Lactic Acid 1.3 mmol/L (0.5-2.2) 04/17/18 09:00 Calcium 8.5 mg/dL (8.5-10.3) 04/19/18 04:30 Phosphorus 2.5 mg/dL (2.5-4.6) 04/17/18 02:03 Magnesium 2.1 mg/dL (1.7-2.8) 04/19/18 04:30 Total Bilirubin 3.5 mg/dL (0.2-1.0) H 04/17/18 02:03 AST 24 IU/L (10-42) 04/17/18 02:03 ALT 12 IU/L (10-60) 04/17/18 02:03 Alkaline Phosphatase 64 IU/L (42-121) 04/17/18 02:03 Troponin I 0.12 ng/mL (<0.49) 04/17/18 18:04 B-Natriuretic Peptide 273 pg/mL (5-100) H 04/17/18 02:23 Total Protein 6.6 g/dL (6.7-8.2) L 04/17/18 02:03 Albumin 3.8 g/dL (3.2-5.5) 04/17/18 02:03 Globulin 2.8 g/dL (2.1-4.2) 04/17/18 02:03 Albumin/Globulin Ratio 1.4 (1.0-2.2) 04/17/18 02:03 Lipase 103 U/L (22-51) H 04/17/18 02:03 TSH 0.50 uIU/mL (0.34-5.60) 04/17/18 05:08 Free T4 0.76 ng/dL (0.58-1.64) 04/17/18 05:08 Urine Color YELLOW 04/17/18 09:57 Urine Clarity CLEAR (CLEAR) 04/17/18 09:57 Urine pH 5.0 PH (5.0-7.5) 04/17/18 09:57 Ur Specific [place] 1.020 (1.002-1.030) 04/17/18 09:57 Urine Protein 30 mg/dL (NEGATIVE) H 04/17/18 09:57 Urine Glucose (UA) NEGATIVE mg/dL (NEGATIVE) 04/17/18 09:57 Urine Ketones NEGATIVE mg/dL (NEGATIVE) 04/17/18 09:57 Urine Occult Blood LARGE (NEGATIVE) H 04/17/18 09:57 Urine Nitrite POSITIVE (NEGATIVE) H 04/17/18 09:57 Urine Bilirubin NEGATIVE (NEGATIVE) 04/17/18 09:57 Urine Urobilinogen 0.2 (NORMAL) E.U./dL (NORMAL) 04/17/18 09:57 Ur Leukocyte Esterase TRACE (NEGATIVE) H 04/17/18 09:57 Urine RBC 11-25 /HPF (0-5) H 04/17/18 09:57 Urine WBC 4-5 /HPF (0-3) 04/17/18 09:57 Ur Squamous Epith Cells RARE Squamous (<= Few) 04/17/18 09:57 Urine Bacteria Moderate /HPF (None Seen) H 04/17/18 09:57 Ur Microscopic Review INDICATED 04/17/18 09:57 Urine Culture Comments INDICATED 04/17/18 09:57 Last Dose Date UNK 04/17/18 05:08 Last Dose Time K 04/17/18 05:08 Digoxin 0.7 ng/mL 04/17/18 05:08
[2018-04-19] MEDS ORDERED: BENZOCAINE/MENTHOL LOZENGE MM PRN (18:29)
[2018-04-19] MEDS: ATORVASTATIN 10 MG TABLET PO SCH (20:38)
[2018-04-19] MEDS: ACETAMINOPHEN 325 MG TABLET PO PRN (20:38)
[2018-04-19] MEDS: CARBOXYMETHYLCELLULOSE OPHTH DROPS EACHEYE PRN (20:38)
[2018-04-19] MEDS ORDERED: WARFARIN 2.5 MG TABLET PO SCH (21:00)
[2018-04-19] MEDS ORDERED: QUEtiapine 25 MG TABLET ONE (22:29)
[2018-04-19] MEDS ORDERED: QUEtiapine 25 MG TABLET PO SCH (23:00)
[2018-04-20] MEDS ORDERED: QUEtiapine 25 MG TABLET PO STA (01:01)
[2018-04-20] MEDS: SODIUM CHLORIDE FLUSH 0.9% 10 ML SYRINGE IVP SCH ×2 (01:14→08:31)
[2018-04-20] MEDS: CELECOXIB 100 MG CAPSULE PO SCH (08:29)
[2018-04-20] MEDS: LEVOTHYROXINE 112 MCG TABLET PO SCH (08:30)
[2018-04-20] MEDS: CARVEDILOL 3.125 MG TABLET PO SCH (08:30)
[2018-04-20] MEDS: guaiFENesin 600 MG TABLET PO SCH (08:30)
[2018-04-20] MEDS: levoFLOXacin 250 MG TABLET PO SCH (08:30)
[2018-04-20] MEDS: POLYETHYLENE GLYCOL 3350 17 GM PACKET PO SCH (08:31)
[2018-04-20] MEDS: DIGOXIN 125 MCG TABLET PO SCH (08:35)
[2018-04-20 08:55] LABS: HGB - HEMOGLOBIN 11.3 g/dL (14.0-18.0); MEAN CORPUSCULAR HGB CONC 33.4 g/dL (32.0-36.0); MEAN CORPUSCULAR VOLUME 95.7 fL (80.0-94.0); MEAN PLATELET VOLUME 9.4 fL (7.4-11.4); RED BLOOD COUNT 3.54 10^6/uL (4.70-6.10); RED CELL DISTRIBUTION WIDTH 14.9 % (12.0-15.0); WHITE BLOOD COUNT 7.4 x10^3/uL (4.8-10.8)
[2018-04-20 09:05] LABS: CALCIUM 8.8 mg/dL (8.5-10.3); CREATININE 1.2 mg/dL (0.6-1.2); MAGNESIUM 1.9 mg/dL (1.7-2.8)
[2018-04-20 09:13] LABS: INR 2.7 (0.8-1.2); PT - PROTHROMBIN TIME 29.7 secs (9.9-12.6)
--- NOTE | 2018-04-20 12:23 | Discharge Plan ---
Discharge Plan Disposition: 01 Home, Self Care Condition: Stable Prescriptions: levoFLOXacin [Levaquin] 750 mg PO DAILY #10 tablet Diet: Cardiac Activity Restrictions: Activity as Tolerated Shower Restrictions: No Driving Restrictions: No Assistance Devices: Walker Weight Bearing: Full Weight Additional Instructions or Follow Up instructions: Your brought into the emergency department after he was found down on the floor in her bathroom. On presentation you were found to have sepsis and were admitted to our intensive care unit. Sepsis was due to a urinary tract infection for which she were placed on IV antibiotics. You have now much improved and were switched to oral antibiotics. He will continue your antibiotics for another 10 days we have sent a prescription to your pharmacy. Please follow-up with your primary care physician in the next week. You will return home back with your and daughter. No Smoking: If you smoke, Please STOP! Call for help. Follow-up with: Thee Napoles MD [Primary Care Provider] -
[2018-04-20 13:02] VITALS: BP 123/65
--- NOTE | 2018-04-20 14:44 | DISCHARGE SUMMARY ---
Discharge Summary Admit Date: 04/17/18 Discharge Date: 04/20/18 Discharging Provider: Yayo Coleman MD Primary Care Provider: Kervin Napoles MD Code Status: Do Not Attempt Resuscitation Condition at Discharge: Stable Discharge Disposition: 01 Home, Self Care - DIAGNOSES Admission Diagnoses: 1. Urinary tract infection 2. Hypertension 3. Chronic kidney disease 4. History of aortic valve replacement 5. Chronic systolic congestive heart failure, NYHA class II Discharge Diagnoses with Status of Each Condition: 1. Sepsis: Resolved 2. Hypovolemic shock: Resolved 3. Urinary tract infection: Improved 4. Status post aortic valve replacement: Stable 5. Chronic atrial fibrillation: Stable 6. Acute non-ST elevation myocardial infarction: Stable - HPI History of Present Illness: Mr. Malvin Nava is a very pleasant 87-year-old gentleman who has a recent history of frequency, urgency and incontinence which began yesterday. At about 1 AM this morning the patient's got up to go to the bathroom and found him on the floor; she called EMS who brought him into the emergency department where he was found to be feverish with a white blood cell count of 15,000, a BNP of 273, and elevated bilirubin and lipase levels. He will be admitted to medical surgical bed, placed on IV antibiotics, and his electrolytes will be corrected. 8 hours after admission: The patient was only responding to painful stimuli this am (sternal rub). BP 80-90 systolic even after a 500 cc saline fluid bolus. Skin warm and mildly diaphoretc. Lungs clear anteriorly. Cardiac sounds do not have crisp valve click sounds. Imp/Plan: Shock. Transfer patient to the ICU. Status: critical. Gentle hydration since he could be dehydrated due to fever. Follow I's and Os and daily weight. VS q1h and follow MAP, as he may need pressors. Check EKG and troponins to R/O [place]. Check Echo to R/O cardiogenic shock and evaluate abnormal prosthetic valve sounds. Check lactic acid level for possible septic shock. Blood culture, if not yet done. Straight cath for urinalysis and culture and prn str. cath. Hold Carvedilol and Lisinopril. - HOSPITAL COURSE Hospital Course: (1) Sepsis Assessment/Plan: Resolved IVFs stopped No bacteremia, but source is likely urine given symptoms. Cultures negative Switched from IV to PO levaquin (2) UTI (urinary tract infection) Assessment/Plan: Cultures negative Changed abx to PO levaquin Improving Weak but appears to be doing well with PT and will be able to return home with support Will treat for 14 days with PO levaquin given complicated UTI with negative cultures (3) S/P AVR Assessment/Plan: Echo showed stable AVR function. Target INR is 2.5-3.5 with a mechanical valve. INR 2.7 at discharge Stable (4) Chronic atrial fibrillation Assessment/Plan: Initially bradycardic (was on maximum Coreg dose). Started on Coreg at 6.25 mg po bid. Continued Coumadin and target INR with a mechanical valve is 2.5-3.5. Stable at discharge (5) Acute non-ST elevation myocardial infarction (NSTEMI) Assessment/Plan: Pt ruled in for an [place], by EKG changes and rise an fall of troponin criteria. His Echo shows a slightly depressed LVEF of 40-45%, which is similar to his last LVEF. It is likely that he had hypoperfusion of coronaries from shock. Restarted CoReg and lisinopril at discharge He will follow up with PCP (6) Hypovolemic shock Assessment/Plan: Resolved with gentle rehydration. Patient was admitted with sepsis with likely source being urinary as he was having urinary symptoms. The patient was given IV antibiotics and IV fluids with which sepsis resolved. The patient was back to his normal state of health by the time of discharge. The patient was discharged home on oral antibiotics. Patient's urine and blood cultures were negative. Patient will be treated for 14 days with p.o. Levaquin. Patient was seen by physical therapy and was deemed well enough to go home with his and daughter. The patient was restarted on his medications for atrial fibrillation and CHF at time of discharge. The patient appeared well at the time of discharge. - ALLERGIES Allergies/Adverse Reactions: Allergies Allergy/AdvReac Type Severity Reaction Status Date / Time amoxicillin trihydrate * Allergy Unknown Verified 04/17/18 01:48 [From Augmentin] potassium clavulanate * Allergy Unknown Verified 04/17/18 01:48 [From Augmentin] - MEDICATIONS Home Medications: Ambulatory Orders Medication Instructions Recorded Confirmed Losartan Potassium [Cozaar] 100 mg PO QPM 05/30/17 04/17/18 Simvastatin 20 mg PO QPM 05/30/17 04/17/18 Celecoxib [CeleBREX] 200 mg PO DAILY capsule 05/31/17 04/17/18 Carboxymethylcellulose Sodium 1 drops EACHEYE PRN PRN 04/17/18 04/17/18 [Refresh Tears] Carvedilol 12.5 mg PO BID 04/17/18 04/17/18 Digoxin 125 mcg PO QPM 04/17/18 04/17/18 Levothyroxine Sodium [Synthroid] 112 mcg PO QDAC 04/17/18 04/17/18 Warfarin Sodium 2.5 mg PO SUMOWEFR@209904/17/18 04/17/18 Warfarin Sodium 5 mg PO TUTHSA@209904/17/18 04/17/18 levoFLOXacin [Levaquin] 750 mg PO DAILY #10 tablet 04/20/18 - PHYSICAL EXAM AT DISCHARGE General Appearance: positive: No acute distress, Alert, Other (Dementia) Eyes Bilateral: positive: Normal inspection, PERRL, EOMI, No lid inflammation, Conjunctivae nml, No scleral icterus ENT: positive: ENT inspection nml, Pharynx nml, No signs of dehydration. negative: Purulent nasal drainage, Pharyngeal erythema, Oral lesions Neck: positive: Nml inspection, Thyroid nml, No JVD, Trachea midline. negative : Thyromegaly, Lymphadenopathy (R), Lymphadenopathy (L), Stiff neck, Carotid bruit, Tracheal deviation Respiratory: positive: Chest non-tender, No respiratory distress, Breath sounds nml. negative: Wheezes, Rales, Rhonchi Cardiovascular: positive: No murmur, No gallop, Irregularly irregular Peripheral Pulses: positive: 2+ Abdomen: positive: Non-tender, No organomegaly, Nml bowel sounds, No distention. negative: Guarding, Rebound, Hepatomegaly Back: positive: Nml inspection. negative: CVA tenderness (R), CVA tenderness (L ) Skin: positive: Color nml, No rash, Warm. negative: Cyanosis, Diaphoresis, Pallor Extremities: positive: Non-tender, Full ROM, Nml appearance, Pedal edema Neurologic/Psychiatric: positive: CN's nml (2-12), Motor nml, Sensation nml, Mood/affect nml, Disoriented to time - LABS Result Diagrams: 04/20/18 08:30 04/20/18 08:30 Other Lab Results: Laboratory Results WBC 7.4 x10^3/uL (4.8-10.8) 04/20/18 08:30 RBC 3.54 10^6/uL (4.70-6.10) L 04/20/18 08:30 Hgb 11.3 g/dL (14.0-18.0) L 04/20/18 08:30 Hct 33.9 % (42.0-52.0) L 04/20/18 08:30 MCV 95.7 fL (80.0-94.0) H 04/20/18 08:30 MCH 32.0 pg (27.0-31.0) H 04/20/18 08:30 MCHC 33.4 g/dL (32.0-36.0) 04/20/18 08:30 RDW 14.9 % (12.0-15.0) 04/20/18 08:30 Plt Count 231 10^3/uL (130-450) 04/20/18 08:30 MPV 9.4 fL (7.4-11.4) 04/20/18 08:30 Neut # (Auto) 14.6 10^3/uL (1.5-6.6) H 04/17/18 02:23 Lymph # (Auto) 0.3 10^3/uL (1.5-3.5) L 04/17/18 02:23 [place] # (Auto) 0.1 10^3/uL (0.0-1.0) 04/17/18 02:23 Eos # (Auto) 0.0 10^3/uL (0.0-0.7) 04/17/18 02:23 Baso # (Auto) 0.0 10^3/uL (0.0-0.1) 04/17/18 02:23 Absolute Nucleated RBC 0.02 x10^3/uL 04/17/18 02:23 Nucleated RBC % 0.2 /100WBC 04/17/18 02:23 PT 29.7 secs (9.9-12.6) H 04/20/18 08:30 INR 2.7 (0.8-1.2) H 04/20/18 08:30 APTT 27.2 secs (24.9-33.3) 04/17/18 02:03 Sodium 138 mmol/L (135-145) 04/20/18 08:30 Potassium 3.7 mmol/L (3.5-5.0) 04/20/18 08:30 Chloride 111 mmol/L (101-111) 04/20/18 08:30 Carbon Dioxide 20 mmol/L (21-32) L 04/20/18 08:30 Anion Gap 7.0 (6-13) 04/20/18 08:30 BUN 19 mg/dL (6-20) 04/20/18 08:30 Creatinine 1.2 mg/dL (0.6-1.2) 04/20/18 08:30 Estimated GFR (MDRD) 58 (>89) L 04/20/18 08:30 Glucose 121 mg/dL (70-100) H 04/20/18 08:30 Lactic Acid 1.3 mmol/L (0.5-2.2) 04/17/18 09:00 Calcium 8.8 mg/dL (8.5-10.3) 04/20/18 08:30 Phosphorus 2.5 mg/dL (2.5-4.6) 04/17/18 02:03 Magnesium 1.9 mg/dL (1.7-2.8) 04/20/18 08:30 Total Bilirubin 3.5 mg/dL (0.2-1.0) H 04/17/18 02:03 AST 24 IU/L (10-42) 04/17/18 02:03 ALT 12 IU/L (10-60) 04/17/18 02:03 Alkaline Phosphatase 64 IU/L (42-121) 04/17/18 02:03 Troponin I 0.12 ng/mL (<0.49) 04/17/18 18:04 B-Natriuretic Peptide 273 pg/mL (5-100) H 04/17/18 02:23 Total Protein 6.6 g/dL (6.7-8.2) L 04/17/18 02:03 Albumin 3.8 g/dL (3.2-5.5) 04/17/18 02:03 Globulin 2.8 g/dL (2.1-4.2) 04/17/18 02:03 Albumin/Globulin Ratio 1.4 (1.0-2.2) 04/17/18 02:03 Lipase 103 U/L (22-51) H 04/17/18 02:03 TSH 0.50 uIU/mL (0.34-5.60) 04/17/18 05:08 Free T4 0.76 ng/dL (0.58-1.64) 04/17/18 05:08 Urine Color YELLOW 04/17/18 09:57 Urine Clarity CLEAR (CLEAR) 04/17/18 09:57 Urine pH 5.0 PH (5.0-7.5) 04/17/18 09:57 Ur Specific [place] 1.020 (1.002-1.030) 04/17/18 09:57 Urine Protein 30 mg/dL (NEGATIVE) H 04/17/18 09:57 Urine Glucose (UA) NEGATIVE mg/dL (NEGATIVE) 04/17/18 09:57 Urine Ketones NEGATIVE mg/dL (NEGATIVE) 04/17/18 09:57 Urine Occult Blood LARGE (NEGATIVE) H 04/17/18 09:57 Urine Nitrite POSITIVE (NEGATIVE) H 04/17/18 09:57 Urine Bilirubin NEGATIVE (NEGATIVE) 04/17/18 09:57 Urine Urobilinogen 0.2 (NORMAL) E.U./dL (NORMAL) 04/17/18 09:57 Ur Leukocyte Esterase TRACE (NEGATIVE) H 04/17/18 09:57 Urine RBC 11-25 /HPF (0-5) H 04/17/18 09:57 Urine WBC 4-5 /HPF (0-3) 04/17/18 09:57 Ur Squamous Epith Cells RARE Squamous (<= Few) 04/17/18 09:57 Urine Bacteria Moderate /HPF (None Seen) H 04/17/18 09:57 Ur Microscopic Review INDICATED 04/17/18 09:57 Urine Culture Comments INDICATED 04/17/18 09:57 Last Dose Date UNK 04/17/18 05:08 Last Dose Time UNK 04/17/18 05:08 Digoxin 0.7 ng/mL 04/17/18 05:08 - DIAGNOSTIC IMAGING Diagnostic Imaging Results: Final report reviewed Diagnostic Imaging Results Comments: Chest x-ray 04/17/2018 Impression: 1. No definite pneumonia 2. Mild CHF Chest x-ray 04/18/2018 Impression: Clear lungs. Mild cardiac enlargement. - FOLLOW UP Follow Up: Patient was hospitalized for sepsis and dehydration due to likely urinary tract infection. Patient was treated with IV antibiotics and IV fluids and improved quickly. Patient was seen by physical therapy and had improvement in his overall strength to where he could return home with his family. The patient does have some dementia but appeared to be back at his baseline mental status. The patient was discharged home with oral antibiotics which she will take for total of 14 days to complete treatment for a complicated UTI with sepsis. The patient was restarted on his home medications for CHF and atrial fibrillation. The patient was continued on Coumadin and his INR was therapeutic at discharge. The patient will follow up with his primary care physician to follow-up on his hospitalization and ensure that he is continuing to progress. - TIME SPENT Time Spent in Discharge (Minutes): 45
== END 2018-04-20 14:00 | disposition home or self-care (01) | DRG 871 ==
LOC: EDUNIT# → ED 01:38 → MS2 03:10 → ICU 11:04
PROVIDERS: ADMIT Hospitalist; ATTEND Internal Medicine
DX: J18.9 Pneumonia, unspecified organism (principal); R09.02 Hypoxemia; I48.91 Unspecified atrial fibrillation; I45.10 Unspecified right bundle-branch block; I11.0 Hypertensive heart disease with heart failure; A41.9 Sepsis, unspecified organism; I21.A1 Myocardial infarction type 2; R57.1 Hypovolemic shock; N39.0 Urinary tract infection, site not specified; F17.200 Nicotine dependence, unspecified, uncomplicated; I50.22 Chronic systolic (congestive) heart failure; I15.9 Secondary hypertension, unspecified; N18.3 Chronic kidney disease, stage 3 (moderate); I48.2 Chronic atrial fibrillation; F03.90 Unspecified dementia, unspecified severity, without behavioral disturbance, psychotic disturbance, mood disturbance, and anxiety; E78.00 Pure hypercholesterolemia, unspecified; I25.10 Atherosclerotic heart disease of native coronary artery without angina pectoris; E03.9 Hypothyroidism, unspecified; R31.0 Gross hematuria; Z79.899 Other long term (current) drug therapy; Z79.01 Long term (current) use of anticoagulants; Z95.2 Presence of prosthetic heart valve; Z87.442 Personal history of urinary calculi; Z95.5 Presence of coronary angioplasty implant and graft; Z85.828 Personal history of other malignant neoplasm of skin; Z72.0 Tobacco use
CPT/HCPCS: 36415; 71045; 80048; 80053; 80162; 81001; 81003; 83605; 83690; 83735; 83880; 84100; 84439; 84443; 84484; 85025; 85027; 85610; 85730; 87040; 87086; 87150; 93005; 93306; 96361; 96365; 96366; 96367; 99284; 99285

== ENCOUNTER 2018-04-26 08:00 | Outpatient (CLI) | payer MEDICARE, OTHER ==
[2018-04-26 19:11] LABS: CALCIUM 9.3 mg/dL (8.5-10.3); CREATININE 1.5 mg/dL (0.6-1.2)
[2018-04-26 19:16] LABS: HGB - HEMOGLOBIN 12.1 g/dL (14.0-18.0); MEAN CORPUSCULAR HEMOGLOBIN 31.7 pg (27.0-31.0); MEAN CORPUSCULAR HGB CONC 31.8 g/dL (32.0-36.0); MEAN CORPUSCULAR VOLUME 99.7 fL (80.0-94.0); MEAN PLATELET VOLUME 9.2 fL (7.4-11.4); RED BLOOD COUNT 3.82 10^6/uL (4.70-6.10); RED CELL DISTRIBUTION WIDTH 15.7 % (12.0-15.0); WHITE BLOOD COUNT 13.4 x10^3/uL (4.8-10.8)
[2018-04-26 19:30] LABS: THYROID STIMULATING HORMONE 3.36 uIU/mL (0.34-5.60)
[2018-04-26 19:39] LABS: FOLATE 18.14 ng/mL (5.90 - >24.8)
== END 2018-04-26 08:01 | disposition home or self-care (01) ==
LOC: LAB.WCP 08:00
PROVIDERS: ATTEND Family Medicine
DX: I50.22 Chronic systolic (congestive) heart failure (principal); I10 Essential (primary) hypertension; E03.9 Hypothyroidism, unspecified
CPT/HCPCS: 36415; 80048; 82306; 82607; 82746; 83880; 84443; 85027

== ENCOUNTER 2018-05-04 15:20 | Outpatient (CLI) | payer MEDICARE, OTHER ==
[2018-05-04 18:39] LABS: BASOPHILS # (AUTO) 0.1 10^3/uL (0.0-0.1); BASOPHILS % (AUTO) 0.8 %; EOSINOPHILS # (AUTO) 0.3 10^3/uL (0.0-0.7); EOSINOPHILS % (AUTO) 2.6 %; HGB - HEMOGLOBIN 11.9 g/dL (14.0-18.0); LYMPHOCYTES # (AUTO) 1.9 10^3/uL (1.5-3.5); LYMPHOCYTES % (AUTO) 19.5 %; MEAN CORPUSCULAR HEMOGLOBIN 31.5 pg (27.0-31.0); MEAN CORPUSCULAR HGB CONC 32.6 g/dL (32.0-36.0); MEAN CORPUSCULAR VOLUME 96.7 fL (80.0-94.0); MONOCYTES # (AUTO) 1.5 10^3/uL (0.0-1.0); MONOCYTES % (AUTO) 15.4 %; NEUTROPHILS # (AUTO) 6.1 10^3/uL (1.5-6.6); NEUTROPHILS % (AUTO) 61.7 %; PLT - PLATELET COUNT 309 10^3/uL (130-450); RED BLOOD COUNT 3.78 10^6/uL (4.70-6.10); RED CELL DISTRIBUTION WIDTH 15.4 % (12.0-15.0); WHITE BLOOD COUNT 9.8 x10^3/uL (4.8-10.8)
== END 2018-05-04 15:21 | disposition home or self-care (01) ==
LOC: LAB.WCP 15:20
PROVIDERS: ATTEND Family Medicine
DX: I50.22 Chronic systolic (congestive) heart failure (principal); Z12.5 Encounter for screening for malignant neoplasm of prostate; D72.829 Elevated white blood cell count, unspecified
CPT/HCPCS: 36415; 83880; 85025; G0103; 84153

== ENCOUNTER 2019-01-18 08:00 | Outpatient (CLI) | payer MEDICARE, OTHER | END 2019-01-18 23:59 | disposition home or self-care (01) | LOC: LAB.WCP 08:00 | PROVIDERS: ATTEND Family Medicine | DX: I48.91 Unspecified atrial fibrillation (principal); Z79.01 Long term (current) use of anticoagulants | CPT/HCPCS: 81025 ==

== ENCOUNTER 2019-04-11 08:00 | Outpatient (CLI) | payer MEDICARE, OTHER ==
[2019-04-11 19:02] LABS: BASOPHILS # (AUTO) 0.1 10^3/uL (0.0-0.1); BASOPHILS % (AUTO) 0.8 %; EOSINOPHILS # (AUTO) 0.3 10^3/uL (0.0-0.7); EOSINOPHILS % (AUTO) 2.3 %; HGB - HEMOGLOBIN 12.5 g/dL (14.0-18.0); LYMPHOCYTES # (AUTO) 2.1 10^3/uL (1.5-3.5); MEAN CORPUSCULAR HEMOGLOBIN 31.5 pg (27.0-31.0); MEAN CORPUSCULAR HGB CONC 32.7 g/dL (32.0-36.0); MEAN CORPUSCULAR VOLUME 96.3 fL (80.0-94.0); MEAN PLATELET VOLUME 10.5 fL (7.4-11.4); MONOCYTES # (AUTO) 1.5 10^3/uL (0.0-1.0); MONOCYTES % (AUTO) 12.8 %; NEUTROPHILS # (AUTO) 7.7 10^3/uL (1.5-6.6); NEUTROPHILS % (AUTO) 66.1 %; PLT - PLATELET COUNT 252 10^3/uL (130-450); RED BLOOD COUNT 3.97 10^6/uL (4.70-6.10); RED CELL DISTRIBUTION WIDTH 13.6 % (12.0-15.0); WHITE BLOOD COUNT 11.6 x10^3/uL (4.8-10.8)
[2019-04-11 19:03] LABS: ALBUMIN 4.5 g/dL (3.2-5.5); ALBUMIN/GLOBULIN RATIO 1.5 (1.0-2.2); BILIRUBIN,TOTAL 2.2 mg/dL (0.2-1.0); CALCIUM 9.4 mg/dL (8.5-10.3); CREATININE 1.2 mg/dL (0.6-1.2); TOTAL PROTEIN 7.5 g/dL (6.7-8.2)
== END 2019-04-11 08:01 | disposition home or self-care (01) ==
LOC: LAB.WCP 08:00
PROVIDERS: ATTEND Family Medicine
DX: I25.10 Atherosclerotic heart disease of native coronary artery without angina pectoris (principal); I11.0 Hypertensive heart disease with heart failure; I50.9 Heart failure, unspecified
CPT/HCPCS: 36415; 80053; 84443; 85025

== ENCOUNTER 2019-04-14 13:04 | Outpatient (CLI) | payer MEDICARE, OTHER ==
[2019-04-14 13:25] LABS: BILIRUBIN,URINE NEGATIVE (NEGATIVE); GLUCOSE, URINE (UA) NEGATIVE (NEGATIVE); KETONES,URINE (UA) NEGATIVE (NEGATIVE); LEUKOCYTE ESTERASE, URINE NEGATIVE (NEGATIVE); NITRITE,URINE NEGATIVE (NEGATIVE); OCCULT BLOOD,URINE TRACE-LYSE (NEGATIVE); PH,URINE 5.5 PH (5.0-7.5); PROTEIN,URINE NEGATIVE (NEGATIVE); UROBILINOGEN,URINE 0.2 (NORMAL) E.U./dL (NORMAL)
[2019-04-14 13:31] LABS: CLARITY,URINE CLEAR (CLEAR)
== END 2019-04-14 13:05 | disposition home or self-care (01) ==
LOC: LAB 13:04
PROVIDERS: ATTEND Family Medicine
DX: D72.829 Elevated white blood cell count, unspecified (principal)
CPT/HCPCS: 81001; 81003; 87086

== ENCOUNTER 2019-05-02 08:00 | Outpatient (CLI) | payer MEDICARE, OTHER | END 2019-05-02 23:59 | disposition home or self-care (01) | LOC: LAB.WCP 08:00 | PROVIDERS: ATTEND Family Medicine | DX: I48.91 Unspecified atrial fibrillation (principal); Z79.01 Long term (current) use of anticoagulants; Z95.2 Presence of prosthetic heart valve ==

== ENCOUNTER 2019-05-23 08:00 | Outpatient (CLI) | payer MEDICARE, OTHER | END 2019-05-23 08:01 | disposition home or self-care (01) | LOC: LAB.WCP 08:00 | PROVIDERS: ATTEND Family Medicine | DX: I48.91 Unspecified atrial fibrillation (principal); Z79.01 Long term (current) use of anticoagulants ==

== ENCOUNTER 2019-05-29 08:00 | Outpatient (CLI) | payer MEDICARE, OTHER | END 2019-05-29 08:01 | disposition home or self-care (01) | LOC: LAB.WCP 08:00 | PROVIDERS: ATTEND Family Medicine | DX: I48.91 Unspecified atrial fibrillation (principal); Z79.01 Long term (current) use of anticoagulants; I34.1 Nonrheumatic mitral (valve) prolapse ==

== ENCOUNTER 2019-06-05 08:00 | Outpatient (CLI) | payer MEDICARE, OTHER | END 2019-06-05 23:59 | disposition home or self-care (01) | LOC: LAB.WCP 08:00 | PROVIDERS: ATTEND Family Medicine | DX: I48.91 Unspecified atrial fibrillation (principal); Z79.01 Long term (current) use of anticoagulants; I34.1 Nonrheumatic mitral (valve) prolapse ==

== ENCOUNTER 2019-06-12 08:00 | Outpatient (CLI) | payer MEDICARE, OTHER | END 2019-06-12 23:59 | disposition home or self-care (01) | LOC: LAB.WCP 08:00 | PROVIDERS: ATTEND Family Medicine | DX: I48.91 Unspecified atrial fibrillation (principal); I34.1 Nonrheumatic mitral (valve) prolapse; Z79.01 Long term (current) use of anticoagulants ==

== ENCOUNTER 2019-06-29 08:00 | Outpatient (CLI) | payer MEDICARE, OTHER | END 2019-06-29 23:59 | disposition home or self-care (01) | LOC: LAB.WCP 08:00 | PROVIDERS: ATTEND Family Medicine | DX: I48.91 Unspecified atrial fibrillation (principal); Z95.2 Presence of prosthetic heart valve; Z79.01 Long term (current) use of anticoagulants ==

== ENCOUNTER 2019-07-13 08:00 | Outpatient (CLI) | payer MEDICARE, OTHER | END 2019-07-13 23:59 | disposition home or self-care (01) | LOC: LAB.WCP 08:00 | PROVIDERS: ATTEND Family Medicine | DX: I48.91 Unspecified atrial fibrillation (principal) ==

== ENCOUNTER 2019-07-27 08:00 | Outpatient (CLI) | payer MEDICARE, OTHER | END 2019-07-27 23:59 | disposition home or self-care (01) | LOC: LAB.WCP 08:00 | PROVIDERS: ATTEND Family Medicine | DX: Z79.01 Long term (current) use of anticoagulants (principal); I48.91 Unspecified atrial fibrillation ==

== ENCOUNTER 2019-09-21 08:00 | Outpatient (CLI) | payer MEDICARE, OTHER | END 2019-09-21 23:59 | disposition home or self-care (01) | LOC: LAB.WCP 08:00 | PROVIDERS: ATTEND Family Medicine | DX: Z79.01 Long term (current) use of anticoagulants (principal); Z95.2 Presence of prosthetic heart valve ==

== ENCOUNTER 2019-10-19 08:00 | Outpatient (CLI) | payer MEDICARE, OTHER | END 2019-10-19 23:59 | disposition home or self-care (01) | LOC: LAB.WCP 08:00 | PROVIDERS: ATTEND Family Medicine | DX: Z79.01 Long term (current) use of anticoagulants (principal); I48.91 Unspecified atrial fibrillation; I34.1 Nonrheumatic mitral (valve) prolapse ==

== ENCOUNTER 2019-11-08 08:00 | Outpatient (CLI) | payer MEDICARE, OTHER | END 2019-11-08 23:59 | disposition home or self-care (01) | LOC: LAB.WCP 08:00 | PROVIDERS: ATTEND Family Medicine | DX: Z79.01 Long term (current) use of anticoagulants (principal); I48.91 Unspecified atrial fibrillation; I34.1 Nonrheumatic mitral (valve) prolapse ==

== ENCOUNTER 2019-11-22 08:00 | Outpatient (CLI) | payer MEDICARE, OTHER | END 2019-11-22 23:59 | disposition home or self-care (01) | LOC: LAB.WCP 08:00 | PROVIDERS: ATTEND Family Medicine | DX: Z79.01 Long term (current) use of anticoagulants (principal); I48.91 Unspecified atrial fibrillation; I34.1 Nonrheumatic mitral (valve) prolapse ==

== ENCOUNTER 2019-12-06 08:00 | Outpatient (CLI) | payer MEDICARE, OTHER | END 2019-12-06 23:59 | disposition home or self-care (01) | LOC: LAB.WCP 08:00 | PROVIDERS: ATTEND Family Medicine | DX: Z79.01 Long term (current) use of anticoagulants (principal); I48.91 Unspecified atrial fibrillation; Z95.2 Presence of prosthetic heart valve ==

== ENCOUNTER 2019-12-07 15:41 | Outpatient (CLI) | payer MEDICARE, OTHER ==
[2019-12-07 19:04] LABS: BASOPHILS % (AUTO) 0.7 %; EOSINOPHILS % (AUTO) 2.2 %; HGB - HEMOGLOBIN 12.4 g/dL (14.0-18.0); LYMPHOCYTES % (AUTO) 20.2 %; MEAN CORPUSCULAR HEMOGLOBIN 31.9 pg (27.0-31.0); MEAN CORPUSCULAR HGB CONC 31.9 g/dL (32.0-36.0); MEAN PLATELET VOLUME 11.9 fL (7.4-11.4); MONOCYTES % (AUTO) 15.7 %; NEUTROPHILS % (AUTO) 60.8 %; PLT - PLATELET COUNT 294 10^3/uL (130-450); RED BLOOD COUNT 3.89 10^6/uL (4.70-6.10); RED CELL DISTRIBUTION WIDTH 14.2 % (12.0-15.0); WHITE BLOOD COUNT 11.4 x10^3/uL (4.8-10.8)
[2019-12-07 19:17] LABS: ABNORMAL LYMPHS % (MANUAL) 0 %
[2019-12-07 19:27] LABS: ALBUMIN 4.7 g/dL (3.2-5.5); ALBUMIN/GLOBULIN RATIO 1.8 (1.0-2.2); CALCIUM 9.2 mg/dL (8.5-10.3); CREATININE 1.4 mg/dL (0.6-1.2); TOTAL PROTEIN 7.3 g/dL (6.7-8.2)
[2019-12-07 20:17] LABS: BAND NEUTROPHILS % (MANUAL) 6 %; BASOPHILS # (MANUAL) 0.1 10^3/uL (0-0.1); BASOPHILS % (MANUAL) 1 %; DIFFERENTIAL COMMENT MANUAL DIFFERENTIAL; EOSINOPHILS # (MANUAL) 0.1 10^3/uL (0-0.7); LYMPHOCYTES # (MANUAL) 2.2 10^3/uL (1.5-3.5); LYMPHOCYTES % (MANUAL) 19 %; MONOCYTES # (MANUAL) 1.6 10^3/uL (0.0-1.0); PLATELET ESTIMATE, MANUAL NORMAL (130-450,000) (NORMAL); PLATELET MORPHOLOGY NORMAL APPEARANCE (NORMAL); RBC MORPHOLOGY (MULTIPLE) NORMAL APPEARANCE (NORMAL)
[2019-12-07 20:57] LABS: FREE T4 (FREE THYROXINE) 1.21 ng/dL (0.58-1.64)
== END 2019-12-07 23:59 | disposition home or self-care (01) ==
LOC: LAB.WCP 15:41
PROVIDERS: ATTEND Family Medicine
DX: R42 Dizziness and giddiness (principal); E03.9 Hypothyroidism, unspecified
CPT/HCPCS: 36415; 80053; 84439; 84443; 85025

== ENCOUNTER 2020-01-03 08:00 | Outpatient (CLI) | payer MEDICARE, OTHER | END 2020-01-03 23:59 | disposition home or self-care (01) | LOC: LAB.WCP 08:00 | PROVIDERS: ATTEND Family Medicine | DX: I48.91 Unspecified atrial fibrillation (principal); Z79.01 Long term (current) use of anticoagulants ==

== ENCOUNTER 2020-02-05 08:00 | Outpatient (CLI) | payer MEDICARE, OTHER | END 2020-02-05 23:59 | disposition home or self-care (01) | LOC: LAB.WCP 08:00 | PROVIDERS: ATTEND Family Medicine | DX: I48.91 Unspecified atrial fibrillation (principal); Z79.01 Long term (current) use of anticoagulants ==

== ENCOUNTER 2020-02-13 08:00 | Outpatient (CLI) | payer MEDICARE, OTHER | END 2020-02-13 23:59 | disposition home or self-care (01) | LOC: LAB.WCP 08:00 | PROVIDERS: ATTEND Family Medicine | DX: I48.91 Unspecified atrial fibrillation (principal); Z79.01 Long term (current) use of anticoagulants ==

== ENCOUNTER 2020-03-17 08:00 | Outpatient (CLI) | payer MEDICARE, OTHER | END 2020-03-17 23:59 | disposition home or self-care (01) | LOC: LAB.WCP 08:00 | PROVIDERS: ATTEND Family Medicine | DX: I48.91 Unspecified atrial fibrillation (principal); Z79.01 Long term (current) use of anticoagulants ==

== ENCOUNTER 2020-03-31 08:00 | Outpatient (CLI) | payer MEDICARE, OTHER | END 2020-03-31 23:59 | disposition home or self-care (01) | LOC: LAB.WCP 08:00 | PROVIDERS: ATTEND Family Medicine | DX: I48.91 Unspecified atrial fibrillation (principal); Z79.01 Long term (current) use of anticoagulants ==

== ENCOUNTER 2020-04-14 08:00 | Outpatient (CLI) | payer MEDICARE, OTHER | END 2020-04-14 23:59 | disposition home or self-care (01) | LOC: LAB.WCP 08:00 | PROVIDERS: ATTEND Family Medicine | DX: I48.91 Unspecified atrial fibrillation (principal); Z79.01 Long term (current) use of anticoagulants ==

== ENCOUNTER 2020-05-12 08:00 | Outpatient (CLI) | payer MEDICARE, OTHER | END 2020-05-12 23:59 | disposition home or self-care (01) | LOC: LAB.WCP 08:00 | PROVIDERS: ATTEND Family Medicine | DX: I48.91 Unspecified atrial fibrillation (principal); G45.9 Transient cerebral ischemic attack, unspecified; Z79.01 Long term (current) use of anticoagulants ==

== ENCOUNTER 2020-06-09 08:00 | Outpatient (CLI) | payer MEDICARE, OTHER | END 2020-06-09 23:59 | disposition home or self-care (01) | LOC: LAB.WCP 08:00 | PROVIDERS: ATTEND Family Medicine | DX: I48.91 Unspecified atrial fibrillation (principal); Z79.01 Long term (current) use of anticoagulants ==

== ENCOUNTER 2020-07-08 08:00 | Outpatient (CLI) | payer MEDICARE, OTHER | END 2020-07-08 23:59 | disposition home or self-care (01) | LOC: LAB.WCP 08:00 | PROVIDERS: ATTEND Family Medicine | DX: I48.91 Unspecified atrial fibrillation (principal); Z79.01 Long term (current) use of anticoagulants ==

== ENCOUNTER 2020-08-05 08:00 | Outpatient (CLI) | payer MEDICARE, OTHER | END 2020-08-05 23:59 | disposition home or self-care (01) | LOC: LAB.WCP 08:00 | PROVIDERS: ATTEND Family Medicine | DX: Z79.01 Long term (current) use of anticoagulants (principal) ==

== ENCOUNTER 2020-09-01 08:00 | Outpatient (CLI) | payer MEDICARE, OTHER | END 2020-09-01 23:59 | disposition home or self-care (01) | LOC: LAB.WCP 08:00 | PROVIDERS: ATTEND Nurse Practitioner Family | DX: Z79.01 Long term (current) use of anticoagulants (principal) ==

== ENCOUNTER 2020-09-29 08:00 | Outpatient (CLI) | payer MEDICARE, OTHER | END 2020-09-29 23:59 | disposition home or self-care (01) | LOC: LAB.WCP 08:00 | PROVIDERS: ATTEND Family Medicine | DX: Z79.01 Long term (current) use of anticoagulants (principal) ==

== ENCOUNTER 2020-11-24 08:00 | Outpatient (CLI) | payer MEDICARE, OTHER | END 2020-11-24 23:59 | disposition home or self-care (01) | LOC: LAB.WCP 08:00 | PROVIDERS: ATTEND Family Medicine | DX: Z79.01 Long term (current) use of anticoagulants (principal) ==

== ENCOUNTER 2020-12-29 11:43 | Outpatient (CLI) | payer MEDICARE, OTHER ==
[2020-12-29 17:51] LABS: BASOPHILS # (AUTO) 0.1 10^3/uL (0.0-0.1); BASOPHILS % (AUTO) 0.8 %; EOSINOPHILS # (AUTO) 0.2 10^3/uL (0.0-0.7); EOSINOPHILS % (AUTO) 2.3 %; HCT - HEMATOCRIT 39.7 % (42.0-52.0); HGB - HEMOGLOBIN 12.4 g/dL (14.0-18.0); LYMPHOCYTES # (AUTO) 1.9 10^3/uL (1.5-3.5); LYMPHOCYTES % (AUTO) 21.3 %; MEAN CORPUSCULAR HEMOGLOBIN 31.2 pg (27.0-31.0); MEAN CORPUSCULAR HGB CONC 31.2 g/dL (32.0-36.0); MEAN PLATELET VOLUME 12.3 fL (7.4-11.4); MONOCYTES # (AUTO) 1.4 10^3/uL (0.0-1.0); NEUTROPHILS # (AUTO) 5.3 10^3/uL (1.5-6.6); NEUTROPHILS % (AUTO) 59.1 %; PLT - PLATELET COUNT 290 10^3/uL (130-450); RED BLOOD COUNT 3.97 10^6/uL (4.70-6.10); RED CELL DISTRIBUTION WIDTH 14.4 % (12.0-15.0); WHITE BLOOD COUNT 8.9 x10^3/uL (4.8-10.8)
[2020-12-29 17:59] LABS: ALBUMIN 4.5 g/dL (3.2-5.5); ALBUMIN/GLOBULIN RATIO 1.6 (1.0-2.2); ALKALINE PHOSPHATASE 56 IU/L (42-121); ALT ALANINE AMINOTRANSFERASE 18 IU/L (10-60); AST ASPARTATE AMINOTRANSFERASE 23 IU/L (10-42); BILIRUBIN,TOTAL 2.4 mg/dL (0.2-1.0); BUN - BLOOD UREA NITROGEN 14 mg/dL (6-20); CALCIUM 9.2 mg/dL (8.5-10.3); CARBON DIOXIDE - CO2 25 mmol/L (21-32); CHLORIDE 108 mmol/L (101-111); CREATININE 1.2 mg/dL (0.6-1.2); DIGOXIN 0.3 ng/mL; GFR - MDRD 57 (>89); GLUCOSE 99 mg/dL (70-100); POTASSIUM 3.8 mmol/L (3.5-5.0); SODIUM 140 mmol/L (135-145); TOTAL PROTEIN 7.4 g/dL (6.7-8.2)
[2020-12-29 18:13] LABS: THYROID STIMULATING HORMONE 0.13 uIU/mL (0.34-5.60)
[2020-12-29 19:13] LABS: FREE T4 (FREE THYROXINE) 1.63 ng/dL (0.58-1.64)
[2020-12-29 20:08] LABS: ESTIMATED AVERAGE GLUCOSE 120 mg/dL (70-100); HEMOGLOBIN A1c% 5.8 % (4.27-6.07)
== END 2020-12-29 11:44 | disposition home or self-care (01) ==
LOC: LAB.N 11:43
PROVIDERS: ATTEND Internal Medicine
DX: I48.91 Unspecified atrial fibrillation (principal); I25.5 Ischemic cardiomyopathy; E74.39 Other disorders of intestinal carbohydrate absorption
CPT/HCPCS: 36415; 80053; 80162; 83036; 84439; 84443; 85025

== ENCOUNTER 2021-01-26 08:00 | Outpatient (CLI) | payer MEDICARE, OTHER | END 2021-01-26 23:59 | disposition home or self-care (01) | LOC: LAB.WCP 08:00 | PROVIDERS: ATTEND Family Medicine | DX: Z95.2 Presence of prosthetic heart valve (principal); I48.21 Permanent atrial fibrillation; Z79.01 Long term (current) use of anticoagulants ==

== ENCOUNTER 2021-02-09 08:00 | Outpatient (CLI) | payer MEDICARE, OTHER | END 2021-02-09 23:59 | disposition home or self-care (01) | LOC: LAB.WCP 08:00 | PROVIDERS: ATTEND Family Medicine | DX: I48.21 Permanent atrial fibrillation (principal); I34.0 Nonrheumatic mitral (valve) insufficiency; Z95.2 Presence of prosthetic heart valve; Z79.01 Long term (current) use of anticoagulants ==

== ENCOUNTER 2021-02-23 08:00 | Outpatient (CLI) | payer MEDICARE, OTHER | END 2021-02-23 23:59 | disposition home or self-care (01) | LOC: LAB.WCP 08:00 | PROVIDERS: ATTEND Internal Medicine | DX: I48.21 Permanent atrial fibrillation (principal); Z95.2 Presence of prosthetic heart valve; Z79.01 Long term (current) use of anticoagulants ==

== ENCOUNTER 2021-03-25 08:00 | Outpatient (CLI) | payer MEDICARE, OTHER | END 2021-03-25 23:59 | disposition home or self-care (01) | LOC: LAB.WCP 08:00 | PROVIDERS: ATTEND Internal Medicine | DX: I48.21 Permanent atrial fibrillation (principal); Z95.2 Presence of prosthetic heart valve; Z79.01 Long term (current) use of anticoagulants ==

== ENCOUNTER 2021-04-22 08:00 | Outpatient (CLI) | payer MEDICARE, OTHER | END 2021-04-22 23:59 | disposition home or self-care (01) | LOC: LAB.WCP 08:00 | PROVIDERS: ATTEND Internal Medicine | DX: I48.21 Permanent atrial fibrillation (principal); Z95.2 Presence of prosthetic heart valve; Z79.01 Long term (current) use of anticoagulants ==

== ENCOUNTER 2021-05-18 08:00 | Outpatient (CLI) | payer MEDICARE, OTHER | END 2021-05-18 23:59 | disposition home or self-care (01) | LOC: LAB.WCP 08:00 | PROVIDERS: ATTEND Internal Medicine | DX: I48.21 Permanent atrial fibrillation (principal); Z95.2 Presence of prosthetic heart valve; Z79.01 Long term (current) use of anticoagulants ==

== ENCOUNTER 2021-06-01 08:00 | Outpatient (CLI) | payer MEDICARE, OTHER | END 2021-06-01 23:59 | disposition home or self-care (01) | LOC: LAB.WCP 08:00 | PROVIDERS: ATTEND Internal Medicine | DX: I48.21 Permanent atrial fibrillation (principal); Z95.2 Presence of prosthetic heart valve; Z86.79 Personal history of other diseases of the circulatory system; Z79.01 Long term (current) use of anticoagulants ==

== ENCOUNTER 2021-06-24 14:25 | Outpatient (CLI) | payer MEDICARE, OTHER ==
[2021-06-24 17:57] LABS: BUN - BLOOD UREA NITROGEN 13 mg/dL (6-20); CALCIUM 9.4 mg/dL (8.5-10.3); CARBON DIOXIDE - CO2 26 mmol/L (21-32); CHLORIDE 104 mmol/L (101-111); CREATININE 1.3 mg/dL (0.6-1.2); DIGOXIN 0.2 ng/mL; GFR - MDRD 52 (>89); GLUCOSE 92 mg/dL (70-100); POTASSIUM 4.1 mmol/L (3.5-5.0); SODIUM 140 mmol/L (135-145)
== END 2021-06-24 14:26 | disposition home or self-care (01) ==
LOC: LAB.N 14:25
PROVIDERS: ATTEND Internal Medicine Cardiovascular Disease
DX: I25.10 Atherosclerotic heart disease of native coronary artery without angina pectoris (principal); I35.9 Nonrheumatic aortic valve disorder, unspecified; I48.21 Permanent atrial fibrillation; Z79.01 Long term (current) use of anticoagulants; Z95.2 Presence of prosthetic heart valve
CPT/HCPCS: 36415; 80048; 80162

== ENCOUNTER 2021-08-03 06:46 | Outpatient (CLI) | payer MEDICARE, OTHER | END 2021-08-03 06:47 | disposition EMS.NT | LOC: EMS 06:46 | DX: Z03.89 Encounter for observation for other suspected diseases and conditions ruled out (principal) ==

== ENCOUNTER 2021-08-03 11:15 | Emergency (ER) | payer MEDICARE, OTHER ==
--- NOTE | 2021-08-03 12:01 | CT Report ---
PROCEDURE: CT brain without contrast INDICATIONS: fall/head injury/pain TECHNIQUE: Noncontrast 4.5 mm thick angled axial sections acquired from the foramen magnum to the vertex. For r adiation dose reduction, the following was used: automated exposure control, adjustment of mA and/or kV according to patient size. COMPARISON: 05/30/2017 FINDINGS: Image quality: Excellent. CSF spaces: Basal cisterns are patent. No extra-axial fluid collections. Ventricles are normal in size and shape. Brain: No midline shift. No intracranial masses or hemorrhage. Gomez-white matter interface is norm al. Moderate cerebral and cerebellar volume loss and multifocal white matter hypodensities consisten t with chronic ischemic change noted. Skull and face: Calvarium and visualized facial bones are intact, without suspicious lesions. Scler otic vascular calcification in the cavernous portions of both ICA noted. Bilateral intraocular lens r eplacements noted. Sinuses: Visualized sinuses and mastoids are clear. Mild mucosal thickening as well as thickening o f the osseous avelar noted the left maxillary sinus, stable from a prior. IMPRESSION: Atrophy and chronic ischemic change without acute hemorrhage or mass effect. Reviewed by: Earle Jackson MD on 08/03/2021 11:00 AM INDRA Approved by: Earle Jackson MD on 08/03/2021 11:00 AM AKCHAR Station ID: [id number]
--- NOTE | 2021-08-03 12:34 | ED Physician Documentation ---
History of Present Illness - Stated complaint Stated Complaint: GLF - HEAD PX - Chief complaint Chief Complaint: Trauma Ext - History obtained from History obtained from: Patient, Family - Additonal information Additional information: Patient is brought to the emergency department by his son for chief complaint of ground-level fall this morning. He has dementia and does not remember the exact details or circumstances. Son states the patient was found down in the kitchen after his sister, who was at the house, heard a "crash". It appeared that the patient had either tripped or lost his balance. Patient has a history of being unsteady on his feet and has also had a right hip replacement with chronic pain and spasms in that extremity since. The patient did not appear to have lost consciousness. He is on Coumadin., For a cardiac valve replacement. Patient denies any headache or neck pain, but does note some vague left lower extremity pain which seems to localize to his hip. He was not ambulatory after the fall. No back pain. No rib pain. Review of Systems Ten Systems: 10 systems reviewed and negative Constitutional: reports: Reviewed and negative Eyes: reports: Reviewed and negative Ears: reports: Reviewed and negative Nose: reports: Reviewed and negative Throat: reports: Reviewed and negative Cardiac: reports: Reviewed and negative Respiratory: reports: Reviewed and negative GI: reports: Reviewed and negative : reports: Reviewed and negative Skin: reports: Reviewed and negative Musculoskeletal: reports: Reviewed and negative Neurologic: reports: Reviewed and negative Psychiatric: reports: Reviewed and negative Endocrine: reports: Reviewed and negative Immunocompromised: reports: Reviewed and negative PD PAST MEDICAL HISTORY - Past Medical History Cardiovascular: Congestive heart failure, Hypertension, High cholesterol, Coronary artery disease, Atrial fibrillation, Valve disorder Respiratory: None Neuro: Dementia Endocrine/Autoimmune: HyPOthyroidism GI: None : Kidney stones HEENT: Macular degeneration, Other Psych: None Musculoskeletal: Osteoarthritis Derm: None - Past Surgical History Past Surgical History: Yes General: Colonoscopy Ortho: Hip replacement Cardiovascular: Coronary stent, Valve replacement HEENT: Cataracts Derm: Skin cancer surgery - Present Medications Home Medications: Ambulatory Orders Medication Instructions Recorded Confirmed Losartan Potassium [Cozaar] 25 mg PO QPM 05/30/17 08/03/21 Simvastatin 20 mg PO QPM 05/30/17 08/03/21 Celecoxib [CeleBREX] 200 mg PO DAILY capsule 05/31/17 04/17/18 Carboxymethylcellulose Sodium 1 drops EACHEYE PRN PRN 04/17/18 04/17/18 [Refresh Tears] Digoxin 125 mcg PO QPM 04/17/18 08/03/21 Levothyroxine Sodium [Synthroid] 112 mcg PO QDAC 04/17/18 08/03/21 Warfarin Sodium 2.5 mg PO SUMOWEFR@209904/17/18 04/17/18 Warfarin Sodium 5 mg PO TUTHSA@209904/17/18 08/03/21 carvediloL [Carvedilol] 12.5 mg PO BID 04/17/18 04/17/18 levoFLOXacin [Levaquin] 750 mg PO DAILY #10 tablet 04/20/18 Donepezil [Aricept] 10 mg PO DAILY 08/03/21 08/03/21 Metoprolol Succinate [Toprol Xl] 1 tab PO DAILY 08/03/21 08/03/21 - Allergies Allergies/Adverse Reactions: Allergies Allergy/AdvReac Type Severity Reaction Status Date / Time amoxicillin trihydrate * Allergy Unknown Verified 08/03/21 11:37 [From Augmentin] potassium clavulanate * Allergy Unknown Verified 08/03/21 11:37 [From Augmentin] - Social History Does the pt smoke?: No Smoking Status: Never smoker Does the pt drink ETOH?: No Does the pt have substance abuse?: No - Immunizations Immunizations are current?: Yes - POLST Patient has POLST: No POLST Status: DNR Results - Vitals Vitals: Vital Signs - 24 hr 08/03/21 08/03/21 08/03/21 11:23 13:41 15:00 Temperature 37.2 C 37.0 C Heart Rate 72 80 80 Respiratory 23 19 20 Rate Blood Pressure 102/61 108/66 110/60 O2 Saturation 100 95 96 Oxygen O2 Source Room air - Rads (name of study) head CT Radiology: Final report received, EMP read indepedently, See rad report (nad) L hip/pelvis XR Radiology: Final report received, EMP read indepedently, See rad report (neg) R hand XR Radiology: Final report received, EMP read indepedently, See rad report (neg) L knee XR Radiology: Final report received, EMP read indepedently, See rad report (neg) PD MEDICAL DECISION MAKING - ED course Complexity details: reviewed old records, reviewed results, re-evaluated patient, considered differential, d/w patient, d/w family ED course: Pt was worked up with head CT, as well as x-rays of L hip/pelvis, L knee, and R hand, all of which were unremarkable. We have discussed symptomatic management at home, as well as the usual indications for return. Departure - Departure Disposition: 01 Home, Self Care Clinical Impression: Fall from ground level, Multiple contusions Condition: Stable Instructions: Falls Prevent Stay Active, Falls Preventing, ED Mechanical Fall Comments: The CT scan of the head, as well as x-rays of the left hip, pelvis, right hip, left knee, and right hand look good. There is no evidence of a serious injury today. If you feel that you need more help caring for Mr. Nava at home, you may speak with his primary doctor to try to arrange some care assistance. Discharge Date/Time: 08/03/21 15:30
--- NOTE | 2021-08-03 13:11 | XRAY Report ---
PROCEDURE: Hand 3 View RT INDICATIONS: pain/fall TECHNIQUE: 3 views of the hand(s) acquired. COMPARISON: None FINDINGS: Bones: There is prominent subluxation at the fifth PIP joint. Small ossification is noted adjacent to the joint space. No suspicious bony lesions. Diffuse IP changes are present. Soft tissues: No suspicious soft tissue calcifications. IMPRESSION: Small ossification adjacent to the fifth PIP joint space. Avulsion injury cannot be excluded. It is n oted that there is prominent subluxation of indeterminate age. Reviewed by: Nirali Palma MD on 08/03/2021 1:09 PM PDT Approved by: Nirali Palma MD on 08/03/2021 1:09 PM PDT Station ID: [id number]
[2021-08-03 15:12] VITALS: BP 110/60
--- NOTE | 2021-08-04 09:08 | XRAY Report ---
PROCEDURE: Knee 3 View LT INDICATIONS: Fall/pain TECHNIQUE: 2 views of the left knee(s) were acquired. COMPARISON: None. FINDINGS: BONES: No acute, displaced fracture or dislocation. The joint spaces are essentially maintained. Smal l tricompartment osteophytosis. SOFT TISSUES: Moderate subpatellar joint effusion. Vascular calcifications are seen. IMPRESSION: 1.No acute osseous abnormality. 2.Moderate suprapatellar joint effusion. Reviewed by: Serafin Reagan MD on 08/03/2021 1:10 PM PDT Approved by: Serafin Reagan MD on 08/03/2021 1:10 PM PDT Station ID: [id number]
--- NOTE | 2021-08-04 09:09 | XRAY Report ---
PROCEDURE: Hip w/Pelvis 2-3V LT INDICATIONS: Fall/pain TECHNIQUE: AP pelvis with lateral view(s) of the right hip(s). COMPARISON: None. FINDINGS: BONES: No acute, displaced fracture or dislocation. A right hip arthroplasty seems without evidence o f compromise. Small area of lucency in the right superior acetabulum, which may reflect fibrocystic c hange or synovial herniation. Productive change about the left greater trochanter. SOFT TISSUES: No focal abnormality. IMPRESSION: 1.No acute osseous abnormality. Reviewed by: Serafin Reagan MD on 08/03/2021 1:13 PM PDT Approved by: Serafin Reagan MD on 08/03/2021 1:13 PM PDT Station ID: [id number]
== END 2021-08-03 15:30 | disposition home or self-care (01) ==
LOC: ED 11:15
DX: S00.03XA Contusion of scalp, initial encounter (principal); W18.30XA Fall on same level, unspecified, initial encounter; Z91.81 History of falling; Z79.01 Long term (current) use of anticoagulants; I11.0 Hypertensive heart disease with heart failure; I50.9 Heart failure, unspecified; Z95.5 Presence of coronary angioplasty implant and graft
CPT/HCPCS: 99282; 99284

== ENCOUNTER 2021-08-05 10:10 | Outpatient (CLI) | payer MEDICARE, OTHER | END 2021-08-05 10:11 | disposition EMS.NT | LOC: EMS 10:10 | DX: Z03.89 Encounter for observation for other suspected diseases and conditions ruled out (principal) ==

== ENCOUNTER 2021-08-19 08:00 | Outpatient (CLI) | payer MEDICARE, OTHER | END 2021-08-19 23:59 | disposition home or self-care (01) | LOC: LAB.WCP 08:00 | PROVIDERS: ATTEND Internal Medicine | DX: I48.21 Permanent atrial fibrillation (principal); Z95.2 Presence of prosthetic heart valve; Z79.01 Long term (current) use of anticoagulants ==

== ENCOUNTER 2021-09-02 14:04 | Outpatient (CLI) | payer MEDICARE, OTHER ==
[2021-09-02 17:57] LABS: BASOPHILS # (AUTO) 0.1 10^3/uL (0.0-0.1); BASOPHILS % (AUTO) 0.9 %; EOSINOPHILS # (AUTO) 0.2 10^3/uL (0.0-0.7); EOSINOPHILS % (AUTO) 2.5 %; HCT - HEMATOCRIT 38.4 % (42.0-52.0); HGB - HEMOGLOBIN 12.4 g/dL (14.0-18.0); LYMPHOCYTES # (AUTO) 1.8 10^3/uL (1.5-3.5); LYMPHOCYTES % (AUTO) 22.3 %; MEAN CORPUSCULAR HEMOGLOBIN 31.7 pg (27.0-31.0); MEAN CORPUSCULAR HGB CONC 32.3 g/dL (32.0-36.0); MEAN CORPUSCULAR VOLUME 98.2 fL (80.0-94.0); MEAN PLATELET VOLUME 12.5 fL (7.4-11.4); MONOCYTES # (AUTO) 1.4 10^3/uL (0.0-1.0); MONOCYTES % (AUTO) 16.8 %; NEUTROPHILS # (AUTO) 4.6 10^3/uL (1.5-6.6); NEUTROPHILS % (AUTO) 57.3 %; PLT - PLATELET COUNT 268 10^3/uL (130-450); RED BLOOD COUNT 3.91 10^6/uL (4.70-6.10); RED CELL DISTRIBUTION WIDTH 14.5 % (12.0-15.0); WHITE BLOOD COUNT 8.1 x10^3/uL (4.8-10.8)
[2021-09-02 18:11] LABS: CALCIUM 9.2 mg/dL (8.5-10.3); CREATININE 1.3 mg/dL (0.6-1.2); POTASSIUM 3.9 mmol/L (3.5-5.0)
[2021-09-02 18:23] LABS: THYROID STIMULATING HORMONE 0.24 uIU/mL (0.34-5.60)
[2021-09-02 19:33] LABS: FREE T4 (FREE THYROXINE) 1.08 ng/dL (0.58-1.64)
== END 2021-09-02 14:05 | disposition home or self-care (01) ==
LOC: LAB.N 14:04
PROVIDERS: ATTEND Internal Medicine
DX: I25.5 Ischemic cardiomyopathy (principal); I48.21 Permanent atrial fibrillation
CPT/HCPCS: 36415; 80048; 84439; 84443; 85025

== ENCOUNTER 2021-10-02 08:00 | Outpatient (CLI) | payer MEDICARE, OTHER | END 2021-10-02 23:59 | disposition home or self-care (01) | LOC: LAB.WCP 08:00 | PROVIDERS: ATTEND Internal Medicine | DX: I48.21 Permanent atrial fibrillation (principal); Z95.2 Presence of prosthetic heart valve; Z86.79 Personal history of other diseases of the circulatory system; Z79.01 Long term (current) use of anticoagulants ==

== ENCOUNTER 2021-10-16 08:00 | Outpatient (CLI) | payer MEDICARE, OTHER | END 2021-10-16 23:59 | disposition home or self-care (01) | LOC: LAB.WCP 08:00 | PROVIDERS: ATTEND Internal Medicine | DX: I48.21 Permanent atrial fibrillation (principal); Z95.2 Presence of prosthetic heart valve; Z86.79 Personal history of other diseases of the circulatory system; Z79.01 Long term (current) use of anticoagulants ==

== ENCOUNTER 2021-11-24 16:48 | Outpatient (CLI) | payer MEDICARE, OTHER | END 2021-11-24 16:49 | disposition short-term general hospital (02) | LOC: EMS 16:48 | DX: Z04.3 Encounter for examination and observation following other accident (principal); M54.50 Low back pain, unspecified; M25.552 Pain in left hip | CPT/HCPCS: A0425; A0429 ==

== ENCOUNTER 2021-11-27 14:04 | Outpatient (CLI) | payer MEDICARE, OTHER | END 2021-11-27 14:05 | disposition critical access hospital (66) | LOC: EMS 14:04 | DX: R62.7 Adult failure to thrive (principal) | CPT/HCPCS: A0425; A0429 ==

== ENCOUNTER 2021-11-27 14:28 | Observation (INO) | payer MEDICARE, OTHER ==
--- NOTE | 2021-11-27 14:37 | ED Physician Documentation ---
History of Present Illness - Stated complaint Stated Complaint: HIP PX/POST FALL - History obtained from History obtained from: Patient, EMS - Additonal information Additional information: 89-year-old gentleman with dementia, atrial fibrillation on warfarin and digoxin, hypertension and hypothyroidism who lives at home. Comes in by ambulance, he was seen at [facility] 3 days ago after reported fall. Reports from [facility] reviewed. He was complaining of left hip pain. He was persistently tachycardic into the 120s but reportedly his son declined cardioversion. Reported to be at his baseline at this time. Labs were notable f or a white count of 12-1/2 with mild left shift, INR of 2.4, Covid PCR negative, bilirubin of 3.1,. X-ray of the left hip was done with arthritis and history of a right hip arthroplasty, no visualized fracture. CT of the head showed chronic changes only. CT of the C-spine showed chronic changes and stenosis without fracture. CT of the pelvis was done without fracture. CT of the lumbar spine was done without fracture. He was discharged home. Since going home basically he has been immobile, and his family cannot take care of him. As such he is brought in by ambulance now for potential placement. Minimal history is available from the patient, his only complaint is right lower quadrant right hip pain. Review of Systems Unable to obtain: Dementia PD PAST MEDICAL HISTORY - Past Medical History Cardiovascular: Congestive heart failure, Hypertension, High cholesterol, Coronary artery disease, Atrial fibrillation, Valve disorder Respiratory: None Neuro: Dementia Endocrine/Autoimmune: HyPOthyroidism GI: None : Kidney stones HEENT: Macular degeneration, Other Psych: None Musculoskeletal: Osteoarthritis Derm: None - Past Surgical History Past Surgical History: Yes General: Colonoscopy Ortho: Hip replacement Cardiovascular: Coronary stent, Valve replacement HEENT: Cataracts Derm: Skin cancer surgery - Present Medications Home Medications: Ambulatory Orders Medication Instructions Recorded Confirmed Losartan Potassium [Cozaar] 25 mg PO QPM 05/30/17 11/27/21 Simvastatin 20 mg PO QPM 05/30/17 11/27/21 Carboxymethylcellulose Sodium 1 drops EACHEYE PRN PRN 04/17/18 11/27/21 [Refresh Tears] Digoxin 125 mcg PO QPM 04/17/18 11/27/21 Levothyroxine Sodium [Synthroid] 112 mcg PO QDAC 04/17/18 11/27/21 Warfarin Sodium 2.5 mg PO SUMOWEFR@209904/17/18 11/27/21 Warfarin Sodium 5 mg PO TUTHSA@209904/17/18 11/27/21 Donepezil [Aricept] 10 mg PO DAILY 08/03/21 11/27/21 Metoprolol Succinate [Toprol Xl] 1 tab PO DAILY 08/03/21 11/27/21 - Allergies Allergies/Adverse Reactions: Allergies Allergy/AdvReac Type Severity Reaction Status Date / Time amoxicillin trihydrate * Allergy Unknown Verified 11/27/21 14:38 [From Augmentin] potassium clavulanate * Allergy Unknown Verified 11/27/21 14:38 [From Augmentin] - Social History Does the pt smoke?: No Smoking Status: Never smoker Does the pt drink ETOH?: No Does the pt have substance abuse?: No - Immunizations Immunizations are current?: Yes - POLST Patient has POLST: No POLST Status: DNR PD ED PE NORMAL - Vitals Vital signs reviewed: Yes - General General: Other (He is alert and oriented to person but not place time or events) - HEENT HEENT: PERRL, EOMI - Neck Neck: Supple, no meningeal sign, No bony TTP - Cardiac Cardiac: Other (Rapid and irregular without murmur) - Respiratory Respiratory: No respiratory distress, Clear bilaterally - Abdomen Abdomen: Normal bowel sounds, Soft, Other (Tender in the right lower quadrant without surgical signs) - Back Back: No CVA TTP, No spinal TTP - Derm Derm: Normal color, Warm and dry - Extremities Extremities: Other (Hips are not shortened or rotated but he does have significant pain with any rotation or flexion of the right hip.) - Neuro Neuro: No motor deficit, No sensory deficit, Normal speech Eye Opening: Spontaneous Motor: Obeys Commands Verbal: Confused GCS Score: 14 - Psych Psych: Normal mood, Normal affect Results - Vitals Vitals: Vital Signs - 24 hr 11/27/21 11/27/21 11/27/21 14:31 17:14 17:49 Temperature 36.3 C L 38.3 C H Heart Rate 85 98 90 Respiratory 20 20 20 Rate Blood Pressure 123/90 H 138/70 H 128/54 L O2 Saturation 93 92 11/27/21 11/27/21 11/27/21 18:00 18:30 20:00 Temperature 99.9 C H Heart Rate 81 91 72 Respiratory 20 16 22 Rate Blood Pressure 113/67 123/57 L 113/53 L O2 Saturation 95 92 92 Oxygen O2 Source Room air - Labs Labs: Laboratory Tests 11/27/21 11/27/21 11/27/21 14:42 14:42 14:42 WBC 21.2 H RBC 4.07 L Hgb 12.7 L Hct 37.9 L MCV 93.1 MCH 31.2 H MCHC 33.5 RDW 13.8 Plt Count 307 MPV 11.5 H Neut # (Auto) 16.4 H Lymph # (Auto) 1.2 L [place] # (Auto) 3.4 H Eos # (Auto) 0.0 Baso # (Auto) 0.1 Absolute Nucleated RBC 0.00 Nucleated RBC % 0.0 Manual Slide Review Indicated Platelet Estimate NORMAL (130-450,000) Platelet Morphology NORMAL APPEARANCE RBC Morph Micro Appear NORMAL APPEARANCE PT 46.6 H INR 4.2 H Sodium 135 Potassium 3.9 Chloride 100 L Carbon Dioxide 21 Anion Gap 14.0 H BUN 19 Creatinine 1.6 H Estimated GFR (MDRD) 41 L Glucose 161 H Lactic Acid Calcium 9.3 B-Natriuretic Peptide Urine Color Urine Clarity Urine pH Ur Specific Gilbert Urine Protein Urine Glucose (UA) Urine Ketones Urine Occult Blood Urine Nitrite Urine Bilirubin Urine Urobilinogen Ur Leukocyte Esterase Urine RBC Urine WBC Ur Squamous Epith Cells Urine Bacteria Ur Microscopic Review Urine Culture Comments Nasal Adenovirus (PCR) Nasal B. parapertussis DNA (PCR) Nasal Coronavir 229E PCR Nasal Coronavir HKU1 PCR Nasal Coronavir NL63 PCR Nasal Coronavir OC43 PCR Nasal Enterovir/Rhinovir PCR Nasal Influenza B PCR Nasal Influenza A PCR Nasal Parainfluen 1 PCR Nasal Parainfluen 2 PCR Nasal Parainfluen 3 PCR Nasal Parainfluen 4 PCR Nasal RSV (PCR) Nasal B.pertussis DNA PCR Nasal C.pneumoniae (PCR) Familia Human Metapneumo PCR Nasal M.pneumoniae (PCR) Nasal SARS-CoV-2 (PCR) Last Dose Date Not Reportable Last Dose Time Not Reportable Digoxin 0.2 11/27/21 11/27/21 11/27/21 17:10 17:38 17:45 WBC RBC Hgb Hct MCV MCH MCHC RDW Plt Count MPV Neut # (Auto) Lymph # (Auto) [place] # (Auto) Eos # (Auto) Baso # (Auto) Absolute Nucleated RBC Nucleated RBC % Manual Slide Review Platelet Estimate Platelet Morphology RBC Morph Micro Appear PT INR Sodium Potassium Chloride Carbon Dioxide Anion Gap BUN Creatinine Estimated GFR (MDRD) Glucose Lactic Acid Calcium B-Natriuretic Peptide 606 H Urine Color DARK YELLOW Urine Clarity HAZY Urine pH 5.0 Ur Specific Gilbert 1.025 Urine Protein 30 H Urine Glucose (UA) NEGATIVE Urine Ketones TRACE Urine Occult Blood MODERATE H Urine Nitrite NEGATIVE Urine Bilirubin NEGATIVE Urine Urobilinogen 0.2 (NORMAL) Ur Leukocyte Esterase NEGATIVE Urine RBC 6-10 H Urine WBC 0-3 Ur Squamous Epith Cells FEW Squamous Urine Bacteria None Seen Ur Microscopic Review INDICATED Urine Culture Comments NOT INDICATED Nasal Adenovirus (PCR) NOT DETECTED Nasal B. parapertussis DNA (PCR) NOT DETECTED Nasal Coronavir 229E PCR NOT DETECTED Nasal Coronavir HKU1 PCR NOT DETECTED Nasal Coronavir NL63 PCR NOT DETECTED Nasal Coronavir OC43 PCR NOT DETECTED Nasal Enterovir/Rhinovir PCR NOT DETECTED Nasal Influenza B PCR NOT DETECTED Nasal Influenza A PCR NOT DETECTED Nasal Parainfluen 1 PCR NOT DETECTED Nasal Parainfluen 2 PCR NOT DETECTED Nasal Parainfluen 3 PCR NOT DETECTED Nasal Parainfluen 4 PCR NOT DETECTED Nasal RSV (PCR) NOT DETECTED Nasal B.pertussis DNA PCR NOT DETECTED Nasal C.pneumoniae (PCR) NOT DETECTED Familia Human Metapneumo PCR NOT DETECTED Nasal M.pneumoniae (PCR) NOT DETECTED Nasal SARS-CoV-2 (PCR) NOT DETECTED Last Dose Date Last Dose Time Digoxin 11/27/21 17:45 WBC RBC Hgb Hct MCV MCH MCHC RDW Plt Count MPV Neut # (Auto) Lymph # (Auto) [place] # (Auto) Eos # (Auto) Baso # (Auto) Absolute Nucleated RBC Nucleated RBC % Manual Slide Review Platelet Estimate Platelet Morphology RBC Morph Micro Appear PT INR Sodium Potassium Chloride Carbon Dioxide Anion Gap BUN Creatinine Estimated GFR (MDRD) Glucose Lactic Acid 1.9 Calcium B-Natriuretic Peptide Urine Color Urine Clarity Urine pH Ur Specific [place] Urine Protein Urine Glucose (UA) Urine Ketones Urine Occult Blood Urine Nitrite Urine Bilirubin Urine Urobilinogen Ur Leukocyte Esterase Urine RBC Urine WBC Ur Squamous Epith Cells Urine Bacteria Ur Microscopic Review Urine Culture Comments Nasal Adenovirus (PCR) Nasal B. parapertussis DNA (PCR) Nasal Coronavir 229E PCR Nasal Coronavir HKU1 PCR Nasal Coronavir NL63 PCR Nasal Coronavir OC43 PCR Nasal Enterovir/Rhinovir PCR Nasal Influenza B PCR Nasal Influenza A PCR Nasal Parainfluen 1 PCR Nasal Parainfluen 2 PCR Nasal Parainfluen 3 PCR Nasal Parainfluen 4 PCR Nasal RSV (PCR) Nasal B.pertussis DNA PCR Nasal C.pneumoniae (PCR) Familia Human Metapneumo PCR Nasal M.pneumoniae (PCR) Nasal SARS-CoV-2 (PCR) Last Dose Date Last Dose Time Digoxin - Rads (name of study) 1v cxr Radiology: EMP read contemporaneously (Bibasilar interstitial airspace infiltrates consistent with pulmonary edema due to CHF without obvious pneumonia) CT abdomen and pelvis Radiology: EMP read contemporaneously (Cholelithiasis, left renal cyst, small bilateral pleural effusions and bibasilar atelectasis, atherosclerosis) PD MEDICAL DECISION MAKING - ED course ED course: 89-year-old gentleman initially comes in for placement, he has been dwindling very acutely over the last few days after a fall where he was seen at [facility], see above notes in the H&P. During his stay, he was noted to have an significantly elevated white count at 21,000, it was only 12,000 the other day at [facility], his creatinine has gone up from 1.3-1.6 or so. And at 5:15 PM he was noted to be febrile which is also his sepsis time of onset time. Source of sepsis is unknown, he has a benign belly and his urine is clear. Chest x-ray without obvious pneumonia. He was cultured up and I ordered cefepime, Flagyl, and vancomycin. I discussed this with the and the son, the sons at the bedside and the by phone. It seems the whole family feels like the patient is at the end of his life and he has been talking about dying and saying goodbye for quite some time. We discussed whether they would like treatment with broad-spectrum antibiotics and they would like to think about it but are leaning towards no and as such I asked the nurse to hold antibiotics until we have a more definitive treatment plan regarding goals of care. Family considered and they do not want antibiotics. Plan to transition to comfort care. His pain still seem fairly bad in the hips is even after oral Tylenol and he was unable to move, he was given a small dose of IV morphine. I spoke with Dr. Ballesteros for admission and she would like to talk to the first and confirm the goals of care. - Sepsis Event Sepsis Onset Date: 11/27/21 Sepsis Onset Time: 17:15 Current Stage of Sepsis: Sepsis Initial Hypotension: Not hypotensive Possible source of Sepsis: Unknown Mental/Cognitive Status: Normal for patient, Confused Reason for not giving 30ml/kg crystalloid fluids: Not in septic shock Capillary refill: Less than 2 seconds Peripheral Pulse Strength: 2+ Slightly Diminished Peripheral Pulse Location: Radial Bedside ultrasound performed: No Departure - Departure Clinical Impression: Comfort measures only status, Hip pain, bilateral, Supratherapeutic INR Sepsis Qualifiers: Sepsis type: sepsis due to unspecified organism Sepsis acute organ dysfunction status: with acute organ dysfunction Severe sepsis acute organ dysfunction type: encephalopathy Condition: Serious
[2021-11-27 14:47] LABS: BASOPHILS # (AUTO) 0.1 10^3/uL (0.0-0.1); BASOPHILS % (AUTO) 0.2 %; HCT - HEMATOCRIT 37.9 % (42.0-52.0); HGB - HEMOGLOBIN 12.7 g/dL (14.0-18.0); LYMPHOCYTES # (AUTO) 1.2 10^3/uL (1.5-3.5); LYMPHOCYTES % (AUTO) 5.4 %; MEAN CORPUSCULAR HEMOGLOBIN 31.2 pg (27.0-31.0); MEAN CORPUSCULAR HGB CONC 33.5 g/dL (32.0-36.0); MEAN CORPUSCULAR VOLUME 93.1 fL (80.0-94.0); MEAN PLATELET VOLUME 11.5 fL (7.4-11.4); MONOCYTES # (AUTO) 3.4 10^3/uL (0.0-1.0); MONOCYTES % (AUTO) 16.2 %; NEUTROPHILS # (AUTO) 16.4 10^3/uL (1.5-6.6); NEUTROPHILS % (AUTO) 77.3 %; PLT - PLATELET COUNT 307 10^3/uL (130-450); RED BLOOD COUNT 4.07 10^6/uL (4.70-6.10); RED CELL DISTRIBUTION WIDTH 13.8 % (12.0-15.0); WHITE BLOOD COUNT 21.2 x10^3/uL (4.8-10.8)
[2021-11-27 14:50] LABS: SLIDE REVIEW? Indicated
[2021-11-27 14:52] LABS: INR 4.2 (0.8-1.2); PT - PROTHROMBIN TIME 46.6 secs (9.9-12.6)
[2021-11-27 15:06] LABS: BUN - BLOOD UREA NITROGEN 19 mg/dL (6-20); CALCIUM 9.3 mg/dL (8.5-10.3); CARBON DIOXIDE - CO2 21 mmol/L (21-32); CHLORIDE 100 mmol/L (101-111); CREATININE 1.6 mg/dL (0.6-1.2); DIGOXIN 0.2 ng/mL; GFR - MDRD 41 (>89); GLUCOSE 161 mg/dL (70-100); POTASSIUM 3.9 mmol/L (3.5-5.0); SODIUM 135 mmol/L (135-145)
[2021-11-27 15:28] LABS: PLATELET MORPHOLOGY NORMAL APPEARANCE (NORMAL); RBC MORPHOLOGY (MULTIPLE) NORMAL APPEARANCE (NORMAL)
[2021-11-27 15:29] LABS: PLATELET ESTIMATE, MANUAL NORMAL (130-450,000) (NORMAL)
--- NOTE | 2021-11-27 15:39 | CT Report ---
PROCEDURE: Abdomen/Pelvis WO INDICATIONS: RLQ pain TECHNIQUE: Noncontrast 5 mm thick sections acquired from the diaphragms to the symphysis. 5 mm coronal and sagi ttal reformats were then performed. For radiation dose reduction, the following was used: automated exposure control, adjustment of mA and/or kV according to patient size. COMPARISON: None. FINDINGS: Image quality: Excellent. ABDOMEN: Lung bases: Small bilateral pleural effusion and adjacent dependent atelectasis in posterior aspect o f bilateral lung bases are seen. Heart size is enlarged, no pericardial effusion. Small hiatal hernia is seen. Moderate atherosclerotic disease in coronary vessels is seen. Solid organs: Liver and spleen are normal in size. A calcified stone is seen in dependent portion of gallbladder lumen. No gross gallbladder wall thickening or pericholecystic fluid. Pancreas is normal in contours. No adrenal nodules. Kidneys are normal in size, without hydronephrosis or nephrolithi asis. 2.7 cm cyst in anterolateral cortex of mid pole left kidney is seen. Peritoneum and bowel: Unenhanced bowel loops demonstrate normal wall thickness and caliber. Appendix is visualized in right lower quadrant and is normal in size and appearance. Mild colonic diverticulo sis is seen, no CT evidence of acute diverticulitis. No free fluid or air. Nodes and vessels: No retroperitoneal or mesenteric adenopathy by size criteria. Aorta and inferior vena cava are normal in caliber. Moderate atherosclerotic calcifications throughout abdominal aorta is noted extending to bilateral iliac arteries. Miscellaneous: No ventral hernias. PELVIS: Genitourinary: Bladder wall thickness is normal. Miscellaneous: No inguinal hernias or adenopathy. Bones: No suspicious bony lesions. Minimal anterolisthesis of L4 on L5 is seen. Degenerative endpla te changes are noted throughout lumbar spine. No vertebral body compression fractures. Patient is st atus post right total hip arthroplasty with significant beam hardening artifact. No gross hardware lo osening or failure is seen. IMPRESSION: 1. Normal appendix. No bowel obstruction or abnormal bowel wall thickening. No free fluid of free air . Sigmoid diverticulosis without evidence of acute diverticulitis. Small hiatal hernia. 2. Left renal cyst. No renal stone or hydronephrosis. 3. Cholelithiasis without CT evidence of acute cholecystitis. 4. Small bilateral pleural effusion and adjacent bibasilar dependent atelectasis. 5. Moderate atherosclerotic disease. Reviewed by: Sarbjit Saenz MD on 11/27/2021 3:38 PM PST Approved by: Sarbjit Saenz MD on 11/27/2021 3:38 PM PST Station ID: [id number]
--- NOTE | 2021-11-27 17:17 | XRAY Report ---
PROCEDURE: Chest 1 View X-Ray INDICATIONS: luekocytosis TECHNIQUE: One view of the chest was acquired. COMPARISON: None. FINDINGS: Surgical changes and devices: Sternotomy and CABG. Lungs and pleura: Bilateral interstitial and the airspace infiltrates compatible with pulmonary marley a secondary to congestive heart failure. No focal consolidation or pleural effusions. No pneumothorax . Mediastinum: Mediastinal contours appear normal. Heart size is increased. Bones and chest wall: No suspicious bony lesions. Overlying soft tissues appear unremarkable. Old right clavicular shaft fracture is suspected. IMPRESSION: 1. Bilateral interstitial and airspace infiltrates compatible with pulmonary edema secondary to conge stive heart failure. 2. No definitive radiographic evidence for pneumonia. Reviewed by: Jonn Gaviria MD on 11/27/2021 5:16 PM PST Approved by: Jonn Gaviria MD on 11/27/2021 5:16 PM PST Station ID: [id number]
[2021-11-27 17:21] LABS: BILIRUBIN,URINE NEGATIVE (NEGATIVE); GLUCOSE, URINE (UA) NEGATIVE (NEGATIVE); KETONES,URINE (UA) TRACE mg/dL (NEGATIVE); LEUKOCYTE ESTERASE, URINE NEGATIVE (NEGATIVE); NITRITE,URINE NEGATIVE (NEGATIVE); OCCULT BLOOD,URINE MODERATE (NEGATIVE); PROTEIN,URINE 30 mg/dL (NEGATIVE); UROBILINOGEN,URINE 0.2 (NORMAL) E.U./dL (NORMAL)
[2021-11-27 17:22] LABS: CLARITY,URINE HAZY (CLEAR)
[2021-11-27] MEDS ORDERED: metroNIDAZOLE 500 MG/100 ML 500 MG/100 ML BAG IV STA (17:29)
[2021-11-27] MEDS ORDERED: VANCOMYCIN INJ 1.75 GM in SODIUM CHLORIDE 0.9% 500 ML IV STA (17:29)
[2021-11-27] MEDS ORDERED: CEFEPIME 2 GM in SODIUM CHLORIDE 0.9% MINIBAG 100 ML IV STA (17:29)
[2021-11-27 17:30] LABS: BACTERIA,URINE None Seen /HPF (None Seen); SQUAMOUS EPITHELIAL CELL,UR FEW Squamous (<= Few); WBC,URINE 0-3 /HPF (0-3)
[2021-11-27] MEDS ORDERED: ACETAMINOPHEN 325 MG TABLET PO STA (17:30)
[2021-11-27 19:03] LABS: B. PARAPERTUSSIS- RESP PCR PAN NOT DETECTED; B. PERTUSSIS- RESP PCR PANEL NOT DETECTED; C. PNEUMONIAE- RESP PCR PANEL NOT DETECTED; CORONAVIRUS 229E-RESP PCR NOT DETECTED; CORONAVIRUS HKU1-RESP PCR NOT DETECTED; CORONAVIRUS NL63-RESP PCR NOT DETECTED; CORONAVIRUS OC43-RESP PCR NOT DETECTED; HUMAN METAPNEUMOVIRUS NOT DETECTED; INFLUENZA A- RESP PCR PANEL NOT DETECTED; INFLUENZA B - RESP PCR PANEL NOT DETECTED; M. PNEUMONIAE- RESP PCR PANEL NOT DETECTED; PARAINFLUENZA VIRUS 1 NOT DETECTED; PARAINFLUENZA VIRUS 2 NOT DETECTED; PARAINFLUENZA VIRUS 3 NOT DETECTED; PARAINFLUENZA VIRUS 4 NOT DETECTED; RHINOVIRUS/ENTEROVIRUS NOT DETECTED; RSV- RESP PCR PANEL NOT DETECTED; SARS-CoV-2 -RESP PCR PANEL NOT DETECTED
[2021-11-27] MEDS ORDERED: ONDANSETRON 4 MG/2 ML VIAL IVP PRN (21:26)
[2021-11-27] MEDS ORDERED: HALOPERIDOL 5 MG/ML VIAL IVP PRN (21:26)
[2021-11-27] MEDS ORDERED: ACETAMINOPHEN 160 MG/5 ML SUSP UDC PO PRN (21:26)
[2021-11-27] MEDS ORDERED: METOCLOPRAMIDE 10 MG/2 ML VIAL IVP PRN (21:26)
[2021-11-27] MEDS ORDERED: MINERAL OIL/PETROLAT OPHTH OINT EACHEYE PRN (21:26)
[2021-11-27] MEDS ORDERED: GI COCKTAIL 120 ML BOTTLE PO PRN (21:26)
[2021-11-27] MEDS: MORPHINE 2 MG/ML CARPUJECT IVP STA ×2 (21:33→21:34)
--- NOTE | 2021-11-27 22:15 | HISTORY & PHYSICAL EXAMINATION ---
History of Present Illness - Admitted From Referring Provider: Dr. Bi Gipson Referral Reason: Altered mental status, frequent falls, uncontrolled pain - History Obtained From Records Reviewed: RN notes reviewed, Old records reviewed, Other (ER MD sign out) History obtained from: Family, Other (Patient was pleasantly confused and could not provide meaningful history) - History of Present Illness Severity at the worst: reports: Severe (Severe pain at hip when moves or ambulates) Pain Quality: reports: Other (Patient has dementia and unable to verbalize his c omplaint however he is uncomfortable, unable to ambulate and noted with worsening confusion/delirium) Context-Pain started w/: reports: Movement, Position Timing: reports: Intermittent Duration: reports: Days: (3 days) Improved with: reports: Rest Worsened by: reports: Movement Associated symptoms: reports: Diaphoresis, Nausea, General Weakness, Other (Inability to ambulate and worsening confusion) HPI Comment/Other: The patient is an 89-year-old white male with past medical history of advancing dementia, hypertension, chronic kidney disease, atrial fibrillation, mechanical aortic valve/on Coumadin anticoagulation, with history of CHF, coronary artery disease and hypothyroidism. He lives with his elderly , requires full care, family reporting that the patient has been experiencing gradual but steady functional decline which has been somewhat accelerated in the past few weeks. Patient developed worsening confusion, generalized weakness and difficulty ambulating. Trying to get to the bathroom he suffered multiple falls and about 3 days ago he injured his left hip developing intense hip pain and subsequently being unable to ambulate. He was taken to [facility] where he was thoroughly evaluated and was found with no acute abnormality. Notably, he underwent CT scan of the hip and pelvis which ruled out fracture. He was Covid negative. Was described tachycardic with A. fib RVR however the family at that time declined further intervention. The patient was brought to [facility] ER on the evening of November 27 and was found with septic physiology, fever, tachycardia and organ dysfunction including worsening renal failure. Worsening encephalopathy could also be considered as organ dysfunction. He was Covid negative. White blood cell count increased from being 12, 3 days ago to be 21 this time. Urine analysis was negative. Chest x-ray did not show infiltrate. Repeat imaging including abdomen did not show acute abnormality. Admission initiated for sepsis and empiric antibiotic ordered, however family, including patient's son and in agreement, requested comfort care. On exam the patient appeared tachycardic, fidgeting, uncomfortable and confused however had difficulty verbalizing his complaints. He was not oriented to context, place or time, could not discuss present complaints or meaningful history. He is being admitted under comfort care. PMH/PSH - Past Medical History Cardiovascular: positive: Congestive heart failure, Hypertension, High cholesterol, Coronary artery disease, Atrial fibrillation, Valve disorder Respiratory: positive: None Neuro: positive: Dementia Endocrine/Autoimmune: positive: HyPOthyroidism GI: positive: None : positive: Kidney stones HEENT: positive: Macular degeneration, Other Psych: positive: None Musculoskeletal: positive: Osteoarthritis Derm: positive: None MRSA Hx?: No - Past Surgical History General: positive: Colonoscopy Ortho: positive: Hip replacement Cardiovascular: positive: Coronary stent, Valve replacement HEENT: positive: Cataracts Derm: positive: Skin cancer surgery Social & Family Hx - Living Situation Living Arrangement: At home Living Situation: With spouse/s.o. - Social History Does the pt smoke?: No Smoking Status: Never smoker (Used to smoke a pipe occasionally) Does the pt drink ETOH?: No Does the pt have substance abuse?: No - POLST Patient has POLST: No POLST Status: DNR (Family/, power of divorce attorney requesting comfort measures only) Meds/Allgy - Home Medications Home Medications: Ambulatory Orders Medication Instructions Recorded Confirmed Losartan Potassium [Cozaar] 25 mg PO QPM 05/30/17 11/27/21 Simvastatin 20 mg PO QPM 05/30/17 11/27/21 Carboxymethylcellulose Sodium 1 drops EACHEYE PRN PRN 04/17/18 11/27/21 [Refresh Tears] Digoxin 125 mcg PO QPM 04/17/18 11/27/21 Levothyroxine Sodium [Synthroid] 112 mcg PO QDAC 04/17/18 11/27/21 Warfarin Sodium 2.5 mg PO SUMOWEFR@209904/17/18 11/27/21 Warfarin Sodium 5 mg PO TUTHSA@209904/17/18 11/27/21 Donepezil [Aricept] 10 mg PO DAILY 08/03/21 11/27/21 Metoprolol Succinate [Toprol Xl] 1 tab PO DAILY 08/03/21 11/27/21 - Allergies Allergies/Adverse Reactions: Allergies Allergy/AdvReac Type Severity Reaction Status Date / Time amoxicillin trihydrate * Allergy Unknown Verified 11/27/21 14:38 [From Augmentin] potassium clavulanate * Allergy Unknown Verified 11/27/21 14:38 [From Augmentin] Review of Systems - Constitutional Constitutional: reports: Fatigue, Fever, Malaise, Weakness, Diaphoresis, Other (For complaints and review medical records reviewed and family interviewed. The patient had altered mental status and was unable to verbalize his complaints.) - All Other Systems All Other Systems: reports: Other (12 system review attempted, patient was unable to meaningfully discuss his symptoms.) Prior Level of Functionality: Patient has dementia and has been undergoing steady functional decline. He lives with his elderly and has friends and family members who recently have assisted with patient's care. There is no in-home caregiver or any other care support regularly available. Patient requires assistance to get out of bed or to ambulate. He needs constant redirection, assistance with meals, dressing, bathing and all activities of daily living. Exam - Vital Signs Vital Signs: Vital Signs x48h Temp Pulse Resp BP Pulse Ox 11/27/21 20:00 72 22 113/53 L 92 11/27/21 18:30 99.9 C H 91 16 123/57 L 92 11/27/21 18:00 81 20 113/67 95 11/27/21 17:49 90 20 128/54 L 11/27/21 17:14 38.3 C H 98 20 138/70 H 92 11/27/21 14:31 36.3 C L 85 20 123/90 H 93 - Physical Exam General Appearance: positive: No acute distress, Other (Well-developed elderly male pleasantly confused and becomes anxious when asked questions) Eyes Bilateral: positive: Normal inspection ENT: positive: Dry mucous membranes Neck: positive: Nml inspection Respiratory: positive: Chest non-tender, No respiratory distress, Breath sounds nml Cardiovascular: positive: Other (Irregular rate with mechanical valve click) Abdomen: positive: Non-tender, Nml bowel sounds Skin: positive: Diaphoresis, Pallor Neurologic/Psychiatric: positive: CN's nml (2-12), Disoriented to person, Disoriented to place, Disoriented to time Palliative Care Assessment - ESAS Numerical Scale Pain Scale: 5 (Unable to move much due to hip pain however unable to verbalize complaints) Fatigue Scale: 9 (Patient reports sleeping all day) Nausea Scale: 0 - No nausea Depression Scale: 2 Anxiety Scale: 5 (Gets anxious when questions asked) Other Scale: 8 (Confused, only oriented to self) Completed By: positive: Patient Palliative Performance Scale - Ambulation Ambulation: Mainly in bed - 40% - Activity and Evidence of Disease Activity & Evidence of Disease: Unable to do any activity. Extensive disease - 20% - Self-Care Self-Care: Total care - 30% - Intake Intake: Normal or reduced - 70% - Concious Level Concious Level: Full or confusion - 60% Results - Results Fish Bones: 11/27/21 14:42 11/27/21 14:42 Other Lab Results: Lab Results x24hrs 11/27/21 11/27/21 11/27/21 Range/Units 17:45 17:45 17:38 WBC (4.8-10.8) x10^3/uL RBC (4.70-6.10) 10^6/uL Hgb (14.0-18.0) g/dL Hct (42.0-52.0) % MCV (80.0-94.0) fL MCH (27.0-31.0) pg MCHC (32.0-36.0) g/dL RDW (12.0-15.0) % Plt Count (130-450) 10^3/uL MPV (7.4-11.4) fL Neut # (Auto) (1.5-6.6) 10^3/uL Lymph # (Auto) (1.5-3.5) 10^3/uL [place] # (Auto) (0.0-1.0) 10^3/uL Eos # (Auto) (0.0-0.7) 10^3/uL Baso # (Auto) (0.0-0.1) 10^3/uL Absolute Nucleated RBC x10^3/uL Nucleated RBC % /100WBC Manual Slide Review Platelet Estimate (NORMAL) Platelet Morphology (NORMAL) RBC Morph Micro Appear (NORMAL) PT (9.9-12.6) secs INR (0.8-1.2) Sodium (135-145) mmol/L Potassium (3.5-5.0) mmol/L Chloride (101-111) mmol/L Carbon Dioxide (21-32) mmol/L Anion Gap (6-13) BUN (6-20) mg/dL Creatinine (0.6-1.2) mg/dL Estimated GFR (MDRD) (>89) Glucose (70-100) mg/dL Lactic Acid 1.9 (0.5-2.2) mmol/L Calcium (8.5-10.3) mg/dL B-Natriuretic Peptide 606 H (5-100) pg/mL Urine Color Urine Clarity (CLEAR) Urine pH (5.0-7.5) PH Ur Specific [place] (1.002-1.030) Urine Protein (NEGATIVE) mg/dL Urine Glucose (UA) (NEGATIVE) mg/dL Urine Ketones (NEGATIVE) mg/dL Urine Occult Blood (NEGATIVE) Urine Nitrite (NEGATIVE) Urine Bilirubin (NEGATIVE) Urine Urobilinogen (NORMAL) E.U./dL Ur Leukocyte Esterase (NEGATIVE) Urine RBC (0-5) /HPF Urine WBC (0-3) /HPF Ur Squamous Epith Cells (<= Few) Urine Bacteria (None Seen) /HPF Ur Microscopic Review Urine Culture Comments Nasal Adenovirus (PCR) NOT DETECTED Nasal B. parapertussis DNA (PCR) NOT DETECTED Nasal Coronavir 229E PCR NOT DETECTED Nasal Coronavir HKU1 PCR NOT DETECTED Nasal Coronavir NL63 PCR NOT DETECTED Nasal Coronavir OC43 PCR NOT DETECTED Nasal Enterovir/Rhinovir PCR NOT DETECTED Nasal Influenza B PCR NOT DETECTED Nasal Influenza A PCR NOT DETECTED Nasal Parainfluen 1 PCR NOT DETECTED Nasal Parainfluen 2 PCR NOT DETECTED Nasal Parainfluen 3 PCR NOT DETECTED Nasal Parainfluen 4 PCR NOT DETECTED Nasal RSV (PCR) NOT DETECTED Nasal B.pertussis DNA PCR NOT DETECTED Nasal C.pneumoniae (PCR) NOT DETECTED Familia Human Metapneumo PCR NOT DETECTED Nasal M.pneumoniae (PCR) NOT DETECTED Nasal SARS-CoV-2 (PCR) NOT DETECTED Last Dose Date Last Dose Time Digoxin ng/mL 11/27/21 11/27/21 11/27/21 Range/Units 17:10 14:42 14:42 WBC (4.8-10.8) x10^3/uL RBC (4.70-6.10) 10^6/uL Hgb (14.0-18.0) g/dL Hct (42.0-52.0) % MCV (80.0-94.0) fL MCH (27.0-31.0) pg MCHC (32.0-36.0) g/dL RDW (12.0-15.0) % Plt Count (130-450) 10^3/uL MPV (7.4-11.4) fL Neut # (Auto) (1.5-6.6) 10^3/uL Lymph # (Auto) (1.5-3.5) 10^3/uL [place] # (Auto) (0.0-1.0) 10^3/uL Eos # (Auto) (0.0-0.7) 10^3/uL Baso # (Auto) (0.0-0.1) 10^3/uL Absolute Nucleated RBC x10^3/uL Nucleated RBC % /100WBC Manual Slide Review Platelet Estimate (NORMAL) Platelet Morphology (NORMAL) RBC Morph Micro Appear (NORMAL) PT 46.6 H (9.9-12.6) secs INR 4.2 H (0.8-1.2) Sodium 135 (135-145) mmol/L Potassium 3.9 (3.5-5.0) mmol/L Chloride 100 L (101-111) mmol/L Carbon Dioxide 21 (21-32) mmol/L Anion Gap 14.0 H (6-13) BUN 19 (6-20) mg/dL Creatinine 1.6 H (0.6-1.2) mg/dL Estimated GFR (MDRD) 41 L (>89) Glucose 161 H (70-100) mg/dL Lactic Acid (0.5-2.2) mmol/L Calcium 9.3 (8.5-10.3) mg/dL B-Natriuretic Peptide (5-100) pg/mL Urine Color DARK YELLOW Urine Clarity HAZY (CLEAR) Urine pH 5.0 (5.0-7.5) PH Ur Specific [place] 1.025 (1.002-1.030) Urine Protein 30 H (NEGATIVE) mg/dL Urine Glucose (UA) NEGATIVE (NEGATIVE) mg/dL Urine Ketones TRACE (NEGATIVE) mg/dL Urine Occult Blood MODERATE H (NEGATIVE) Urine Nitrite NEGATIVE (NEGATIVE) Urine Bilirubin NEGATIVE (NEGATIVE) Urine Urobilinogen 0.2 (NORMAL) (NORMAL) E.U./dL Ur Leukocyte Esterase NEGATIVE (NEGATIVE) Urine RBC 6-10 H (0-5) /HPF Urine WBC 0-3 (0-3) /HPF Ur Squamous Epith Cells FEW Squamous (<= Few) Urine Bacteria None Seen (None Seen) /HPF Ur Microscopic Review INDICATED Urine Culture Comments NOT INDICATED Nasal Adenovirus (PCR) Nasal B. parapertussis DNA (PCR) Nasal Coronavir 229E PCR Nasal Coronavir HKU1 PCR Nasal Coronavir NL63 PCR Nasal Coronavir OC43 PCR Nasal Enterovir/Rhinovir PCR Nasal Influenza B PCR Nasal Influenza A PCR Nasal Parainfluen 1 PCR Nasal Parainfluen 2 PCR Nasal Parainfluen 3 PCR Nasal Parainfluen 4 PCR Nasal RSV (PCR) Nasal B.pertussis DNA PCR Nasal C.pneumoniae (PCR) Familia Human Metapneumo PCR Nasal M.pneumoniae (PCR) Nasal SARS-CoV-2 (PCR) Last Dose Date Not Reportable Last Dose Time Not Reportable Digoxin 0.2 ng/mL 11/27/21 Range/Units 14:42 WBC 21.2 H (4.8-10.8) x10^3/uL RBC 4.07 L (4.70-6.10) 10^6/uL Hgb 12.7 L (14.0-18.0) g/dL Hct 37.9 L (42.0-52.0) % MCV 93.1 (80.0-94.0) fL MCH 31.2 H (27.0-31.0) pg MCHC 33.5 (32.0-36.0) g/dL RDW 13.8 (12.0-15.0) % Plt Count 307 (130-450) 10^3/uL MPV 11.5 H (7.4-11.4) fL Neut # (Auto) 16.4 H (1.5-6.6) 10^3/uL Lymph # (Auto) 1.2 L (1.5-3.5) 10^3/uL [place] # (Auto) 3.4 H (0.0-1.0) 10^3/uL Eos # (Auto) 0.0 (0.0-0.7) 10^3/uL Baso # (Auto) 0.1 (0.0-0.1) 10^3/uL Absolute Nucleated RBC 0.00 x10^3/uL Nucleated RBC % 0.0 /100WBC Manual Slide Review Indicated Platelet Estimate NORMAL (130-450,000) (NORMAL) Platelet Morphology NORMAL APPEARANCE (NORMAL) RBC Morph Micro Appear NORMAL APPEARANCE (NORMAL) PT (9.9-12.6) secs INR (0.8-1.2) Sodium (135-145) mmol/L Potassium (3.5-5.0) mmol/L Chloride (101-111) mmol/L Carbon Dioxide (21-32) mmol/L Anion Gap (6-13) BUN (6-20) mg/dL Creatinine (0.6-1.2) mg/dL Estimated GFR (MDRD) (>89) Glucose (70-100) mg/dL Lactic Acid (0.5-2.2) mmol/L Calcium (8.5-10.3) mg/dL B-Natriuretic Peptide (5-100) pg/mL Urine Color Urine Clarity (CLEAR) Urine pH (5.0-7.5) PH Ur Specific [place] (1.002-1.030) Urine Protein (NEGATIVE) mg/dL Urine Glucose (UA) (NEGATIVE) mg/dL Urine Ketones (NEGATIVE) mg/dL Urine Occult Blood (NEGATIVE) Urine Nitrite (NEGATIVE) Urine Bilirubin (NEGATIVE) Urine Urobilinogen (NORMAL) E.U./dL Ur Leukocyte Esterase (NEGATIVE) Urine RBC (0-5) /HPF Urine WBC (0-3) /HPF Ur Squamous Epith Cells (<= Few) Urine Bacteria (None Seen) /HPF Ur Microscopic Review Urine Culture Comments Nasal Adenovirus (PCR) Nasal B. parapertussis DNA (PCR) Nasal Coronavir 229E PCR Nasal Coronavir HKU1 PCR Nasal Coronavir NL63 PCR Nasal Coronavir OC43 PCR Nasal Enterovir/Rhinovir PCR Nasal Influenza B PCR Nasal Influenza A PCR Nasal Parainfluen 1 PCR Nasal Parainfluen 2 PCR Nasal Parainfluen 3 PCR Nasal Parainfluen 4 PCR Nasal RSV (PCR) Nasal B.pertussis DNA PCR Nasal C.pneumoniae (PCR) Familia Human Metapneumo PCR Nasal M.pneumoniae (PCR) Nasal SARS-CoV-2 (PCR) Last Dose Date Last Dose Time Digoxin ng/mL Diagnostic Imaging Results: Prelim report reviewed, See rad report Impression/Plan - Problem List Problem List: 89-year-old patient with multiple past medical problems including CHF/coronary artery disease/valvular heart disease, therapeutically anticoagulated for [place] valve/CKD/hypothyroidism and advancing dementia is getting admitted with delirium/encephalopathy, acute kidney injury superimposed on chronic kidney disease in the setting of febrile illness. Source of sepsis is not clear, could be viral illness plus the patient has aspiration risk. After detailed discussion with family including patient's son and the decision was to continue treating the patient according to comfort care. Core Measures - Anticipated LOS I expect patient to be DC'd or transferred within 96 hours.: Yes - Issues Hospital Issues and Management Plan: Assessment and plan Active problems/diagnoses Encephalopathy multifactorial in the setting of metabolic abnormality/sepsis/acute kidney injury superimposed on advancing dementia Sepsis with endorgan dysfunction including acute kidney injury and encephalopathy Uncontrolled pain and inability to ambulate following multiple falls and left hip contusion/no acute fracture seen on CT imaging/Received IV morphine in the ER, continued with inability to ambulate and lower extremity pain Delirium/fluctuating mental status Self-care deficit/ambulatory dysfunction Past medical problems/pertinent comorbidities Therapeutic anticoagulation on Coumadin for mechanical aortic valve with sup ratherapeutic INR on admission Chronic kidney disease with creatinine baseline around 1.4 Coronary artery disease status post stent placement/congestive heart failure with systolic dysfunction Atrial fibrillation Hypothyroidism Plan Admitted as inpatient Comfort care Reviewed outpatient medications; will continue as appropriate; reduce dose of Coumadin and depending on the clinical course it could be discussed whether the benefit of anticoagulation would outweigh bleeding risk; as the patient reduces his oral intake at some point bleeding risk and the discomfort from Coumadin monitoring will outweigh the benefit Hold losartan in the setting of acute kidney injury Pain control with [id number] Tylenol, as needed Toradol and as needed morphine Palliative care consult/hospice evaluation for discharge planning and symptom control Social work consult for discharge planning - DVT/VTE - Prophylaxis VTE/DVT Device ordered at admit?: No Not Ordered - Medical Reason: Contraindicated (Patient is therapeutically anticoagulated for mechanical aortic valve therefore pharmacologic prophylaxis is not indicated. Due to comfort care and dementia SCDs not ordered.) VTE/DVT Prophylaxis med ordered at admit?: No Not Ordered - Medical Reason: Not indicated
[2021-11-27] MEDS ORDERED: ACETAMINOPHEN 160 MG/5 ML SUSP UDC PO SCH (23:45)
[2021-11-28] MEDS ORDERED: CARBOXYMETHYLCELLULOSE OPHTH DROPS EACHEYE PRN (00:18)
[2021-11-28] MEDS: MORPHINE 2 MG/ML CARPUJECT IVP PRN ×2 (00:31→02:28)
[2021-11-28] MEDS ORDERED: ACETAMINOPHEN 325 MG TABLET PO SCH (01:00)
[2021-11-28] MEDS: ACETAMINOPHEN 325 MG TABLET PO SCH ×3 (01:14→20:26)
[2021-11-28] MEDS: KETOROLAC 15 MG/ML VIAL IVP PRN ×3 (01:24→20:11)
[2021-11-28] MEDS: LEVOTHYROXINE 112 MCG TABLET PO SCH (07:40)
[2021-11-28] MEDS: DONEPEZIL 5 MG TABLET PO SCH (10:18)
[2021-11-28] MEDS: METOPROLOL SUCCINATE 25 MG TABLET PO SCH (10:19)
--- NOTE | 2021-11-28 11:42 | PROVIDER PROGRESS NOTE ---
Subjective - Prog Note Date Prog Note Date: 11/28/21 - Subjective Pt reports feeling: No change Subjective: Pt sleeping every time I checked on him with exception of one instance when I was present for a turn and skin check. At that time he was stiff and asking not to be turned, "I was just comfortable and sleeping. I just want to sleep." Reportedly told his nurse "I just want to ." Has not had urine output yet but abdomen is soft and non-distended. Takes pills with water per RN but has otherwise had no intake. Objective - Vital Signs/Intake & Output Reviewed Vital Signs: Yes Vital Signs: Vital Signs x48h Temp Pulse Resp BP Pulse Ox 11/28/21 07:41 36.5 C 72 20 94/59 L 95 Intake & Output: Intake & Output 11/25/21 11/26/21 11/27/21 11/28/21 23:59 23:59 23:59 23:59 Intake Total 30 Balance 30 - Objective General Appearance: positive: Lethargic Eyes Bilateral: positive: Conjunctivae nml, No scleral icterus ENT: positive: Dry mucous membranes Neck: positive: Nml inspection Respiratory: positive: Chest non-tender, No respiratory distress, Breath sounds nml Cardiovascular: positive: Regular rate & rhythm Peripheral Pulses: 2+ Dorsalis pedis (R), 2+ Dorsalis pedis (L) Abdomen: positive: Non-tender, No organomegaly, Nml bowel sounds, No distention Skin: positive: Warm, Dry, Pallor, Other (Perianal wound of unclear etiology, differential including malignancy, necrotic hemorrhoid, abscess, vs unknown. Approximately 2cm x 1cm protrusion of mostly intact skin that is dark red with a small area of necrosis. Mobile and surrounded by pustules, no drainage; blanching sacral redness) Extremities: positive: Nml appearance, No pedal edema, Other (Stiff joints) Neurologic/Psychiatric: positive: Other (Oriented to self, sleepy but arousable to loud voice) - Lab Results Fish Bones: 11/27/21 14:42 11/27/21 14:42 Other Labs: Lab Results x24hrs 11/27/21 11/27/21 11/27/21 Range/Units 17:45 17:45 17:38 WBC (4.8-10.8) x10^3/uL RBC (4.70-6.10) 10^6/uL Hgb (14.0-18.0) g/dL Hct (42.0-52.0) % MCV (80.0-94.0) fL MCH (27.0-31.0) pg MCHC (32.0-36.0) g/dL RDW (12.0-15.0) % Plt Count (130-450) 10^3/uL MPV (7.4-11.4) fL Neut # (Auto) (1.5-6.6) 10^3/uL Lymph # (Auto) (1.5-3.5) 10^3/uL Lake # (Auto) (0.0-1.0) 10^3/uL Eos # (Auto) (0.0-0.7) 10^3/uL Baso # (Auto) (0.0-0.1) 10^3/uL Absolute Nucleated RBC x10^3/uL Nucleated RBC % /100WBC Manual Slide Review Platelet Estimate (NORMAL) Platelet Morphology (NORMAL) RBC Morph Micro Appear (NORMAL) PT (9.9-12.6) secs INR (0.8-1.2) Sodium (135-145) mmol/L Potassium (3.5-5.0) mmol/L Chloride (101-111) mmol/L Carbon Dioxide (21-32) mmol/L Anion Gap (6-13) BUN (6-20) mg/dL Creatinine (0.6-1.2) mg/dL Estimated GFR (MDRD) (>89) Glucose (70-100) mg/dL Lactic Acid 1.9 (0.5-2.2) mmol/L Calcium (8.5-10.3) mg/dL B-Natriuretic Peptide 606 H (5-100) pg/mL Urine Color Urine Clarity (CLEAR) Urine pH (5.0-7.5) PH Ur Specific [place] (1.002-1.030) Urine Protein (NEGATIVE) mg/dL Urine Glucose (UA) (NEGATIVE) mg/dL Urine Ketones (NEGATIVE) mg/dL Urine Occult Blood (NEGATIVE) Urine Nitrite (NEGATIVE) Urine Bilirubin (NEGATIVE) Urine Urobilinogen (NORMAL) E.U./dL Ur Leukocyte Esterase (NEGATIVE) Urine RBC (0-5) /HPF Urine WBC (0-3) /HPF Ur Squamous Epith Cells (<= Few) Urine Bacteria (None Seen) /HPF Ur Microscopic Review Urine Culture Comments Nasal Adenovirus (PCR) NOT DETECTED Nasal B. parapertussis DNA (PCR) NOT DETECTED Nasal Coronavir 229E PCR NOT DETECTED Nasal Coronavir HKU1 PCR NOT DETECTED Nasal Coronavir NL63 PCR NOT DETECTED Nasal Coronavir OC43 PCR NOT DETECTED Nasal Enterovir/Rhinovir PCR NOT DETECTED Nasal Influenza B PCR NOT DETECTED Nasal Influenza A PCR NOT DETECTED Nasal Parainfluen 1 PCR NOT DETECTED Nasal Parainfluen 2 PCR NOT DETECTED Nasal Parainfluen 3 PCR NOT DETECTED Nasal Parainfluen 4 PCR NOT DETECTED Nasal RSV (PCR) NOT DETECTED Nasal B.pertussis DNA PCR NOT DETECTED Nasal C.pneumoniae (PCR) NOT DETECTED Familia Human Metapneumo PCR NOT DETECTED Nasal M.pneumoniae (PCR) NOT DETECTED Nasal SARS-CoV-2 (PCR) NOT DETECTED Last Dose Date Last Dose Time Digoxin ng/mL 11/27/21 11/27/21 11/27/21 Range/Units 17:10 14:42 14:42 WBC (4.8-10.8) x10^3/uL RBC (4.70-6.10) 10^6/uL Hgb (14.0-18.0) g/dL Hct (42.0-52.0) % MCV (80.0-94.0) fL MCH (27.0-31.0) pg MCHC (32.0-36.0) g/dL RDW (12.0-15.0) % Plt Count (130-450) 10^3/uL MPV (7.4-11.4) fL Neut # (Auto) (1.5-6.6) 10^3/uL Lymph # (Auto) (1.5-3.5) 10^3/uL Lake # (Auto) (0.0-1.0) 10^3/uL Eos # (Auto) (0.0-0.7) 10^3/uL Baso # (Auto) (0.0-0.1) 10^3/uL Absolute Nucleated RBC x10^3/uL Nucleated RBC % /100WBC Manual Slide Review Platelet Estimate (NORMAL) Platelet Morphology (NORMAL) RBC Morph Micro Appear (NORMAL) PT 46.6 H (9.9-12.6) secs INR 4.2 H (0.8-1.2) Sodium 135 (135-145) mmol/L Potassium 3.9 (3.5-5.0) mmol/L Chloride 100 L (101-111) mmol/L Carbon Dioxide 21 (21-32) mmol/L Anion Gap 14.0 H (6-13) BUN 19 (6-20) mg/dL Creatinine 1.6 H (0.6-1.2) mg/dL Estimated GFR (MDRD) 41 L (>89) Glucose 161 H (70-100) mg/dL Lactic Acid (0.5-2.2) mmol/L Calcium 9.3 (8.5-10.3) mg/dL B-Natriuretic Peptide (5-100) pg/mL Urine Color DARK YELLOW Urine Clarity HAZY (CLEAR) Urine pH 5.0 (5.0-7.5) PH Ur Specific [place] 1.025 (1.002-1.030) Urine Protein 30 H (NEGATIVE) mg/dL Urine Glucose (UA) NEGATIVE (NEGATIVE) mg/dL Urine Ketones TRACE (NEGATIVE) mg/dL Urine Occult Blood MODERATE H (NEGATIVE) Urine Nitrite NEGATIVE (NEGATIVE) Urine Bilirubin NEGATIVE (NEGATIVE) Urine Urobilinogen 0.2 (NORMAL) (NORMAL) E.U./dL Ur Leukocyte Esterase NEGATIVE (NEGATIVE) Urine RBC 6-10 H (0-5) /HPF Urine WBC 0-3 (0-3) /HPF Ur Squamous Epith Cells FEW Squamous (<= Few) Urine Bacteria None Seen (None Seen) /HPF Ur Microscopic Review INDICATED Urine Culture Comments NOT INDICATED Nasal Adenovirus (PCR) Nasal B. parapertussis DNA (PCR) Nasal Coronavir 229E PCR Nasal Coronavir HKU1 PCR Nasal Coronavir NL63 PCR Nasal Coronavir OC43 PCR Nasal Enterovir/Rhinovir PCR Nasal Influenza B PCR Nasal Influenza A PCR Nasal Parainfluen 1 PCR Nasal Parainfluen 2 PCR Nasal Parainfluen 3 PCR Nasal Parainfluen 4 PCR Nasal RSV (PCR) Nasal B.pertussis DNA PCR Nasal C.pneumoniae (PCR) Familia Human Metapneumo PCR Nasal M.pneumoniae (PCR) Nasal SARS-CoV-2 (PCR) Last Dose Date Not Reportable Last Dose Time Not Reportable Digoxin 0.2 ng/mL 11/27/21 Range/Units 14:42 WBC 21.2 H (4.8-10.8) x10^3/uL RBC 4.07 L (4.70-6.10) 10^6/uL Hgb 12.7 L (14.0-18.0) g/dL Hct 37.9 L (42.0-52.0) % MCV 93.1 (80.0-94.0) fL MCH 31.2 H (27.0-31.0) pg MCHC 33.5 (32.0-36.0) g/dL RDW 13.8 (12.0-15.0) % Plt Count 307 (130-450) 10^3/uL MPV 11.5 H (7.4-11.4) fL Neut # (Auto) 16.4 H (1.5-6.6) 10^3/uL Lymph # (Auto) 1.2 L (1.5-3.5) 10^3/uL Lake # (Auto) 3.4 H (0.0-1.0) 10^3/uL Eos # (Auto) 0.0 (0.0-0.7) 10^3/uL Baso # (Auto) 0.1 (0.0-0.1) 10^3/uL Absolute Nucleated RBC 0.00 x10^3/uL Nucleated RBC % 0.0 /100WBC Manual Slide Review Indicated Platelet Estimate NORMAL (130-450,000) (NORMAL) Platelet Morphology NORMAL APPEARANCE (NORMAL) RBC Morph Micro Appear NORMAL APPEARANCE (NORMAL) PT (9.9-12.6) secs INR (0.8-1.2) Sodium (135-145) mmol/L Potassium (3.5-5.0) mmol/L Chloride (101-111) mmol/L Carbon Dioxide (21-32) mmol/L Anion Gap (6-13) BUN (6-20) mg/dL Creatinine (0.6-1.2) mg/dL Estimated GFR (MDRD) (>89) Glucose (70-100) mg/dL Lactic Acid (0.5-2.2) mmol/L Calcium (8.5-10.3) mg/dL B-Natriuretic Peptide (5-100) pg/mL Urine Color Urine Clarity (CLEAR) Urine pH (5.0-7.5) PH Ur Specific [place] (1.002-1.030) Urine Protein (NEGATIVE) mg/dL Urine Glucose (UA) (NEGATIVE) mg/dL Urine Ketones (NEGATIVE) mg/dL Urine Occult Blood (NEGATIVE) Urine Nitrite (NEGATIVE) Urine Bilirubin (NEGATIVE) Urine Urobilinogen (NORMAL) E.U./dL Ur Leukocyte Esterase (NEGATIVE) Urine RBC (0-5) /HPF Urine WBC (0-3) /HPF Ur Squamous Epith Cells (<= Few) Urine Bacteria (None Seen) /HPF Ur Microscopic Review Urine Culture Comments Nasal Adenovirus (PCR) Nasal B. parapertussis DNA (PCR) Nasal Coronavir 229E PCR Nasal Coronavir HKU1 PCR Nasal Coronavir NL63 PCR Nasal Coronavir OC43 PCR Nasal Enterovir/Rhinovir PCR Nasal Influenza B PCR Nasal Influenza A PCR Nasal Parainfluen 1 PCR Nasal Parainfluen 2 PCR Nasal Parainfluen 3 PCR Nasal Parainfluen 4 PCR Nasal RSV (PCR) Nasal B.pertussis DNA PCR Nasal C.pneumoniae (PCR) Familia Human Metapneumo PCR Nasal M.pneumoniae (PCR) Nasal SARS-CoV-2 (PCR) Last Dose Date Last Dose Time Digoxin ng/mL - Diagnostic Imaging Diagnostic Imaging Results: positive: Final report reviewed Diagnostic Imaging Comments: 11/27 chest xray: bilateral interstitial and air space infiltrates compatible w ith pulmonary edema 2/2 CHF, no definitive radiographic evidence for pneumonia 11/27 CT abdomen: normal appendix. no bowel obstruction or abnormal bowel wall thickening. No free fluid or free air. Sigmoid diverticulosis without evidence of acute diverticulitis. Small hiatal hernia. Left renal cyst. No renal stone or hydronephrosis. Chollithiasis without CT evidence of acute cholecystitis. S mall bilateral pleural effusion and adjacent bibasilar dependent atelectasis. Moderate atherosclerotic disease. Sepsis Event Note (H) - Evaluation Current Stage of Sepsis: Sepsis Possible source of Sepsis: positive: Unknown - Sepsis Criteria Sepsis Criteria: Recorded Heart Rate greater than 90 bpm, Recorded Respiratory Rate greater than 20, WBC count greater than 12,000 or less than 4000 Assessment/Plan - Problem List (1) Sepsis Impression: Unclear origin. Seen in the ED 3 days prior with a WBC of 12, now up to 21 on admission. Full work up done in the ED, unremarkable. He does have a small somewhat painful wound on his perianus but it is not a clear abscess or skin infection. Small polyp appearing wound that is dark red with a small region of necrosis, no induration or purulence. No other skin breakdown noted other than blanching redness on the sacrum. Given that the family has elected for comfort measures only, no treatment was initiated. Qualifiers: Sepsis type: sepsis due to unspecified organism Sepsis acute organ dysf unction status: with acute organ dysfunction Severe sepsis acute organ dy sfunction type: encephalopathy (2) Comfort measures only status Impression: Pt initially admitted with uncontrolled pain and sepsis of unclear etiology. Last evening after he was admitted the family elected to place him on comfort care given his advanced and progressing dementia. Nursing reports he has been telling them he would like to . Social Work had multiple conversations with the Pt's family today and they have decided they would like the patient to transfer to an inpatient hospice facility. [facility] has been contacted and per SW note today we will likely hear tomorrow if and when they can accept him. In the meantime he has been kept comfortable as best as possible. He has not been eating or drinking and has had no urine output. I will have nursing bladder scan him and may have them place a escobar catheter if needed. Given his lack of intake and sepsis picture it is possible he will in the next week or so. We will plan to keep him comfortable until he discharges to inpatient hospice or he passes. (3) Hip pain, bilateral Impression: Due to multiple falls at home. No acute fracture or abnormality noted at outside facility per admission H&P. Has appeared to be comfortably sleeping but when moved yells in pain and requests not to be moved. Has been receiving morphine and toradol for pain, will plan to continue this. (4) Renal failure (ARF), acute on chronic Impression: Per admission H&P his baseline creatinine is around 1.4. It was 1.6 yesterday. He has not been receiving IVF or having urine output. As family has elected for comfort measures only, this will not continue to be monitored or treated. A escobar may be placed for comfort should his bladder not be emptying naturally. Qualifiers: Acute renal failure type: unspecified Chronic kidney disease stage: unspecified stage Qualified Code(s): N17.9 - Acute kidney failure, unspecified; N18.9 - Chronic kidney disease, unspecified
[2021-11-28] MEDS: MORPHINE SOL 10 MG/0.5 ML ORAL SYRINGE PO PRN (14:21)
[2021-11-28] MEDS ORDERED: ATORVASTATIN 10 MG TABLET PO SCH (21:00)
[2021-11-28] MEDS ORDERED: DIGOXIN 125 MCG TABLET PO SCH (21:00)
[2021-11-29] MEDS: KETOROLAC 15 MG/ML VIAL IVP PRN ×2 (05:37→18:48)
[2021-11-29] MEDS: LEVOTHYROXINE 112 MCG TABLET PO SCH (05:37)
[2021-11-29] MEDS: METOPROLOL SUCCINATE 25 MG TABLET PO SCH (09:18)
[2021-11-29] MEDS: DONEPEZIL 5 MG TABLET PO SCH (09:19)
[2021-11-29] MEDS: ACETAMINOPHEN 325 MG TABLET PO SCH ×2 (09:19→20:00)
[2021-11-29] MEDS: MORPHINE SOL 10 MG/0.5 ML ORAL SYRINGE PO PRN ×4 (10:40→19:44)
--- NOTE | 2021-11-29 14:08 | PROVIDER PROGRESS NOTE ---
Subjective - Prog Note Date Prog Note Date: 11/29/21 - Subjective Pt reports feeling: No change Subjective: Pt sleeping every time I have stopped to see him, appears to be comfortable. Objective - Vital Signs/Intake & Output Reviewed Vital Signs: Yes Vital Signs: Vital Signs x48h Temp Pulse Resp BP Pulse Ox 11/29/21 09:14 36.5 C 79 20 112/65 93 Intake & Output: Intake & Output 11/26/21 11/27/21 11/28/21 11/29/21 23:59 23:59 23:59 23:59 Intake Total 330 Output Total 0 0 Balance 330 0 - Objective General Appearance: positive: No acute distress, Other (Sleeping, appears to be comfortable in bed) Eyes Bilateral: positive: No lid inflammation ENT: positive: Dry mucous membranes Respiratory: positive: No respiratory distress, Breath sounds nml Cardiovascular: positive: Regular rate & rhythm, No murmur Peripheral Pulses: 2+ Dorsalis pedis (R), 2+ Dorsalis pedis (L) Abdomen: positive: Non-tender, No organomegaly, Nml bowel sounds, No distention Skin: positive: Pallor, Other (Perianal wound of unclear etiology, differential including malignancy, necrotic hemorrhoid, abscess, vs unknown. Approximately 2cm x 1cm protrusion of mostly intact skin that is dark red with a small area of necrosis. Mobile and surrounded by pustules, no drainage; blanching sacral redness) Extremities: positive: Nml appearance, No pedal edema Neurologic/Psychiatric: positive: Other (Sleeping, orientation not assessed given known dementia) - Lab Results Fish Bones: 11/27/21 14:42 11/27/21 14:42 Sepsis Event Note (H) - Evaluation Current Stage of Sepsis: Sepsis Possible source of Sepsis: positive: Unknown - Sepsis Criteria Sepsis Criteria: Recorded Heart Rate greater than 90 bpm, Recorded Respiratory Rate greater than 20, WBC count greater than 12,000 or less than 4000 Assessment/Plan - Problem List (1) Sepsis Impression: Unclear origin. Seen in the ED 11/24 days prior with a WBC of 12, now up to 21 on admission. Full work up done in the ED, unclear source. He does have a small somewhat painful wound on his perianus but it is not a clear abscess or skin infection. Small polyp appearing wound that is dark red with a small region of necrosis, no induration or purulence. No other skin breakdown noted other than blanching redness on the sacrum. Given that the family has elected for comfort measures only, no treatment was initiated. Qualifiers: Sepsis type: sepsis due to unspecified organism Sepsis acute organ dysfunction status: with acute organ dysfunction Severe sepsis acute organ dysfunction type: encephalopathy (2) Comfort measures only status Impression: Pt initially admitted with uncontrolled pain and sepsis of unclear etiology. The evening of 11/27 after he was admitted the family elected to place him on comfort care given his advanced and progressing dementia. Nursing reports he has been telling them he would like to . Social Work had multiple conversations with the Pt's family 11/28 and they have decided they would like the patient to transfer to an inpatient hospice facility. [facility] has been contacted and per SW note today we will likely hear tomorrow if and when they can accept him. In the meantime he has been kept comfortable as best as possible. He has not been eating or drinking and has had no urine output. I will have nursing bladder scan him and may have them place a escobar catheter if needed. Given his lack of intake and sepsis picture it is possible he will in the next week or so. We will plan to keep him comfortable until he discharges to inpatient hospice or he passes. I discussed Pt's condition with his son Boo today 11/29, as he was wondering how sick his father is and if he should withdraw comfort care measures and attempt to treat the sepsis. We discussed the lab findings from admission, including increased leukocytosis, kidney injury, and BNP elevation that may be indicative of heart failure. We discussed that we are able to start IV antibiotic therapy to try and reverse the course of this illness, and do a full work up, but that it may not work and he may pass regardless. Boo notes that the patient "didn't have any quality of life lately anyway" due to progressive decline in his dementia and functioning, and after this discussion Boo determined that the family would like to continue to keep the patient comfortable and continue comfort measures. He has been in conversations with his mother, who is in agreement. (3) Hip pain, bilateral Impression: Due to multiple falls at home. No acute fracture or abnormality noted at outside facility per admission H&P. Has appeared to be comfortably sleeping but when moved yells in pain and requests not to be moved. Has been receiving morphine and toradol for pain, will plan to continue this. (4) Renal failure (ARF), acute on chronic Impression: Per admission H&P his baseline creatinine is around 1.4. It was 1.6 11/27. He has not been receiving IVF or having urine output. As family has elected for comfort measures only, this will not continue to be monitored or treated. A escobar may be placed for comfort should his bladder not be emptying naturally. Qualifiers: Acute renal failure type: unspecified Chronic kidney disease stage: unspecified stage Qualified Code(s): N17.9 - Acute kidney failure, unspecified; N18.9 - Chronic kidney disease, unspecified
[2021-11-29] MEDS ORDERED: WARFARIN 2.5 MG TABLET PO SCH (21:00)
[2021-11-30] MEDS: MORPHINE SOL 10 MG/0.5 ML ORAL SYRINGE PO PRN ×5 (06:06→20:32)
[2021-11-30] MEDS: ACETAMINOPHEN 325 MG TABLET PO SCH ×2 (09:28→20:32)
[2021-11-30] MEDS: METOPROLOL SUCCINATE 25 MG TABLET PO SCH (09:29)
--- NOTE | 2021-11-30 13:59 | PROVIDER PROGRESS NOTE ---
Assessment/Plan - Problem List (1) Sepsis Assessment/Plan: Unclear origin. Seen in the ED on 11/24/21with hip pain and then had WBC of 12, and at this most recent ED presentation, his WBC was up to 21. Full work up started in the ED, and unclear source. He was ordered to get broad spectrum antibx using iv Cefepime, Flagyl and Vanco, but before they were administered, the and son decided to make him Comfort Care only. He does have a small somewhat painful perianal mass, not sure if this is an abs cess, or tumor, or skin infection. Around it are multiple small, raised yellow lesions that could be furuncles containing pus. Since that the family has elected for comfort measures only, no further work-up or treatment was initiated. (2) Comfort measures only status Impression: Pt initially hospitalized with uncontrolled hip pain and sepsis of unclear etio logy. As admission was being planned, the family elected to place him on comfort care, because of his advanced and progressing dementia. Nursing reports he has been telling them he would like to . Social Work had multiple conversations with the Pt's family and they have decided they would like the patient to transfer to an inpatient hospice facility. [facility] has been contacted and per SW note today, they will accept him tomorrow; a COVID test was requested to be done today. Resp PCR for COVID was ordered today. In the meantime he has been kept comfortable as best as possible using narcotics and Toradol for pain control. He has not been eating or drinking. He has a Sibley in place. (3) Hip pain, bilateral Impression: This is due to multiple falls at home. No acute fracture or abnormality noted, per admission H&P. Has appeared to be comfortably sleeping but when moved, he yells in pain and requests not to be moved. He has been receiving morphine and toradol for pain, will plan to continue this. (4) Renal failure (ARF), acute on chronic Impression: Per admission H&P his baseline creatinine is around 1.4. It was 1.6 at presentation. He has not been receiving IVF. Since family has elected for comfort measures only, no labs have been monitore. A Sibley was placed for comfort . Qualifiers: Acute renal failure type: unspecified Chronic kidney disease stage: unspecified stage Qualified Code(s): N17.9 - Acute kidney failure, unspecified; N18.9 - Chronic kidney disease, unspecified (5) Hematuria Impression: Overnight, he had a kink in his Sibley tubing, and was retaining urine. No imaging was ordered. The kink was resolved and there is free flowing urine today and since then there has been some hematuria. - Current Meds Current Meds: Current Medications Generic Name Dose Route Start Last Admin Trade Name Freq PRN Reason Stop Dose Admin Acetaminophen 975 mg 11/28/21 01:00 11/30/21 09:28 Acetaminophen 325 Mg Tablet PO 975 mg BID ANA Administration Ketorolac Tromethamine 15 mg 11/27/21 23:15 11/29/21 18:48 Ketorolac 15 Mg/Ml Vial IVP 12/02/21 23:14 15 mg Q6HR PRN Administration PAIN Metoprolol Succinate 25 mg 11/28/21 09:00 11/30/21 09:29 Metoprolol Succinate 25 Mg Tablet PO 25 mg DAILY ANA Administration Morphine Sulfate 10 mg 11/27/21 21:26 11/30/21 09:28 Morphine Amber 10 Mg/0.5 Ml Oral Syringe PO 10 mg Q2HR PRN Administration PAIN Morphine Sulfate 2 mg 11/27/21 21:26 11/28/21 02:28 Morphine 2 Mg/Ml Carpuject IVP 2 mg Q2HR PRN Administration Pain or Shortness of air - Lab Result Fish Bone Diagrams: 11/27/21 14:42 11/27/21 14:42 - Additional Planning My Orders: My Active Orders 11/30/21 RESPIRATORY PCR PANEL Urgent 11/30/21 13:43 Admit [Admit \ Transfer \ Status] [RC] .ONCE Subjective - Subjective Patient Reports: Resting Comfortably Objective Vital Signs: Vital Signs - 24 hr 11/29/21 11/30/21 11/30/21 15:59 05:52 08:10 Temperature 36.4 C L 36.5 C 36.4 C L Heart Rate [ 83 82 67 Brachial] Respiratory 16 15 16 Rate Blood Pressure 111/55 L [Left Brachial artery] Blood Pressure 105/74 106/70 [Right Brachial artery] O2 Saturation 92 97 93 Oxygen O2 Source Room air I&O (Last 24 Hrs): Intake and Output Totals x24h 11/28/21 11/29/21 11/30/21 23:59 23:59 23:59 Intake Total 330 350 60 Output Total 0 1400 200 Balance 330 -1050 -140 General: Other (Asleep, had narcotics for pain. Sibley is draining bloody urine) HEENT: Mucous membr. moist/pink Neck: Supple Neuro: Disoriented, Non Focal Cardiovascular: Regular rate Respiratory: No respiratory distress Genitourinary: Other (Sibley in place) Extremities: No edema - Results Results: Laboratory Results WBC 21.2 x10^3/uL (4.8-10.8) H 11/27/21 14:42 RBC 4.07 10^6/uL (4.70-6.10) L 11/27/21 14:42 Hgb 12.7 g/dL (14.0-18.0) L 11/27/21 14:42 Hct 37.9 % (42.0-52.0) L 11/27/21 14:42 MCV 93.1 fL (80.0-94.0) 11/27/21 14:42 MCH 31.2 pg (27.0-31.0) H 11/27/21 14:42 MCHC 33.5 g/dL (32.0-36.0) 11/27/21 14:42 RDW 13.8 % (12.0-15.0) 11/27/21 14:42 Plt Count 307 10^3/uL (130-450) 11/27/21 14:42 MPV 11.5 fL (7.4-11.4) H 11/27/21 14:42 Neut # (Auto) 16.4 10^3/uL (1.5-6.6) H 11/27/21 14:42 Lymph # (Auto) 1.2 10^3/uL (1.5-3.5) L 11/27/21 14:42 [place] # (Auto) 3.4 10^3/uL (0.0-1.0) H 11/27/21 14:42 Eos # (Auto) 0.0 10^3/uL (0.0-0.7) 11/27/21 14:42 Baso # (Auto) 0.1 10^3/uL (0.0-0.1) 11/27/21 14:42 Absolute Nucleated RBC 0.00 x10^3/uL 11/27/21 14:42 Nucleated RBC % 0.0 /100WBC 11/27/21 14:42 Manual Slide Review Indicated 11/27/21 14:42 Platelet Estimate NORMAL (130-450,000) (NORMAL) 11/27/21 14:42 Platelet Morphology NORMAL APPEARANCE (NORMAL) 11/27/21 14:42 RBC Morph Micro Appear NORMAL APPEARANCE (NORMAL) 11/27/21 14:42 PT 46.6 secs (9.9-12.6) H 11/27/21 14:42 INR 4.2 (0.8-1.2) H 11/27/21 14:42 Sodium 135 mmol/L (135-145) 11/27/21 14:42 Potassium 3.9 mmol/L (3.5-5.0) 11/27/21 14:42 Chloride 100 mmol/L (101-111) L 11/27/21 14:42 Carbon Dioxide 21 mmol/L (21-32) 11/27/21 14:42 Anion Gap 14.0 (6-13) H 11/27/21 14:42 BUN 19 mg/dL (6-20) 11/27/21 14:42 Creatinine 1.6 mg/dL (0.6-1.2) H 11/27/21 14:42 Estimated GFR (MDRD) 41 (>89) L 11/27/21 14:42 Glucose 161 mg/dL (70-100) H 11/27/21 14:42 Lactic Acid 1.9 mmol/L (0.5-2.2) 11/27/21 17:45 Calcium 9.3 mg/dL (8.5-10.3) 11/27/21 14:42 B-Natriuretic Peptide 606 pg/mL (5-100) H 11/27/21 17:45 Urine Color DARK YELLOW 11/27/21 17:10 Urine Clarity HAZY (CLEAR) 11/27/21 17:10 Urine pH 5.0 PH (5.0-7.5) 11/27/21 17:10 Ur Specific [place] 1.025 (1.002-1.030) 11/27/21 17:10 Urine Protein 30 mg/dL (NEGATIVE) H 11/27/21 17:10 Urine Glucose (UA) NEGATIVE mg/dL (NEGATIVE) 11/27/21 17:10 Urine Ketones TRACE mg/dL (NEGATIVE) 11/27/21 17:10 Urine Occult Blood MODERATE (NEGATIVE) H 11/27/21 17:10 Urine Nitrite NEGATIVE (NEGATIVE) 11/27/21 17:10 Urine Bilirubin NEGATIVE (NEGATIVE) 11/27/21 17:10 Urine Urobilinogen 0.2 (NORMAL) E.U./dL (NORMAL) 11/27/21 17:10 Ur Leukocyte Esterase NEGATIVE (NEGATIVE) 11/27/21 17:10 Urine RBC 6-10 /HPF (0-5) H 11/27/21 17:10 Urine WBC 0-3 /HPF (0-3) 11/27/21 17:10 Ur Squamous Epith Cells FEW Squamous (<= Few) 11/27/21 17:10 Urine Bacteria None Seen /HPF (None Seen) 11/27/21 17:10 Ur Microscopic Review INDICATED 11/27/21 17:10 Urine Culture Comments NOT INDICATED 11/27/21 17:10 Nasal Adenovirus (PCR) NOT DETECTED 11/27/21 17:38 Nasal B. parapertussis DNA (PCR) NOT DETECTED 11/27/21 17:38 Nasal Coronavir 229E PCR NOT DETECTED 11/27/21 17:38 Nasal Coronavir HKU1 PCR NOT DETECTED 11/27/21 17:38 Nasal Coronavir NL63 PCR NOT DETECTED 11/27/21 17:38 Nasal Coronavir OC43 PCR NOT DETECTED 11/27/21 17:38 Nasal Enterovir/Rhinovir PCR NOT DETECTED 11/27/21 17:38 Nasal Influenza B PCR NOT DETECTED 11/27/21 17:38 Nasal Influenza A PCR NOT DETECTED 11/27/21 17:38 Nasal Parainfluen 1 PCR NOT DETECTED 11/27/21 17:38 Nasal Parainfluen 2 PCR NOT DETECTED 11/27/21 17:38 Nasal Parainfluen 3 PCR NOT DETECTED 11/27/21 17:38 Nasal Parainfluen 4 PCR NOT DETECTED 11/27/21 17:38 Nasal RSV (PCR) NOT DETECTED 11/27/21 17:38 Nasal B.pertussis DNA PCR NOT DETECTED 11/27/21 17:38 Nasal C.pneumoniae (PCR) NOT DETECTED 11/27/21 17:38 Familia Human Metapneumo PCR NOT DETECTED 11/27/21 17:38 Nasal M.pneumoniae (PCR) NOT DETECTED 11/27/21 17:38 Nasal SARS-CoV-2 (PCR) NOT DETECTED 11/27/21 17:38 Last Dose Date Not Reportable 11/27/21 14:42 Last Dose Time Not Reportable 11/27/21 14:42 Digoxin 0.2 ng/mL 11/27/21 14:42 Sepsis Event Note (H) - Evaluation Current Stage of Sepsis: Sepsis Possible source of Sepsis: positive: Unknown - Sepsis Criteria Sepsis Criteria: Recorded Heart Rate greater than 90 bpm, Recorded Respiratory Rate greater than 20, WBC count greater than 12,000 or less than 4000
[2021-11-30 14:51] LABS: B. PARAPERTUSSIS- RESP PCR PAN NOT DETECTED; B. PERTUSSIS- RESP PCR PANEL NOT DETECTED; C. PNEUMONIAE- RESP PCR PANEL NOT DETECTED; CORONAVIRUS 229E-RESP PCR NOT DETECTED; CORONAVIRUS HKU1-RESP PCR NOT DETECTED; CORONAVIRUS NL63-RESP PCR NOT DETECTED; CORONAVIRUS OC43-RESP PCR NOT DETECTED; HUMAN METAPNEUMOVIRUS NOT DETECTED; INFLUENZA A- RESP PCR PANEL NOT DETECTED; INFLUENZA B - RESP PCR PANEL NOT DETECTED; M. PNEUMONIAE- RESP PCR PANEL NOT DETECTED; PARAINFLUENZA VIRUS 1 NOT DETECTED; PARAINFLUENZA VIRUS 2 NOT DETECTED; PARAINFLUENZA VIRUS 3 NOT DETECTED; PARAINFLUENZA VIRUS 4 NOT DETECTED; RHINOVIRUS/ENTEROVIRUS NOT DETECTED; RSV- RESP PCR PANEL NOT DETECTED; SARS-CoV-2 -RESP PCR PANEL NOT DETECTED
[2021-11-30] MEDS: KETOROLAC 15 MG/ML VIAL IVP PRN (19:32)
[2021-12-01] MEDS: MORPHINE SOL 10 MG/0.5 ML ORAL SYRINGE PO PRN ×2 (03:57→10:32)
[2021-12-01] MEDS: METOPROLOL SUCCINATE 25 MG TABLET PO SCH (09:57)
[2021-12-01] MEDS: ACETAMINOPHEN 325 MG TABLET PO SCH (09:57)
[2021-12-01 10:15] VITALS: BP 106/58
--- NOTE | 2021-12-01 10:32 | Discharge Plan ---
Discharge Plan for SNF / CUSTODIAL - Discharge Plan And Transition Orders Problem Reviewed?: Yes Disposition: 50 Hospice/Home DC/Xfer Condition: Serious Allergies and Adverse Reactions: Allergies Allergy/AdvReac Type Severity Reaction Status Date / Time amoxicillin trihydrate * Allergy Unknown Verified 11/27/21 14:38 [From Augmentin] potassium clavulanate * Allergy Unknown Verified 11/27/21 14:38 [From Augmentin] Health Concerns: hospice care Plan of Treatment: pt may continue hospice care Care Goals: comfortable, quality of life, and hospice care Assessment: we discussed the care plan in detail with pt's family, pt's family agreed the care plan - SNF / CUSTODIAL Transition Orders Admit to (Facility): [facility] Under the care of (Name): hospice care team Discharge Diagnosis: comfortable care only status, hospice care, sepsis, advanced dementia, DENNIS, hematuria Medicare Certification Statement: I do not certify that Post Hospital fdc care is medically necessary on a continuing basis for any of the conditions for which she/he is receiving care during hospitalization. Notify PCP of admission and forward orders to primary provider for signature. Other Notification Orders: Call PCP immediately if patient develops dyspnea, chest pain/tightness or edema. Additional Bowel Program Orders: If no BM after 2 days, nurse may give M.O.M. 30ml PO PRN and/or ducolax Supp 1 VA and/or FABIOLA 250mg P.O., and/or senna 1-2 tabs PO. On day 3 nurse may give repeat above order until residents constipation is resolved. Treatments & Other Orders: followup with hospice care Medication Orders: PLEASE REFER TO THE DISCHARGE MEDICATION LIST. Insulin Orders?: No - Medications New Prescriptions: Morphine Oral Soln [Roxanol] 10 mg PO Q2HR PRN #30 ml PRN Reason: Pain - Diet Texture: Puree
--- NOTE | 2021-12-01 10:54 | DISCHARGE SUMMARY ---
Discharge Summary Admit Date: 11/27/21 Discharge Date: 12/01/21 Discharging Provider: Lamont Scott Primary Care Provider: Gino Pereira Condition at Discharge: Serious Discharge Disposition: 50 Hospice/Home DC/Xfer Discharge Facility Name: [facility] hospice - DIAGNOSES Discharge Diagnoses with Status of Each Condition: (1) Sepsis pt had fever, and elevated WBC, unknown infection resource at the admission. with pt's hx of advance dementia with rapid function declined, pt's family choose comfortable measure only status at hospital, and hospice care after d/c. pt was accepted by [facility] hospice care. (2) Comfort measures only status pt's family choose comfortable measure only status at hospital, and hospice care after d/c (3) advanced dementia with rapid function declined pt's hx of advance dementia with rapid function declined and multiple falls at home. pt's family choose comfortable measure only status at hospital, and hospice care after d/c. (4) Renal failure (ARF), acute on chronic pt's family choose comfortable measure only status at hospital, and hospice care after d/c. (5) hx of aortic stenosis with [employer] valve repaired per pt's hx. pt's family hope continue Thyroid and blood thinners. (6) systolic and diastolic heart failure d/c with hospice care. - HPI History of Present Illness: The patient is an 89-year-old white male with past medical history of advancing dementia, hypertension, chronic kidney disease, atrial fibrillation, mechanical aortic valve/on Coumadin anticoagulation, with history of CHF, coronary artery disease and hypothyroidism. He lives with his elderly , requires full care, family reporting that the patient has been experiencing gradual but steady functional decline which has been somewhat accelerated in the past few weeks. Patient developed worsening confusion, generalized weakness and difficulty ambulating. Trying to get to the bathroom he suffered multiple falls and about 3 days ago he injured his left hip developing intense hip pain and subsequently being unable to ambulate. He was taken to [facility] where he was thoroughly evaluated and was found with no acute abnormality. Notably, he underwent CT scan of the hip and pelvis which ruled out fracture. He was Covid negative. Was described tachycardic with A. fib RVR however the family at that time declined further intervention. The patient was brought to [facility] on the evening of November 27 and was found with septic physiology, fever, tachycardia and organ dysfunction including worsening renal failure. Worsening encephalopathy could also be considered as organ dysfunction. He was Covid negative. White blood cell count increased from being 12, 3 days ago to be 21 this time. Urine analysis was negative. Ch est x-ray did not show infiltrate. Repeat imaging including abdomen did not show acute abnormality. Admission initiated for sepsis and empiric antibiotic ordered, however family, including patient's son and in agreement, requested comfort care. On exam the patient appeared tachycardic, fidgeting, uncomfortable and confused however had difficulty verbalizing his complaints. He was not oriented to context, place or time, could not discuss present complaints or meaningful history. He is being admitted under comfort care. - ALLERGIES Allergies/Adverse Reactions: Allergies Allergy/AdvReac Type Severity Reaction Status Date / Time amoxicillin trihydrate * Allergy Unknown Verified 11/27/21 14:38 [From Augmentin] potassium clavulanate * Allergy Unknown Verified 11/27/21 14:38 [From Augmentin] - MEDICATIONS Home Medications: Ambulatory Orders Medication Instructions Recorded Confirmed Carboxymethylcellulose Sodium 1 drops EACHEYE PRN PRN 04/17/18 11/27/21 [Refresh Tears] Levothyroxine Sodium [Synthroid] 112 mcg PO QDAC 04/17/18 11/27/21 Warfarin Sodium 2.5 mg PO [id number]/17/18 11/27/21 Warfarin Sodium 5 mg PO [id number]/17/18 11/27/21 Morphine Oral Soln [Roxanol] 10 mg PO Q2HR PRN #30 ml 12/01/21 - PHYSICAL EXAM AT DISCHARGE General Appearance: positive: No acute distress, Alert, Lethargic Eyes Bilateral: positive: Normal inspection ENT: positive: ENT inspection nml Neck: positive: Nml inspection Respiratory: positive: Chest non-tender, Other (shallow breathing) Cardiovascular: positive: Regular rate & rhythm. negative: Tachycardia, Bradycardia, Systolic murmur Peripheral Pulses: positive: 2+ Abdomen: positive: Non-tender, Nml bowel sounds Back: positive: Nml inspection Skin: positive: Color nml, Warm, Dry, Other (stage 1/2 pressure ulcer at buttock area) Extremities: positive: Non-tender, Nml appearance Neurologic/Psychiatric: negative: Facial droop, Slurred/abnml speech - LABS Result Diagrams: 11/27/21 14:42 11/27/21 14:42 - SEPSIS Current Stage of Sepsis: Sepsis Possible source of Sepsis: Unknown Sepsis Criteria: Recorded Heart Rate greater than 90 bpm, Recorded Respiratory Rate greater than 20, WBC count greater than 12,000 or less than 4000 - FOLLOW UP Follow Up: pt may followup with hospice care at [facility] - TIME SPENT Time Spent in Discharge (Minutes): 30
== END 2021-12-01 12:30 | disposition hospice, home (50) ==
LOC: EDUNIT# → ED 14:28 → INTOOBSV 21:26 → UNDOADMOB 21:26 → MS2 21:26
PROVIDERS: ADMIT Internal Medicine; ATTEND Nurse Practitioner Gerontology
DX: A41.9 Sepsis, unspecified organism (principal); R65.20 Severe sepsis without septic shock; N17.9 Acute kidney failure, unspecified; I13.0 Hypertensive heart and chronic kidney disease with heart failure and stage 1 through stage 4 chronic kidney disease, or unspecified chronic kidney disease; N18.9 Chronic kidney disease, unspecified; I50.40 Unspecified combined systolic (congestive) and diastolic (congestive) heart failure; Z87.891 Personal history of nicotine dependence; Z79.01 Long term (current) use of anticoagulants; Z95.2 Presence of prosthetic heart valve; F03.90 Unspecified dementia, unspecified severity, without behavioral disturbance, psychotic disturbance, mood disturbance, and anxiety; I48.91 Unspecified atrial fibrillation; I25.10 Atherosclerotic heart disease of native coronary artery without angina pectoris; E03.9 Hypothyroidism, unspecified; Z51.5 Encounter for palliative care; R41.82 Altered mental status, unspecified; M25.551 Pain in right hip; M25.552 Pain in left hip; R53.1 Weakness; R31.9 Hematuria, unspecified; Z20.822 Contact with and (suspected) exposure to COVID-19; Z95.5 Presence of coronary angioplasty implant and graft; Z91.81 History of falling; T83.098A Other mechanical complication of other urinary catheter, initial encounter; R33.8 Other retention of urine; E78.00 Pure hypercholesterolemia, unspecified; L89.302 Pressure ulcer of unspecified buttock, stage 2
CPT/HCPCS: 36415; 71045; 74176; 80048; 80162; 81001; 83605; 83880; 85025; 85610; 87040; 87631; 96374; 96375; 96376; 99285; A9270; G0378; J3370; 0202U; 81003; 87086